=== PATIENT | female | born 1985 | race Two or more races ===

== ENCOUNTER 2024-01-09 15:21 | Outpatient (OUT) | payer MEDICAID, SELFPAY ==
[2024-01-09 15:46] LABS: Hematocrit 37.9 % (36.0-48.0); Hemoglobin 12.7 g/dL (12.0-16.0); Mean Corpuscular HGB Conc 33.5 g/dL (29.9-35.2); Mean Corpuscular Hemoglobin 33.2 pg (26.7-34.0); Mean Corpuscular Volume 99.2 fL (81.0-99.0); Mean Platelet Volume 10.8 fL (9.5-13.5); Platelet Count 294 10^3/uL (150-450); Red Blood Count 3.82 10^6/uL (4.20-5.40); White Blood Count 6.7 10^3/uL (4.0-11.0)
[2024-01-09 17:48] LABS: Alanine Aminotransferase 302 U/L (14-59); Alkaline Phosphatase 422 U/L (46-116); Amylase 64 U/L (25-115); Aspartate Amino Transferase 191 U/L (15-37); BUN Creatinine Ratio 17.6; Calcium 9.4 mg/dL (8.5-10.1); Carbon Dioxide 26.1 mmol/L (21.0-32.0); Chloride 102 mmol/L (98-107); Estimated GFR (African America >60 (>=60); Estimated GFR (Non-African Ame >60 (>=60); Globulin 4.2 g/dL; Glucose 86 mg/dL (74-106); Potassium 4.1 mmol/L (3.5-5.1); Sodium 137 mmol/L (136-145); TSH W/ REFLEX FT4 1.445 uIU/mL (0.358-3.740); Total Protein 8.2 g/dL (6.4-8.2)
== END 2024-01-09 15:22 | disposition home or self-care (01) ==
LOC: LAB 15:29
PROVIDERS: PCP Nurse Practitioner; Visit Provider Nurse Practitioner
DX: L29.9 Pruritus, unspecified (principal)
CPT/HCPCS: 36415; 80053; 82150; 83690; 84443; 85027

== ENCOUNTER 2024-01-27 09:43 | Outpatient (OUT) | payer MEDICAID, SELFPAY ==
--- NOTE | 2024-01-27 09:44 | US_ITS ---
The [address] [address] Patient Name: ANMOL QUINTERO MRN: [id number] date: 1985 Sex: F Assigned Patient Location: US Current Patient Location: Accession/Order Number: [id number] Exam Date: 01/27/2024 09:46 Report Date: 01/28/2024 06:07 At the request of: MOISES BLOOM Procedure: US right upper quadrant EXAMINATION: US right upper quadrant HISTORY: Elevated Liver Enzymes R74.8 COMPARISON: No relevant comparison available. TECHNIQUE: Transabdominal evaluation of the right upper quadrant. FINDINGS: LIVER: Normal size and echotexture. Color Doppler demonstrates patent hepatic veins. PORTAL VEIN: Duplex Doppler demonstrates normal hepatopetal flow pattern with flow velocity averaging 24 cm/s. GALLBLADDER: No visible gallstones, wall thickening, or pericholecystic free fluid. Negative sonographic Dillard's sign. BILIARY: Mildly dilated common bile duct, 7 mm. No appreciable stones or mass. PANCREAS: No visible mass, abnormal atrophy, or duct dilation. KIDNEY: No hydronephrosis. No visible mass or stones. Size: 10.2 x 4.5 x 4.3 cm US/US right upper quadrant IMPRESSION: 1. Unremarkable liver. 2. Minimally dilated common bile duct; nonspecific. No appreciable stones, mass, or abnormal appearance of the gallbladder. Electronically authenticated by: MOLLY SANDHU Date: 01/28/2024 06:07
== END 2024-01-27 09:44 | disposition home or self-care (01) ==
LOC: US 09:43
PROVIDERS: PCP Nurse Practitioner; Visit Provider Nurse Practitioner
DX: R74.8 Abnormal levels of other serum enzymes (principal)
CPT/HCPCS: 76705

== ENCOUNTER 2024-06-15 12:22 | Emergency (ER) | payer MEDICAID, SELFPAY ==
[2024-06-15 12:30] VITALS: BP 118/85; PULSE 94; TEMP 37.2; O2SAT 99; BMI 19.4
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
--- OUTSIDE RECORDS SUMMARY | 2024-06-15 12:51 | XMS_ITS | CCD ---
Author Organization [facility] Care Team Providers Care College Counselor Name Role Phone Magaly Kerr Unavailable ANAND EDWARDS Primary Care Physician [phone] ANAND EDWARDS Primary Care Unavailable RIGOBERTO Daugherty Referring Unavailab RIGOBERTO Foster Attending Unavailab RIGOBERTO Foster Admitting Unavailab Feng Daley Attending Unavailable ANAND EDWARDS Primary Care Unavailable KAMILA DURANT [facility]erring [facility] Unavailable KAMILA DURANT Referring Unavailable Chacorta Lu APRN Primary Care Provide r Chacorta Lu APRN Unavailable [phone] Kamila Durant CNP Unavailable Gerson DUNCAN, Nguyen Hanley Primary Care Provider Fili BINDER COVERSTITCHAnand Unavailable Merle BINDER COVERSTITCH, [place] Primary Care Provider Merle MAPPER - BINDER COVERSTITCH, [place] Primary Care Provider CHACORTA LU Primary Care Unavailab Jose Hensley Referring Unavailable CHACORTA LU Primary Care Unavailab KAMILA Mccullough Referring Unavailable Jose Paulino Attending Unavailable LOR DAVIS Admitting Unavailable CHACORTA LU Primary Care Unavailab LOR Viear Attending Unavailable [facility] Care Unavailable DEMAR TOPETE Referring Unavailable RUSTY YADAV Admitting Unavailable RUSTY YADAV Attending Unavailable [facility] Unavailable Allergies Allergy Classification Reported Allergen(s) Allergy Type Date of Onset Reaction(s) Facility (1 source) No Known Medication Allergies; Translations: [No Known Medication Allergies] Propensity to adverse reactions (disorder) [facility] Repository (3 sources) Adhesive Tape; Translations: [ADHESIVE TAPE (ROSINS)] Propensity to adverse reactions to substance Intolerance [facility] Medications Current Medications Medication Drug Class(es) Dates Sig (Normalized) Sig (Original) amoxicillin 500 mg oral capsule (1 source) Penicillin-class Antibacterial Start: 05-22-2021 take 1 capsule by mouth every eight hours Amoxicillin 500 MG 1 capsule Orally Three times a day for 7 day(s) May, Active budesonide 3 mg delayed release oral capsule (1 source) Corticosteroid Start: 05-21-2024 End: 05-21-2025 take 2 capsules by mouth once daily budesonide (ENTOCORT EC) 3 MG delayed release capsule Take 2 capsules by mouth daily 05/21/2024 05/21/2025 Active cetirizine hydrochloride 5 mg oral tablet (1 source) Histamine-1 Receptor Antagonist End: 05-22-2024 take 1 tablet by mouth once daily cetirizine (ZYRTEC) 5 MG tablet Take 1 tablet by mouth daily 05/22/2024 Discontinued cholecalciferol 0.125 mg oral tablet (1 source) Vitamin D take 1 tablet by mouth once daily vitamin D3 (CHOLECALCIFEROL) 125 MCG (5000 UT) TABS tablet Take 1 tablet by mouth Every Day Active cyclobenzaprine hydrochloride 10 mg oral tablet (3 sources) Muscle Relaxant Start: 11-20-2014 End: 05-22-2024 take 1 tablet by mouth three times daily Flexeril 10 mg Tab 10 mg = 1 tab(s), Oral, TID, Refills(s) 0 Start Date: 11/20/14 Status: Ordered hydrocortisone acetate 10 mg/ml / pramoxine hydrochloride 10 mg/ml rectal foam (3 sources) Corticosteroid Start: 11-20-2014 Proctofoam HC rectal foam 1 lina, Rectal, TID, 10 gram, Refill(s) 0 Start Date: 11/20/14 Status: Ordered Start: 11-20-2014 End: 05-22-2024 Hydrocort-Pramoxine, Periana l, (PROCTOFOAM HC) 1-1 % rectal foam Place rectally 11/20/2014 05/22/2024 Discontinued hydrOXYzine hydrochloride 25 mg oral tablet (3 sources) Antihistamine Start: 01-09-2024 take 1 tablet by mouth three times daily as needed hydrOXYzine HCl (ATARAX) 25 MG tablet 1 tablet as needed Orally three times a day for 30 days 01/09/2024 Active hydrOXYzine pamo ate (VISTARIL) 25 mg capsule Take 25 mg by mouth. Active Ibuprofen (7 sources) Nonsteroidal Anti-inflammatory Drug IBUPROFEN ORAL Ta ke by mouth. Active IBUPROFEN 100 MG/5 ML ORAL SOLN CMPD (1 source) End: IBUPROFEN 100 MG/5 ML ORAL SOLN CMPD Take by mouth 05/22/2024 Discontinued lidocaine hydrochloride 20 mg/ml mucous membrane topical solution (1 source) Antiarrhythmic, Amide Local Anesthetic Start: take 15 mL by mouth every three hours as needed Lidocaine Viscous HCl 2 % 15 ml as needed Mouth/Throat every 3 hrs for 2 days May, Active multivitamin with minerals (HAIR,SKIN AND NAILS ORAL) (7 sources) multivitamin wit h minerals (HAIR,SKIN AND NAILS ORAL) Take by mouth. Active naloxone 0.4 mg in 10 mL sodium chloride syringe (1 source) Start: IntraVENous, PRN, Opioid Reversal, Starting on Sat05/22/24 at 1018, PRN if respiratory rate is less than 6/min and patient is difficult to arouse then notify physician STAT. Mix 9 mL of sodium chloride 0.9% with 0.4 mg (1 mL) of naloxone (NARCAN) in 10 mL syringe. (Note: dilution is 0.04 mg/mL) Give 0.08 mg (2 mL of special dilution), slow IV push, repeat up to 0.4 mg (10 mL) or until patient is responsive to physical stimulation and respiratory rate is equal to or greater than 6 breaths/min. Continue to observe, if no response within 3 minutes of administration of 0.4 mg (10 mL) total, repeat dose (0.4 mg as administered previously). Concentration 0.04 mg/mL, PACU only Naproxen (3 sources) Nonsteroidal Anti-inflammatory Drug Start: naproxen Oral, PRN Pain - Mild, Refills(s) 0 Start Date: 11/20/14 Status: Ordered Start: 11-20-2014 End: 05-22-2024 naproxen (NAPROSYN) 125 MG/5 ML suspension Take by mouth 11/20/2014 05/22/2024 Discontinued 1000 ml sodium chloride 9 mg/ml injection (6 sources) Start: 05-22-2024 IntraVENous, a t 5-250 mL/hr, PRN, if patient receiving piggyback infusions and maintenance fluids are not ordered, Starting on Sat05/22/24 at 1018, For piggyback infusion, administer at same rate as piggyback for a total of 25 mL. Enter 25 mL into dose field and piggyback rate into rate field of order. If piggyback is infusing at a rate less than 100 mL/hr, enter 25 mL into dose field and 100 mL/hr into rate field of order., PACU only Start: 05-22-2024 5-40 mL, Intra VENous, EVERY 12 HOURS SCHEDULED (2 times per day), First dose on Sat05/22/24 at 1045, Until Discontinued, For Line Patency: Peripheral IV = 5 mL; Midline or Central Line = 10 mL/lumen. If following IV push medication, administer flush at same rate as the IV push. Flush volume is determined by type of infusion therapy being given. For non-viscous solutions use: Peripheral IV = 5 mL Midline or Central Line = 10 mL/lumen For viscous solutions (i.e. blood components, parenteral nutrition, contrast media, or after obtaining blood sample) use: Peripheral IV = 10 mL Midline or Central Line = 20 mL/lumen, Pre-op (day of surgery) Start: 05-22-2024 5-40 mL, Intra VENous, PRN, Starting on Sat05/22/24 at 1018, Until Discontinued, Line Care, After every IV line use, For Line Patency: Peripheral IV = 5 mL; Midline or Central Line = 10 mL/lumen. If following IV push medication, administer flush at same rate as the IV push. Flush volume is determined by type of infusion therapy being given. For non-viscous solutions use: Peripheral IV = 5 mL Midline or Central Line = 10 mL/lumen For viscous solutions (i.e. blood components, parenteral nutrition, contrast media, or after obtaining blood sample) use: Peripheral IV = 10 mL Midline or Central Line = 20 mL/lumen, PACU only triamcinolone acetonide 0.005 mg/mg topical ointment (3 sources) Corticosteroid triamcinolone (ARISTOCORT) 0.5 % ointment Apply topically 2 times daily Active ursodiol 300 mg oral capsule (1 source) Bile Acid Start: 4 End: take 1 capsule by mouth twice daily ursodiol (ACTIGALL) 300 MG capsule Take 1 capsule by mouth 2 times daily 05/21/2024 05/21/2025 Active Completed/Discontinued Medications Medication Drug Class(es) Dates Sig (Normalized) Sig (Original) ciprofloxacin 500 mg oral tablet (2 sources) Quinolone Antimicrobial Start: 11-20-2014 take 1 tablet by mouth twice daily Cipro 500 mg Tab 500 mg = 1 tab(s), Oral, BID, Take one tab by mouth twice a day for seven days, # 14 tab(s), Refills(s) 0 Start Date: 11/20/14 Status: Ordered Dicyclomine (1 source) Anticholinergic Dicyclomine HCl Not-Taking Ondansetron (1 source) Serotonin-3 Receptor Antagonist Ondansetron Not-Taking Problems Active Problems Problem Classification Problem Date Documented Da te Episodic/Chronic Cardiac dysrhythmias (1 source) Palpitations; Translations: [Palpitations] Onset: 02-08-2022 Episodic Other gastrointestinal disorders (1 source) Irritable bowel syndrome with diarrhea; Translations: [Irritable bowel syndrome with diarrhea] Chronic Other liver diseases (3 sources) Disease of liver; Translations: [Liver disease, unspecified] 04-06-2024 Chronic Other liver diseases (2 sources) Primary biliary cholangitis; 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] Onset: 05-22-2024 05-22-2024 Chronic Other liver diseases (2 sources) Liver disease, unspecified; Translations: [Disease of liver] Onset: 04-13-2024 Chronic Other liver diseases (1 source) Abnormal levels of other serum enzymes; Translations: [Abnormal levels of other serum enzymes] Onset: 02-04-2024 Episodic Other screening for suspected conditions (not mental disorders or infectious disease) (5 sources) Antibody studies abnormal; Translations: [Abnormal immunological findings in specimens from other organs, systems and tissues] Onset: 05-22-2024 05-22-2024 Episodic Spondylosis; intervertebral disc disorders; other back problems (2 sources) Neck pain 11-20-2014 Episodic Substance-related disorders (3 sources) Smoker; Translations: [Nicotine dependence, unspecified, uncomplicated] Onset: 01-29-2024 11-20-2014 Chronic Comment on above: Added secondary to d ocumentation in Social History. Past or Other Problems Problem Classification Problem Date Documented Da te Episodic/Chronic Disorders of teeth and jaw (1 source) Periapical abscess without sinus Onset: 05-22-2021 Resolved: 05-22-2021 Episodic Gastritis and duodenitis (1 source) Gastritis; Translations: [Gastritis, unspecified, without bleeding] Episodic Results Test Name Value Interpretation Reference Range Facility EGDon 05-22-2024 No dictation [facility] EGDOrdered By: User Epic on 05-22-2024 [facility] Work Phone: HCG, ,Urineon 05-22 Beta HCG ( test) Ql (U) Negative Normal NEG [facility] Comment on above: Result Comment: Spec imens with hCG levels near the threshold of the test (25 mIU/mL) may give a negative or indeterminate result. In such cases, another test should be performed with a new specimen in 48-72 hours. If early is suspected clinically in this setting, correlation with quantitative serum b-hCG level is suggested. [facility] has confirmed the use of plasma for this test. This has not been cleared or approved by the U.S. Food and Drug Administration. The FDA has determined that such clearance is not necessary. Performed By: #### U HCG #### [facility] [address] [place] [address] [place] [address] Medical Cost Consultant: Pawel Rogers MD , Urineon 4 HCG ( test) Ql (U) Negative NEGATIVE [facility] Comment on above: Specimens with hCG l evels near the threshold of the test (25 mIU/mL) may give a negative or indeterminate result. In such cases, another test should be performed with a new specimen in 48-72 hours. If early is suspected clinically in this setting, correlation with quantitative serum b-hCG level is suggested. [facility] has confirmed the use of plasma for this test. This has not been cleared or approved by the U.S. Food and Drug Administration. The FDA has determined that such clearance is not necessary. [facility] Surgical Pathology Reporton 05-22-2024 Surgical Pathology Report (NOTE) Path Number: [id number] -- Diagnosis -- A. DISTAL DUODENUM, BIOPSY: Unremarkable duodenal mucosa. No significant villous blunting or increased intraepithelial lymphocytes. B. DUODENAL BULB, BIOPSY: Unremarkable duodenal mucosa. C. GASTRIC ANTRUM, BIOPSY: Unremarkable gastric mucosa. No Helicobacter organisms identified by PRISCA stain. Separate fragment of unremarkable duodenal mucosa. D. GASTRIC BODY, BIOPSY: Unremarkable gastric mucosa. Tori Zamorano M.D. Electronically Signed Out kmg2/05/27/2024 Clinical Information Pre-Op Diagnosis: ABNORMAL CELIAC ANTIBODY PANEL Operative Findings: DISTAL DUODENUM BX; DUODENAL BULB; GASTRIC ANTRUM; BODY OF THE STOMACH Operation Performed: ESOPHAGOGASTRODUODENOSCOPY BIOPSY se Source of Specimen A: DISTAL DUODENUM BX B: DUODENAL BULB C: GASTRIC ANTRUM BIOPSY D: BODY STOMACH BIOPSY Gross Description A. ANMOL LEON, DISTAL DUODENUM BX Received in formalin are four allison-white tissue fragments from 0.1 to 0.9 cm and are 1.9 x 0.3 x 0.2 cm in aggregate. Entirely 1cs. B. ANMOL LEON, DUODENAL BULB Received in formalin are four allison-white tissue fragments from 0.2 to 0.8 cm and are 1.7 x 0.2 x 0.2 cm in aggregate. Entirely 1cs. C. ANMOL LEON, GASTRIC ANTRUM Received in formalin are three allison-white tissue fragments from < 0.1 to 0.7 cm and are 1.4 x 0.5 x 0.2 cm in aggregate. Entirely 1cs. D. ANMOL LEON, BODY OF THE STOMACH Received in formalin are four allison-white tissue fragments from 0.1 to 0.8 cm and are 1.6 x 0.2 x 0.2 cm in aggregate. Entirely 1cs. jj tm Abdiaziz Briceño M.D./se:05/25/2024 Microscopic Description A-D. Microscopic examination performed. Processing Lab: [address] [id number] Interpretation Performed at [facility] [place] [facility] [address] [place] [address] SURGICAL PATHOLOGY CONSULTATION Patient Name: ANMOL GUARDADO [facility] Rec: [id number] [facility] ANATOMIC PATHOLOGY [address] [place], [place] [address] [facility] 05-21-2024 CNPN Telephone (GASTA5) ANMOL GUARDADO ([id number]) 1985 F Date Time Provider Department 05/21/24 JOSE PAULINO GASTA5 During your visit today, we recorded the following information about you: Luzma Gaxiola, ILIANA 05/21/2024 8:28 AM Signed Pt sent the following mcm: I've recently experienced bruising horribly all over my legs without injuring involved. I've also been experiencing pains in my right ribs cage all the way down, middle of sternum area and chest pains. No shortness of breath. My legs have been aching horribly as well. Following up with dining room host on Jun.01 to hopefully start injections for the itching bc the cream they prescribed me is not helping and it's been the same. Severe, especially at night. It's not allowing me to attach photos. I was wanting to send of my legs. My body scarring from the rash as well too. They are on my buttocks as well the rash and scarring from itching. No other extremities except, legs, upper and lower back, chest, stomach, and buttocks. Nurse advised: -We will forward the images and update to Dr. Paulino I always recommend going to the ER or urgent care when new or worsening symptoms occur, especially with chest pain involved. It is best to be evaluated by a provider in person to rule out any other causes of the chest pain and other symptoms. It also looks like your liver biopsy resulted, we will also let him know of this in order for him to review it Pictures attached under scanned docs (Patient entered attachments) Luzma Gaxiola RN May 21, 2024 8:27 AM Jose Paulino MD 05/21/2024 2:54 PM Addendum I spoke with her about liver biopsy; together with elevated alk phos and AMA dx PBC is secure Whether there is a element of autoimmune hepatitis (based on AST and ALT but not biopsy) is problematic That said, I want her on ursodiol 300 mg BID (55 kg) AND budesonide 6 mg per day monthly labs call if problems see me Aug as scheduled Jose Paulino MD Liver, transjugular biopsy (corrected sinusoidal pressure 8 mmHg): - Features compatible with primary biliary cholangitis. - Bridging fibrosis. - See comment. Diagnosis Comment The trichrome highlights distorted liver architecture with bridging fibrosis. The portal tracts contain moderate to dense inflammatory infiltrates of predominantly lymphocytes, admixed with plasma cells, eosinophils, and neutrophils. There are scattered foci of interface activity. Bile ductular reaction is present. Many portal tracts are incomplete, which makes evaluation of bile ducts difficult. Interlobular bile duct injury is evident, and there is a concern for interlobular bile duct loss. The lobular parenchyma exhibits rare foci of necroinflammatory activity. Plasma cells are not prominent in portal tracts or lobular parenchyma. There is no evidence of significant steatosis or cholestasis. The iron stain is negative. The PAS-D stain is negative for intracytoplasmic globules in hepatocytes. Immunohistochemical stain for CK7 highlights bile ducts, bile ductules, and intermediate hepatocytes. 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 There is no definitive histologic evidence of autoimmune hepatitis in this biopsy, although the possibility of autoimmune hepatitis-primary biliary cholangitis overlap syndrome cannot be entirely excluded. Clinical correlation and follow-up are suggested. Jose Paulino MD 05/21/2024 2:54 PM Signed Addended by: JOSE PAULINO on: 05/21/2024 02:54 PM Modules accepted: Orders Allergies As of Date: 05/21/2024 Noted Allergy Reaction TAPE (ADHESIVE TAPE (ROSINS)) 05/11/2024 5 - Intolerance Comments: Plastic medical tape Date Reviewed: 05/11/2024 Reviewed by: Iesha Bazan RN - Fully Assessed Reason for Visit: Patient Update [1234] Patient Question [6297] Primary Visit Diagnosis:Primary biliary cholangitis (HCC) [K74.3] Order(s):ursodiol (ACTIGALL) 300 mg capsuleTake 1 capsule by mouth two times a day.Disp: 180 capsuleRfl: 3 budesonide, enteric coated (ENTOCORT EC) 3 mg 24 hr capsuleTake 2 capsules by mouth once daily.Disp: 60 capsuleRfl: 11 HEPATIC FUNCTION PNL [SQHFP] Order #: [id number] STANDING Prescriptions as of 05/21/2024 - ursodiol (ACTIGALL) 300 mg capsule Take 1 capsule by mouth two times a day. - budesonide, enteric coated (ENTOCORT EC) 3 mg 24 hr capsule Take 2 capsules by mouth once daily. - hydrOXYzine pamoate (VISTARIL) 25 mg capsule Take 25 mg by mouth. - triamcinolone acetonide topical 0.5 % ointment Apply to affected area two times a day. - IBUPROFEN ORAL Take by mouth. - multivitamin with minerals (HAIR,SKIN AND NAILS ORAL) Take by mouth. (more content not included)... Normal [facility] BRIEF OP NOTon 05-11-2024 BRIEF OP NOT HNO ID: [id number] Author: LOR DAVIS MD Service: Interventional Radiology Author Type: Physician Type: Brief Op Note Filed: 05/11/2024 16:19 Note Text: BRIEF OPERATIVE / PROCEDURE NOTE LOG ID: [id number] SURGERY/PROCEDURE DATE: 05/11/2024 INCISION/PROCEDURE START TIME: 3:43 PM INCISION CLOSE/PROCEDURE END TIME: SURGEON(S)/PROCEDURALIST(S) AND METAL PATTERN MAKER(S): Surgeons and Role: * Lor Davis MD - Primary No Additional Staff SURGERY/PROCEDURE(S): 4:06 PM ANESTHESIA: Procedural Sedation FINDINGS: Successful TJLBx with pressure measurements as follows (mmHg): RA: 0 IVC:0 FWHV: 1 WRHV: 9 ESTIMATED BLOOD LOSS: <10 mls SPECIMENS: 18G x 3 COMPLICATIONS: None CLOSURE TECHNIQUE: Primary PRE-OP/PRE-PROCEDURE DIAGNOSIS: Elevated LFTs POST-OP/POST-PROCEDURE DIAGNOSIS: Same as Preop SIGNATURE: Lor Davis MD PATIENT NAME: Anmol Guardado DATE: May 11, 2024 TIME: 4:06 PM Normal [facility] HISTORY PHYSICALon HISTORY PHYSICAL HNO ID: [id number] Author: LOR DAVIS MD Service: Interventional Radiology Author Type: Physician Type: H&P Filed: 05/11/2024 14:53 Note Text: RADIOLOGY PROCEDURAL SEDATION HISTORY AND PHYSICAL EXAM SERVICE DATE: 05/11/2024 SERVICE TIME: 2:53 PM Subjective HPI: This is a 39 year old female who presents with chronically elevated LFTs, 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 PROCEDURE SCHEDULED: Procedure(s) with comments: TRANSCATHETER BIOPSY (N/A) - spk to pt 04/16 RADIOLOGY ORDER PLACED: PAST ANESTHESIA HISTORY: No history of adverse event No past medical history on file. No past surgical history on file. Prior to Admission medications as of 05/11/24 1414 Medication Sig Last Dose Taking triamcinolone acetonide topical 0.5 % ointment Apply to affected area two times a day. 05/11/2024 Yes IBUPROFEN ORAL Take by mouth. 05/10/2024 Yes hydrOXYzine pamoate (VISTARIL) 25 mg capsule Take 25 mg by mouth. 05/09/2024 multivitamin with minerals (HAIR,SKIN AND NAILS ORAL) Take by mouth. ALLERGIES Allergen Reactions Tape [Adhesive Tape* Intolerance Plastic medical tape Objective PHYSICAL EXAM: The remainder of the physical exam is noncontributory. AIRWAY: Airway Visualization of Uvula: Yes Mouth opening greater than 2 fingerbreadths: Yes Neck Full Range of Motion: Yes LUNGS: Lungs clear to auscultation, Good diaphragmatic excursion CARDIAC: Normal S1 and S2; no rubs, murmurs, or gallops Assessment/Plan ASA Class: ASA Class: Patient with severe systemic disease Provisional Diagnosis/Treatment Plan: Elevated LFTs and autoimmune hepatitis. Sedation Goal: Moderate SIGNATURE: Lor Davis MD PATIENT NAME: Anmol Guardado DATE: May 11, 2024 TIME: 2:45 PM Normal [facility] IR TRANSJUG LIVER BX W/PRESS on 05-11-2024 IR TRANSJUG LIVER BX W/PRESS * * *Final Report* * * DATE OF EXAM: May 11 2024 4:06PM [facility] [id number] - IR TRANSJUG LIVER BX W/PRESS / PROCEDURE REASON: K76.9-Liver disease * * * * Physician Interpretation * * * * PROCEDURE: TRANSJUGULAR LIVER BIOPSY WITH PRESSURE MEASUREMENTS Procedural Personnel Attending physician(s): Lor Davis M.D. Fellow physician(s): None Resident physician(s): None Advanced practice provider(s): None Medical Student(s): None Pre-procedure diagnosis: Liver dysfunction Post-procedure diagnosis: Same Indication: Elevated liver enzymes Additional clinical history: Autoimmune hepatitis. Fibrosis suspected from ultrasound LEFT sonography. PROCEDURE SUMMARY: - Venous access with ultrasound guidance - Hepatic venography - Pressure measurements - Transjugular liver biopsy with fluoroscopic guidance - Additional procedure(s): None PROCEDURE DETAILS: Pre-procedure Consent: Risks, benefits, treatment options, potential complications and personnel to be involved were discussed (including the risks of radiation exposure, contrast and anesthesia administration, and any equipment needed for the procedure to ensure best possible outcome) with the patient and all questions were answered and consent was obtained prior to procedure. Premedicated for contrast allergy: n/a Transfusion of blood products: No Medication reconciliation: The patient's medications and allergies were reviewed in the electronic medical record and reconciled to the proposed procedure/treatment. Alanis-procedure discussion: The appropriate elements of the pre-procedure discussion, safety check list and sign-out were performed. Time out: A time out was performed immediately prior to procedure start with the nursing and interventional team, correctly identifying the name, date of , procedure, anatomy (including marking of site and side if applicable), patient position, procedure consent form, relevant diagnostic and radiology test results, antibiotic administration if applicable, safety precautions, and procedure-specific equipment needs. Start of procedure: 3:43 PM End of procedure: 4:06 PM Patient position: Supine Preparation: The site was prepared and draped using all elements of maximal sterile barrier technique including sterile gloves, sterile gown, cap, mask, large sterile sheet, sterile ultrasound probe cover, hand hygiene and cutaneous antisepsis. Contrast Contrast agent: OMNIPAQUE 240 Contrast volume (mL): 5 Image Guidance Fluoroscopic and sonographic FLUOROSCOPIC RADIATION SUMMARY: Plane A, Air Kerma: 4.0 mGy Dose Area Product (DAP): 56.96 Fluoro Time: 3:48 min:sec Radiation dose exceed 5 Gy: No If radiation dose exceeded 5 Gy, was counseling and instructional brochure provided: N/A Anesthesia/sedation Level of anesthesia/sedation: Moderate sedation (conscious sedation) Anesthesia/sedation administered by: Independent trained observer under attending supervision with continuous monitoring of the patient?s level of consciousness and physiologic status Total intra-service sedation time (minutes): 23 minutes Local anesthesia: 2 % lidocaine Intraprocedural med: None Intraprocedural med: None Access Local anesthesia was administered. The vessel was sonographically evaluated and determined to be patent. Real time ultrasound was used to visualize needle entry into the vessel and a permanent image was stored. Vein accessed: Right internal jugular vein Access technique: Micropuncture set with 21 gauge needle A 9 F sheath was placed. Venography Vein catheterized: Right hepatic vein Indication for venography: Document catheter position and to assess for caliber of hepatic vein Findings: No filling defects or narrowing of the hepatic vein Pressure measurements Pressure measurements were obtained via balloon occlusion catheter. Mean right atrial pressure (mmHg): 0 Mean inferior vena cava pressure (mmHg): 0 Mean free hepatic vein pressure (mmHg): 1 Mean wedged hepatic vein pressure (mmHg): 9 Biopsy Samples were obtained of the liver parenchyma from the hepatic vein using the transjugular liver biopsy set. Core needle biopsy device: Argon TLAB 7 F Transjugular Liver Biopsy System (18 G needle) Core needle size (gauge): 18 G Number of passes: 3 Number of core specimens: 3 Specimen preparation: Formalin Additional Details Additional description of procedure: None Equipment details: 5 F MPA catheter and 5.5 F Zaida balloon Estimated blood loss (mL): Less than 10 Standardized report: SIR_TransjugularLiverBiopsyP ressures_v2 Closure The sheath was removed and hemostasis was achieved with manual compression and no additional aid. A sterile bandage was applied. Complications There were no immediate complications and no other complications. Conclusion The patient was comfor (more content not included)... Normal [facility] NURSING PROGon 05-11-2024 NURSING PROG HNO ID: [id number] Author: ALBA REVELES, RN Service: Nursing Author Type: Registered Nurse Type: Nursing Progress Note Filed: 05/12/2024 08:16 Note Text: Completed post procedure phone call. Patient is feeling well and has returned to activity. She denies questions or concerns related to transjugular liver biopsy appointment and had no surgical site concerns other than some soreness that is manageable. Instructed to call to [phone] with any questions/concerns. Normal [facility] SURGICAL PATHOLOGYon 024 CASE REPORT Normal [facility] Comment on above: Order Comment: Christine knutson Type: TISSUE SPECIMEN Ordering Facility: [facility] Address: [address] [place] [address] Result Comment: Surg ical Pathology Report Case: [id number] Authorizing Provider: Lor Davis MD Collected: 05/11/2024 03:59 PM Ordering Location: [place] [address] Received: 05/11/2024 05:52 PM Pathologist: Bebeto Ayala MD Specimen: Liver, Biopsy Performed By: #### S #### [facility] CLIA [id number] [address] [place] [address] [place] CLINICAL HISTORY Elevated LFTs; autoi mmune hepatitis Normal [facility] Comment on above: Order Comment: Christine knutson Type: TISSUE SPECIMEN Ordering Facility: [facility] Address: [address] [place] [address] Performed By: #### S #### [facility] CLIA [id number] [address] [place] [address] [place] DIAGNOSIS COMMENT Normal [facility] Comment on above: Order Comment: Christine knutson Type: TISSUE SPECIMEN Ordering Facility: [facility] Address: [address] [place] [address] Result Comment: The trichrome highlights distorted liver architecture with bridging fibrosis. The portal tracts contain moderate to dense inflammatory infiltrates of predominantly lymphocytes, admixed with plasma cells, eosinophils, and neutrophils. There are scattered foci of interface activity. Bile ductular reaction is present. Many portal tracts are incomplete, which makes evaluation of bile ducts difficult. Interlobular bile duct injury is evident, and there is a concern for interlobular bile duct loss. The lobular parenchyma exhibits rare foci of necroinflammatory activity. Plasma cells are not prominent in portal tracts or lobular parenchyma. There is no evidence of significant steatosis or cholestasis. The iron stain is negative. The PAS-D stain is negative for intracytoplasmic globules in hepatocytes. Immunohistochemical stain for CK7 highlights bile ducts, bile ductules, and intermediate hepatocytes. 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 There is no definitive histologic evidence of autoimmune hepatitis in this biopsy, although the possibility of autoimmune hepatitis-primary biliary cholangitis overlap syndrome cannot be entirely excluded. Clinical correlation and follow-up are suggested. Laboratory Developed Test (LDT) Disclaimer: Performance characteristics of immunohistochemical, immunofluorescent and chromogenic in-situ hybridization tests have been determined by the performing laboratory within [facility] Medicine Department ([facility], [facility], [facility], [facility], [facility], [facility], or [facility]) in a manner consistent with CLIA requirements. One or more of these tests have not been cleared or approved by the FDA. [facility] is regulated under CLIA as qualified to perform high-complexity testing. These tests are used for clinical purposes. They should not be regarded as investigational or for research. Positive and negative controls stain appropriately. Performed By: #### S #### [facility] CLIA [id number] [address] [place] [address] [place] FINAL DIAGNOSIS Normal [facility] Comment on above: Order Comment: Speci men Type: TISSUE SPECIMEN Ordering Facility: [facility] Address: [address] [place] [address] Result Comment: Live r, transjugular biopsy (corrected sinusoidal pressure 8 mmHg): - Features compatible with primary biliary cholangitis. - Bridging fibrosis. - See comment. Performed By: #### S #### [facility] CLIA [id number] [address] [place] [address] [place] FINAL PERFORMING LAB Normal [facility] Comment on above: Order Comment: Speci men Type: TISSUE SPECIMEN Ordering Facility: [facility] Address: [address] [place] [address] Result Comment: Diag nostic interpretation performed at [facility], [address] [place] [address] CLIA# [id number] Table Cover Folder: Neri Hood M.D. Performed By: #### S #### [facility] CLIA [id number] [address] [place] [address] [place] GROSS DESCRIPTION Normal [facility] Comment on above: Order Comment: Speci men Type: TISSUE SPECIMEN Ordering Facility: [facility] Address: [address] [place] [address] Result Comment: Casey ruffin, Biopsy Received in formalin on Telfa gauze are multiple segments of cylindrical tissue aggregating to 1.8 x 0.3 x 0.1 cm, allison-brown and of a soft and friable consistency. Totally submitted in one cassette. DL May 11, 2024 8:35 PM Gross examination performed at [facility], [address] [place] [address] Performed By: #### S #### [facility] CLIA [id number] [address] [place] [address] [place] CBC W Auto Differential pane l (Bld)on 05-08-2024 Basophils (Bld) [#/Vol] 0.06 10*3/uL Normal <0.11 [facility] Comment on above: Order Comment: Speci men Type: BLOOD SPECIMEN Ordering Facility: [facility] Address: [address] [place] [address] Performed By: #### 5 7021-8 #### [facility] CLIA [id number] [address] [place] [address] [place] Basophils/100 WBC (Bld) 1.1 % Normal [facility] Comment on above: Order Comment: Speci men Type: BLOOD SPECIMEN Ordering Facility: [facility] Address: [address] [place] [address] Performed By: #### 5 7021-8 #### [facility] CLIA [id number] [address] [place] [address] [place] Differential cell count method Nom (Bld) Auto Normal [facility] Comment on above: Order Comment: Speci men Type: BLOOD SPECIMEN Ordering Facility: [facility] Address: [address] [place] [address] Performed By: #### 5 7021-8 #### [facility] CLIA [id number] [address] [place] [address] [place] Eosinophils (Bld) [#/Vol] 0.34 10*3/uL Normal <0.46 [facility] Comment on above: Order Comment: Speci men Type: BLOOD SPECIMEN Ordering Facility: [facility] Address: [address] [place] [address] Performed By: #### 5 7021-8 #### [facility] CLIA [id number] [address] [place] [address] [place] Eosinophils/100 WBC (Bld) 6.0 % Normal [facility] Comment on above: Order Comment: Speci men Type: BLOOD SPECIMEN Ordering Facility: [facility] Address: [address] [place] [address] Performed By: #### 5 7021-8 #### [facility] CLIA [id number] [address] [place] [address] [place] Erythrocyte distribution width (RBC) [Ratio] 13.6 % Normal 11.5-15.0 [facility] Comment on above: Order Comment: Speci men Type: BLOOD SPECIMEN Ordering Facility: [facility] Address: [address] [place] [address] Performed By: #### 5 7021-8 #### [facility] CLIA [id number] [address] [place] [address] [place] Hematocrit (Bld) [Volume fraction] 39.9 % Normal 36.0-46.0 [facility] Comment on above: Order Comment: Speci men Type: BLOOD SPECIMEN Ordering Facility: [facility] Address: [address] [place] [address] Performed By: #### 5 7021-8 #### [facility] CLIA [id number] [address] [place] [address] [place] Hemoglobin (Bld) [Mass/Vol] 13.2 g/dL Normal 11.5-15.5 [facility] Comment on above: Order Comment: Speci men Type: BLOOD SPECIMEN Ordering Facility: [facility] Address: [address] [place] [address] Performed By: #### 5 7021-8 #### [facility] CLIA [id number] [address] [place] [address] [place] Immature granulocytes (Bld) [#/Vol] 10*3/uL Normal <0.10 [facility] Comment on above: Order Comment: Speci men Type: BLOOD SPECIMEN Ordering Facility: [facility] Address: [address] [place] [address] Performed By: #### 5 7021-8 #### [facility] CLIA [id number] [address] [place] [address] [place] Immature granulocytes/100 WBC (Bld) 0.4 % Normal [facility] Comment on above: Order Comment: Speci men Type: BLOOD SPECIMEN Ordering Facility: [facility] Address: [address] [place] [address] Performed By: #### 5 7021-8 #### [facility] CLIA [id number] [address] [place] [address] [place] Lymphocytes (Bld) [#/Vol] 2.31 10*3/uL Normal 1.00-4.00 [facility] Comment on above: Order Comment: Speci men Type: BLOOD SPECIMEN Ordering Facility: [facility] Address: [address] [place] [address] Performed By: #### 5 7021-8 #### [facility] CLIA [id number] [address] [place] [address] [place] Lymphocytes/100 WBC (Bld) 41.0 % Normal [facility] Comment on above: Order Comment: Speci men Type: BLOOD SPECIMEN Ordering Facility: [facility] Address: [address] [place] [address] Performed By: #### 5 7021-8 #### [facility] CLIA [id number] [address] [place] [address] [place] MCH (RBC) [Entitic mass] 33.2 pg Normal 26.0-34.0 [facility] Comment on above: Order Comment: Speci men Type: BLOOD SPECIMEN Ordering Facility: [facility] Address: [address] [place] [address] Performed By: #### 5 7021-8 #### [facility] CLIA [id number] [address] [place] [address] [place] MCHC (RBC) [Mass/Vol] 33.1 g/dL Normal 30.5-36.0 [facility] Comment on above: Order Comment: Speci men Type: BLOOD SPECIMEN Ordering Facility: [facility] Address: [address] [place] [address] Performed By: #### 5 7021-8 #### [facility] CLIA [id number] [address] [place] [address] [place] MCV (RBC) [Entitic vol] 100.3 fL High 80.0-100.0 [facility] Comment on above: Order Comment: Speci men Type: BLOOD SPECIMEN Ordering Facility: [facility] Address: [address] [place] [address] Performed By: #### 5 7021-8 #### [facility] CLIA [id number] [address] [place] [address] [place] Monocytes (Bld) [#/Vol] 0.62 10*3/uL Normal <0.87 [facility] Comment on above: Order Comment: Speci men Type: BLOOD SPECIMEN Ordering Facility: [facility] Address: [address] [place] [address] Performed By: #### 5 7021-8 #### [facility] CLIA [id number] [address] [place] [address] [place] Monocytes/100 WBC (Bld) 11.0 % Normal [facility] Comment on above: Order Comment: Speci men Type: BLOOD SPECIMEN Ordering Facility: [facility] Address: [address] [place] [address] Performed By: #### 5 7021-8 #### [facility] CLIA [id number] [address] [place] [address] [place] Neutrophils (Bld) [#/Vol] 2.28 10*3/uL Normal 1.45-7.50 [facility] Comment on above: Order Comment: Speci men Type: BLOOD SPECIMEN Ordering Facility: [facility] Address: [address] [place] [address] Performed By: #### 5 7021-8 #### [facility] CLIA [id number] [address] [place] [address] [place] Neutrophils/100 WBC (Bld) 40.5 % Normal [facility] Comment on above: Order Comment: Speci men Type: BLOOD SPECIMEN Ordering Facility: [facility] Address: [address] [place] [address] Performed By: #### 5 7021-8 #### [facility] CLIA [id number] [address] [place] [address] [place] Nucleated RBC (Bld) [#/Vol] 10*3/uL Normal <0.01 [facility] Comment on above: Order Comment: Speci men Type: BLOOD SPECIMEN Ordering Facility: [facility] Address: [address] [place] [address] Performed By: #### 5 7021-8 #### [facility] CLIA [id number] [address] [place] [address] [place] Nucleated RBC/100 WBC (Bld) [Ratio] 0.0 /100 WBC Normal [facility] Comment on above: Order Comment: Speci men Type: BLOOD SPECIMEN Ordering Facility: [facility] Address: [address] [place] [address] Performed By: #### 5 7021-8 #### [facility] CLIA [id number] [address] [place] [address] [place] Platelet mean volume (Bld) [Entitic vol] 11.9 fL Normal 9.0-12.7 [facility] Comment on above: Order Comment: Speci men Type: BLOOD SPECIMEN Ordering Facility: [facility] Address: [address] [place] [address] Performed By: #### 5 7021-8 #### [facility] CLIA [id number] [address] [place] [address] [place] Platelets (Bld) [#/Vol] 280 10*3/uL Normal 150-400 [facility] Comment on above: Order Comment: Speci men Type: BLOOD SPECIMEN Ordering Facility: [facility] Address: [address] [place] [address] Performed By: #### 5 7021-8 #### [facility] CLIA [id number] [address] [place] [address] [place] RBC (Bld) [#/Vol] 3.98 10*6/uL Normal 3.90-5.20 [facility] Comment on above: Order Comment: Speci men Type: BLOOD SPECIMEN Ordering Facility: [facility] Address: [address] [place] [address] Performed By: #### 5 7021-8 #### [facility] CLIA [id number] [address] [place] [address] [place] WBC (Bld) [#/Vol] 5.63 10*3/uL Normal 3.70-11.00 [facility] Comment on above: Order Comment: Speci men Type: BLOOD SPECIMEN Ordering Facility: [facility] Address: [address] [place] [address] Performed By: #### 5 7021-8 #### [facility] CLIA [id number] [address] [place] [address] [place] Comprehensive metabolic 2000 panelon 05-08-2024 Albumin [Mass/Vol] 4.2 g/dL Normal 3.9-4.9 [facility] Comment on above: Order Comment: Speci men Type: BLOOD SPECIMEN Ordering Facility: [facility] Address: [address] [place] [address] Performed By: #### 2 4323-8 #### [facility] CLIA [id number] [address] [place] [address] [place] ALP [Catalytic activity/Vol] 316 U/L High 34-123 [facility] Comment on above: Order Comment: Speci men Type: BLOOD SPECIMEN Ordering Facility: [facility] Address: [address] [place] [address] Performed By: #### 2 4323-8 #### [facility] CLIA [id number] [address] [place] [address] [place] ALT [Catalytic activity/Vol] 156 U/L High 7-38 [facility] Comment on above: Order Comment: Speci men Type: BLOOD SPECIMEN Ordering Facility: [facility] Address: [address] [place] [address] Performed By: #### 2 4323-8 #### [facility] CLIA [id number] [address] [place] [address] [place] Anion gap [Moles/Vol] 11 mmol/L Normal 8-15 [facility] Comment on above: Order Comment: Speci men Type: BLOOD SPECIMEN Ordering Facility: [facility] Address: [address] [place] [id number] Performed By: #### 2 4323-8 #### [facility] CLIA [id number] [address] [place] [address] [place] AST [Catalytic activity/Vol] 116 U/L High 13-35 [facility] Comment on above: Order Comment: Speci men Type: BLOOD SPECIMEN Ordering Facility: [facility] Address: [address] [place] [id number] Performed By: #### 2 4323-8 #### [facility] CLIA [id number] [address] [place] [address] [place] Bilirubin [Mass/Vol] 1.5 mg/dL High 0.2-1.3 [facility] Comment on above: Order Comment: Speci men Type: BLOOD SPECIMEN Ordering Facility: [facility] Address: [address] [place] [id number] Performed By: #### 2 4323-8 #### [facility] CLIA [id number] [address] [place] [address] [place] Calcium [Mass/Vol] 9.9 mg/dL Normal 8.5-10.2 [facility] Comment on above: Order Comment: Speci men Type: BLOOD SPECIMEN Ordering Facility: [facility] Address: [address] [place] [id number] Performed By: #### 2 4323-8 #### [facility] CLIA [id number] [address] [place] [address] [place] Chloride [Moles/Vol] 101 mmol/L Normal 98-107 [facility] Comment on above: Order Comment: Speci men Type: BLOOD SPECIMEN Ordering Facility: [facility] Address: [address] [place] [id number] Performed By: #### 2 4323-8 #### [facility] CLIA [id number] [address] [place] [address] [place] CO2 [Moles/Vol] 25 mmol/L Normal 22-30 [facility] Comment on above: Order Comment: Speci men Type: BLOOD SPECIMEN Ordering Facility: [facility] Address: [address] [place] [address] Performed By: #### 2 4323-8 #### [facility] CLIA [id number] [address] [place] [address] [place] Creatinine [Mass/Vol] 0.62 mg/dL Normal 0.58-0.96 [facility] Comment on above: Order Comment: Speci men Type: BLOOD SPECIMEN Ordering Facility: [facility] Address: [address] [place] [address] Performed By: #### 2 4323-8 #### [facility] CLIA [id number] [address] [place] [address] [place] Creatinine and Glomerular filtration rate.predicted panel (S/P/Bld) 116 mL/min/1.73m??? Normal >=60 [facility] Comment on above: Order Comment: Speci men Type: BLOOD SPECIMEN Ordering Facility: [facility] Address: [address] [place] [address] Result Comment: Marcelina mated Glomerular Filtration Rate (eGFR) is calculated using the 2020 CKD-EPI creatinine equation. This equation utilizes serum creatinine, sex, and age as parameters. The creatinine assay has traceable calibration to isotope dilution-mass spectrometry. Refer to KDIGO guidelines for clinical interpretation. In patients with unstable renal function, e.g. those with acute kidney injury, the eGFR may not accurately reflect actual GFR. Performed By: #### 2 4323-8 #### [facility] CLIA [id number] [address] [place] [address] [place] Glucose [Mass/Vol] 75 mg/dL Normal 74-99 [facility] Comment on above: Order Comment: Speci men Type: BLOOD SPECIMEN Ordering Facility: [facility] Address: [address] [place], [place] [id number] Result Comment: The [place] Diabetes Association (ADA) provides guidance for cutoff values for fasting glucose and random glucose. The ADA defines fasting as no caloric intake for at least 8 hours. Fasting plasma glucose results between 100 to 125 mg/dL indicate increased risk for diabetes (prediabetes). Fasting plasma glucose results greater than or equal to 126 mg/dL meet the criteria for diagnosis of diabetes. In the absence of unequivocal hyperglycemia, results should be confirmed by repeat testing. In a patient with classic symptoms of hyperglycemia or hyperglycemic crisis, random plasma glucose results greater than or equal to 200 mg/dL meet the criteria for diagnosis of diabetes. Reference: Standards of Medical Care in Diabetes 2016, [place] Diabetes Association. Diabetes Care. 2016.39(Suppl 1). Performed By: #### 2 4323-8 #### [facility] CLIA [id number] [address] [place] [address] [place] Potassium [Moles/Vol] 4.8 mmol/L Normal 3.7-5.1 [facility] Comment on above: Order Comment: Speci men Type: BLOOD SPECIMEN Ordering Facility: [facility] Address: [address] [place] [address] Performed By: #### 2 4323-8 #### [facility] CLIA [id number] [address] [place] [address] [place] Protein [Mass/Vol] 7.5 g/dL Normal 6.3-8.0 [facility] Comment on above: Order Comment: Rachnai men Type: BLOOD SPECIMEN [facility] [facility] Address: [address] [place] [address] Performed By: #### 2 4323-8 #### [facility] CLIA [id number] [address] [place] [address] [place] Sodium [Moles/Vol] 137 mmol/L Normal 136-144 [facility] Comment on above: Order Comment: Speci men Type: BLOOD SPECIMEN Ordering Facility: [facility] Address: [address] [place] [address] Performed By: #### 2 4323-8 #### [facility] CLIA [id number] [address] [place] [address] [place] Urea nitrogen [Mass/Vol] 13 mg/dL Normal 7-21 [facility] Comment on above: Order Comment: Christine knutson Type: BLOOD SPECIMEN Ordering Facility: [facility] Address: [address] [place] [address] Performed By: #### 2 4323-8 #### [facility] CLIA [id number] [address] [place] [address] [place] PT panel Coag (PPP)on 2023 INR Coag (PPP) [Relative time] 1.0 {INR} Normal 0.9-1.3 [facility] Comment on above: Order Comment: Speckatalina knutson Type: BLOOD SPECIMEN Ordering Facility: [facility] Address: [address] [place] [address] Result Comment: Nereida min K Antagonist (VKA) Therapeutic Range: INR 2 to 3 (Target INR of 2.5) Note: For patients treated with VKA drugs, such as warfarin, the [employer] 2012 Guideline recommends a therapeutic INR range of 2 to 3 (target INR of 2.5). This recommendation includes high-risk patients with antiphospholipid syndrome with previous arterial or venous thromboembolism, current-generation mechanical or bioprosthetic aortic heart valve replacement. Note: Patients with mechanical aortic valve replacement and additional risk factors for thromboembolic events (atrial fibrillation, previous thromboembolism, LV dysfunction, hypercoagulable conditions) or an older generation mechanical AVR (i.e., ball in-Cage) or any mechanical MVR should have a INR therapeutic range of 2.5 to 3.5 (target INR of 3). Dianelys GH, et al. Chest 2012, 141:7S-47S Bi MARIA et al. JAC 2017, 70: 252-289 Performed By: #### 5 8410-2 #### [facility] CLIA [id number] [address] [place] [address] [place] PT Coag (PPP) [Time] 10.2 s Normal 9.7-13.0 [facility] Comment on above: Order Comment: Speci men Type: BLOOD SPECIMEN Ordering Facility: [facility] Address: [address] [place] [address] Performed By: #### 5 8410-2 #### [facility] CLIA [id number] [address] [place] [address] [facility] NURSING PROGon 05-04-2024 NURSING PROG HNO ID: [id number] Author: AURELIA FRANCO RN Service: Nursing Author Type: Registered Nurse Type: Nursing Progress Note Filed: 05/04/2024 15:23 Note Text: Pre-procedure instructions: Contacted Anmol and confirmed appt. for transjugular liver biopsy scheduled on Saturday, 05/11, at [facility]. I will wait while you get a pen and paper, if instructions are not followed your procedure may need to be cancelled or rescheduled. Diet: Do not eat solid food after midnight the night before your procedure. You may have water until your arrival time. Medications: IF ok with your Prescribing Provider: RADIOLOGY RECOMMENDS THESE MEDICATION RESTRICTIONS Take all medications as usual. Medication pumps: Insulin pumps must be removed before entering the procedure room. Do you wear Neulasta Onpro? No If yes, the device must be removed before entering the procedure room. Contrast Dye Prep: Do you have a contrast dye allergy? No Labs: Lab work needs to be drawn prior to 05/11 at any [facility]. Arrival: Please bring your Photo ID and Insurance Card. A general consent may need to be signed. Arrival at 1:30 PM to desk QB-1 ([facility]) and check in for your procedure. Sort Worker/Transportation: How will you be arriving for your procedure? Private car. If you will be arriving at [facility] via ambulance or public transportation, please call to discuss. You will need a responsible adult to accompany you to and from the procedure. Your boom truck driver is required to stay with you until you are taken into the Procedure room. If you develop any of the following symptoms before your procedure, please call [phone]. Chills, joint pain, rash, sore throat, cough, loss of smell, reddened eyes, vomiting, abdominal pains, diarrhea, loss of taste, severe headache, weakness, bruising or bleeding, fever, muscle pain, shortness of breath Recovery expectations: You can expect to be at the hospital for the majority of the day. Please do not schedule any other appointments the day of your procedure. Special concerns: Do you use CPAP or BPAP? No If you use CPAP or BiPAP, please call to discuss. Written instructions provided to patient via [employer] If you have any questions please call [phone] [facility] ANMOL GUARDADO ([id number]) 1985 F Date Time Provider Department 04/16/24 JOSE PAULINO GASTA5 During your visit today, we recorded the following information about you: Luzma Gaxiola RN 04/16/2024 2:18 PM Signed Pt sent mcm asking you to look over recent blood work Luzma Gaxiola RN April 16, 2024 2:18 PM Jose Paulino MD 04/16/2024 2:41 PM Signed Luzma, Please let her know we got lab tests to be sure it is safe to do liver biopsy. These tests are normal. She should proceed with liver biopsy scheduled in May and call me 3-4 days after for a report. Thanks MD Minor Muller Osas, RN 04/16/2024 2:53 PM Signed Patient updated Luzma Gaxiola RN Allergies As of Date: 04/16/2024 (No Known Allergies) Date Reviewed: 04/04/2021 Reviewed by: Reid Pike (Francesca) - Fully Assessed Reason for Visit: Results [95] Prescriptions as of 04/16/2024 - IBUPROFEN ORAL Take by mouth. - multivitamin with minerals (HAIR,SKIN AND NAILS ORAL) Take by mouth. Problem List As Of Date: 04/16/2024 (None) Encounter Status:Closed by LUZMA GAXIOLA on 04/16/24 Normal [facility] CBC panel Auto (Bld)on 04-13 Erythrocyte distribution width (RBC) [Ratio] 13.1 % Normal 11.5-15.0 [facility] Comment on above: Order Comment: Christine knutson Type: BLOOD SPECIMEN Ordering Facility: [facility] Address: [address] [place] [address] Performed By: #### 5 8410-2 #### [facility] CLIA [id number] [address] [place] [address] [place] Hematocrit (Bld) [Volume fraction] 40.7 % Normal 36.0-46.0 [facility] Comment on above: Order Comment: Christine knutson Type: BLOOD SPECIMEN Ordering Facility: [facility] Address: [address] [place] [address] Performed By: #### 5 8410-2 #### [facility] CLIA [id number] [address] [place] [address] [place] Hemoglobin (Bld) [Mass/Vol] 13.6 g/dL Normal 11.5-15.5 [facility] Comment on above: Order Comment: Christine knutson Type: BLOOD SPECIMEN Ordering Facility: [facility] Address: [address] [place] [address] Performed By: #### 5 8410-2 #### [facility] CLIA [id number] [address] [place] [address] [place] MCH (RBC) [Entitic mass] 33.3 pg Normal 26.0-34.0 [facility] Comment on above: Order Comment: Speci men Type: BLOOD SPECIMEN Ordering Facility: [facility] Address: [address] [place] [address] Performed By: #### 5 8410-2 #### [facility] CLIA [id number] [address] [place] [address] [place] MCHC (RBC) [Mass/Vol] 33.4 g/dL Normal 30.5-36.0 [facility] Comment on above: Order Comment: Speci men Type: BLOOD SPECIMEN Ordering Facility: [facility] Address: [address] [place] [address] Performed By: #### 5 8410-2 #### [facility] CLIA [id number] [address] [place] [address] [place] MCV (RBC) [Entitic vol] 99.5 fL Normal 80.0-100.0 [facility] Comment on above: Order Comment: Speci men Type: BLOOD SPECIMEN Ordering Facility: [facility] Address: [address] [place] [address] Performed By: #### 5 8410-2 #### [facility] CLIA [id number] [address] [place] [address] [place] Nucleated RBC (Bld) [#/Vol] 10*3/uL Normal <0.01 [facility] Comment on above: Order Comment: Speci men Type: BLOOD SPECIMEN Ordering Facility: [facility] Address: [address] [place] [address] Performed By: #### 5 8410-2 #### [facility] CLIA [id number] [address] [place] [address] [place] Platelet mean volume (Bld) [Entitic vol] 11.9 fL Normal 9.0-12.7 [facility] Comment on above: Order Comment: Speci men Type: BLOOD SPECIMEN Ordering Facility: [facility] Address: [address] [place] [address] Performed By: #### 5 8410-2 #### [facility] CLIA [id number] [address] [place] [address] [place] Platelets (Bld) [#/Vol] 294 10*3/uL Normal 150-400 [facility] Comment on above: Order Comment: Speci men Type: BLOOD SPECIMEN Ordering Facility: [facility] Address: [address] [place] [address] Performed By: #### 5 8410-2 #### [facility] CLIA [id number] [address] [place] [address] [place] RBC (Bld) [#/Vol] 4.09 10*6/uL Normal 3.90-5.20 [facility] Comment on above: Order Comment: Speci men Type: BLOOD SPECIMEN Ordering Facility: [facility] Address: [address] [place] [address] Performed By: #### 5 8410-2 #### [facility] CLIA [id number] [address] [place] [address] [place] WBC (Bld) [#/Vol] 5.20 10*3/uL Normal 3.70-11.00 [facility] Comment on above: Order Comment: Speci men Type: BLOOD SPECIMEN Ordering Facility: [facility] Address: [address] [place] [address] Performed By: #### 5 8410-2 #### [facility] CLIA [id number] [address] [place] [address] [place] [facility] PT PNL PPPon 04-13-2024 [facility] INR PPP 1 0.9 - 1.3 [facility] Comment on above: Vitamin K Antagonist (VKA) Therapeutic Range: INR 2 to 3 (Target INR of 2.5) Note: For patients treated with VKA drugs, such as warfarin, the [employer] 2012 Guideline recommends a therapeutic INR range of 2 to 3 (target INR of 2.5). This recommendation includes high-risk patients with antiphospholipid syndrome with previous arterial or venous thromboembolism, current-generation mechanical or bioprosthetic aortic heart valve replacement. Note: Patients with mechanical aortic valve replacement and additional risk factors for thromboembolic events (atrial fibrillation, previous thromboembolism, LV dysfunction, hypercoagulable conditions) or an older generation mechanical AVR (i.e., ball in-Cage) or any mechanical MVR should have a INR therapeutic range of 2.5 to 3.5 (target INR of 3). dinesh Berg. Chest 2012, 141:7S-47S Bi MARIA et al. [facility] 2017, 70: 252-289 [facility] PROTHROMBIN TIME 10.2 [facility] Specimen Type: BLOOD SPECIMEN Ordering Facility: [facility] Address: [address] [place] [address] Original Ordering Provider: JOSE SHAW [facility] PT panel Coag (PPP)on 2023 INR Coag (PPP) [Relative time] 1.0 {INR} Normal 0.9-1.3 [facility] Comment on above: Order Comment: Speci men Type: BLOOD SPECIMEN Ordering Facility: [facility] Address: [address] [place] [address] Result Comment: Nereida min K Antagonist (VKA) Therapeutic Range: INR 2 to 3 (Target INR of 2.5) Note: For patients treated with VKA drugs, such as warfarin, the [employer] 2012 Guideline recommends a therapeutic INR range of 2 to 3 (target INR of 2.5). This recommendation includes high-risk patients with antiphospholipid syndrome with previous arterial or venous thromboembolism, current-generation mechanical or bioprosthetic aortic heart valve replacement. Note: Patients with mechanical aortic valve replacement and additional risk factors for thromboembolic events (atrial fibrillation, previous thromboembolism, LV dysfunction, hypercoagulable conditions) or an older generation mechanical AVR (i.e., ball in-Cage) or any mechanical MVR should have a INR therapeutic range of 2.5 to 3.5 (target INR of 3). dinesh Berg. Chest 2012, 141:7S-47S dinesh Pat RA. [facility] 2017, 70: 252-289 Performed By: #### 3 4528-0 #### [facility] CLIA [id number] [address] [place] [address] [place] PT Coag (PPP) [Time] 10.2 s Normal 9.7-13.0 [facility] Comment on above: Order Comment: Speci men Type: BLOOD SPECIMEN Ordering Facility: [facility] Address: [address] [place] [address] Performed By: #### 3 4528-0 #### [facility] CLIA [id number] [address] [place] [address] [place] A1 Antitrypsin Phenoon 02-06 A1 Antitryp Phenotype M1M1 Normal [facility] Comment on above: Result Comment: (NOT E) The patient appears to have a normal phenotype. All M alleles (including subtypes M1, M2, and M3) produce normal serum concentrations of dakhy-2-erisjrjg inhibitor and are not associated with clinical disease. Caution in interpretation is advised if the patient has been transfused within the previous 21 days. Performed By: [facility] [address] [place] [address] Table Cover Folder: Wicho Williamson MD, PhD CLIA Number: [id number] Performed By: #### H BS, AHAVM, ABC, AHBS, ANASCN, AMAB, ABCM, AHCV, AHAVT, CELP, CER #### [employer] [address] [place] [address] Medical Cost Consultant: Evan Talavera MD #### AASMF, AATRPH #### [facility] [address] [place] [address] Medical Cost Consultant: Bernard Vanegas MD A1 Antitrypsin 180 mg/dL Normal 90-200 [facility] Comment on above: Result Comment: To c onvert to umol/L, multiply mg/dL by 0.185 Performed By: #### H BS, AHAVM, ABC, AHBS, ANASCN, AMAB, ABCM, AHCV, AHAVT, CELP, CER #### [employer] [address] [place] [address] [phone] Medical Cost Consultant: Evan Talavera MD #### AVRIL, AATRPH #### [facility] [address] [place], [place] [id number] Medical Cost Consultant: Bernard Vanegas MD SUSAN Screenon 02-06-2024 SUSAN Screen Positive Abnormal NEG [facility] Comment on above: Performed By: #### H BS, AHAVM, ABC, AHBS, ANASCN, AMAB, ABCM, AHCV, AHAVT, CELP, CER #### [address] [id number] Medical Cost Consultant: Evan Talavera MD #### AVRIL, AATRPH #### [facility] [address] [place], [place] [id number] Medical Cost Consultant: Bernard Vanegas MD Anti-dsDNA 7.7 IU/mL Normal <10.0 [facility] Comment on above: Result Comment: Reference Range: <10.0 Negative 10.0-15.0 Equivocal >15.0 Positive Performed By: #### H BS, AHAVM, ABC, AHBS, ANASCN, AMAB, ABCM, AHCV, AHAVT, CELP, CER #### [address] [phone] Medical Cost Consultant: Evan Talavera MD #### AVRIL, AATRP #### [address] [id number] Medical Cost Consultant: Bernard Vanegas MD MAIRA Screen 3.7 U/mL High <0.7 [facility] Comment on above: Result Comment: Reference Range: <0.7 Negative 0.7-1.0 Equivocal >1.0 Positive MAIRA Screen includes U1RNP,RNP70,Sm,Ro(SS-A),La(SS-B),CENP,Scl-70,Anastacia-1 Performed By: #### H BS, AHAVM, ABC, AHBS, ANASCN, AMAB, ABCM, AHCV, AHAVT, CELP, CER #### [employer] [address] [place], [place] [id number] Medical Cost Consultant: Evan Talavera MD #### AVRIL, AATRPH #### [facility] [address] [place], [place] [phone] Medical Cost Consultant: Bernard Vanegas MD Celiac Disease Panelon 02-05 Gliadin Deam Pep IgG 14.0 U/mL High <7.0 [facility] Comment on above: Result Comment: CELIAC INTERPRETATION <7.0 Negative 7.0-10.0 Equivocal >10.0 Positive units: U/mL Performed By: #### H BS, AHAVM, ABC, AHBS, ANASCN, AMAB, ABCM, AHCV, AHAVT, CELP, CER #### [employer] [address] [place] [address] [phone] Medical Cost Consultant: Evan Talavera MD #### AVRIL, AATMAURY #### [facility] [address] [place] [address] Medical Cost Consultant: Bernard Vanegas MD Smooth Muscle Abon Smooth Muscle Ab 17 Units Normal 0-19 [facility] Comment on above: Result Comment: (NOT E) If F-Actin (Smooth Muscle) Antibody, IgG is negative, the Smooth Muscle Antibody titer by IFA is not performed. REFERENCE INTERVAL: F-Actin (Smooth Muscle) Antibody, IgG by DARLYN 19 Units or less ....... Negative 20 - 30 Units .......... Weak Positive-Suggest repeat testing in two to three weeks with fresh specimen. 31 Units or greater..... Positive-Suggestive of autoimmune hepatitis type 1 or chronic active hepatitis. F-actin IgG antibodies have been shown to have increased sensitivity for autoimmune hepatitis (AIH) but lower specificity than smooth muscle antibodies (SMA). F-actin IgG antibodies can also be seen in SMA-negative disease controls (non-AIH), especially in patients with primary biliary cirrhosis and chronic hepatitis C infections. Some patients with AIH may be SMA-positive but negative for F-actin IgG. Consider testing for SMA by IFA if suspicion for AIH is strong. Performed By: [place] [address] Table Cover Folder: Wicho Williamson MD, PhD CLIA Number: [id number] Performed By: #### H BS, AHAVM, ABC, AHBS, ANASCN, AMAB, ABCM, AHCV, AHAVT, CELP, CER #### [address] [address] Medical Cost Consultant: Evan Talavera MD #### AVRIL, AATRPH #### [facility] [address] [place], [place] [id number] Medical Cost Consultant: Bernard Vanegas MD Anti-Mitochondrial Abon Anti-Mitochondrial Ab 67.0 U/mL High 0.0-4.0 [facility] Comment on above: Result Comment: Reference Range: <4.0 Negative 4.0-6.0 Equivocal >6.0 Positive When results are Equivocal, it is recommended to retest after 8-12 weeks. Performed By: #### H BS, AHAVM, ABC, AHBS, ANASCN, AMAB, ABCM, AHCV, AHAVT, CELP, CER #### [address] [phone] Medical Cost Consultant: Evan Talavera MD #### AVRIL, AATRPH #### [facility] [address] [place] [address] Medical Cost Consultant: Bernard Vanegas MD Celiac Disease Panelon 02-04 Gliadin Deam Pep IgA 121.0 U/mL High <7.0 [facility] Comment on above: Result Comment: CELIAC INTERPRETATION <7.0 Negative 7.0-10.0 Equivocal >10.0 Positive units: U/mL Performed By: #### H BS, AHAVM, ABC, AHBS, ANASCN, AMAB, ABCM, AHCV, AHAVT, CELP, CER #### [address] [phone] Medical Cost Consultant: Evan Talavera MD #### AASMF, AATRPH #### [facility] [address] [place], [place] [phone] Medical Cost Consultant: Bernard Vanegas MD Tiss Transglutam IgA 0.5 U/mL Normal <7.0 [facility] Comment on above: Result Comment: CELIAC INTERPRETATION <7.0 Negative 7.0-10.0 Equivocal >10.0 Positive units: U/mL Performed By: #### H BS, AHAVM, ABC, AHBS, ANASCN, AMAB, ABCM, AHCV, AHAVT, CELP, CER #### [facility] [address] [place] [address] [phone] Medical Cost Consultant: Evan Talavera MD #### ROBERTMF, AATRPH #### [facility] [address] [place], [place] [phone] Medical Cost Consultant: Bernard Vanegas MD Celiac Disease Panelon 02-03 IgA [Mass/Vol] 308 mg/dL Normal 70-400 [facility] Comment on above: Performed By: #### H BS, AHAVM, ABC, AHBS, ANASCN, AMAB, ABCM, AHCV, AHAVT, CELP, CER #### [facility] [address] [place] [phone] Medical Cost Consultant: Evan Talavera MD #### AVRIL, AATRPH #### [facility] [address] [place], [place] [phone] Medical Cost Consultant: Bernard Vanegas MD Ceruloplasminon 02-04-2024 Ceruloplasmin 28 mg/dL Normal 16-45 [facility] Comment on above: Performed By: #### H BS, AHAVM, ABC, AHBS, ANASCN, AMAB, ABCM, AHCV, AHAVT, CELP, CER #### [facility] [address] [place] [address] [phone] Medical Cost Consultant: Evan Talavera MD #### AASMF, AATRPH #### [facility] [address] [place] [address] Medical Cost Consultant: Bernard Vanegas MD Hep A Abon 02-04-2024 Hep A Ab,Total Reactive Abnormal NR [facility] Comment on above: Performed By: #### H BS, AHAVM, ABC, AHBS, ANASCN, AMAB, ABCM, AHCV, AHAVT, CELP, CER #### [facility] [address] [place] [phone] Medical Cost Consultant: Evan Talavera MD #### AVRIL, AATRPH #### [facility] [address] [place] [address] Medical Cost Consultant: Bernard Vanegas MD Hep A Ab,IgMon 02-04-2024 Hep A Ab,IgM Non-Reactive Normal NR [facility] Comment on above: Performed By: #### H BS, AHAVM, ABC, AHBS, ANASCN, AMAB, ABCM, AHCV, AHAVT, CELP, CER #### [address] [address] Medical Cost Consultant: Evan Talavera MD #### AVRIL, AATRPH #### [facility] [address] [place] [address] Medical Cost Consultant: Bernard Vanegas MD Hep B Core Abon 02-04-2024 Hep B Core Ab Non-Reactive Normal NR [facility] Comment on above: Performed By: #### H BS, AHAVM, ABC, AHBS, ANASCN, AMAB, ABCM, AHCV, AHAVT, CELP, CER #### [address] [address] Medical Cost Consultant: Evan Talavera MD #### AASMF, AATRPH #### [facility] [address] [place] [address] Medical Cost Consultant: Bernard Vanegas MD Hep B Core Ab,IgMon 08-06-20 24 Hep B Core Ab,IgM Non-Reactive Normal NR [facility] Comment on above: Performed By: #### H BS, AHAVM, ABC, AHBS, ANASCN, AMAB, ABCM, AHCV, AHAVT, CELP, CER #### [address] [address] Medical Cost Consultant: Evan Talavera MD #### AVRIL AATRPH #### [facility] [address] [place], [place] [id number] Medical Cost Consultant: Bernard Vanegas MD Hep B Surf Abon 02-04-2024 Hep B Surf Ab <3.50 Normal <10 [facility] Comment on above: Result Comment: REFERENCE RANGE: <10.0 NON-REACTIVE/NOT IMMUNE >=10.0 REACTIVE/IMMUNE Performed By: #### H BS, AHAVM, ABC, AHBS, ANASCN, AMAB, ABCM, AHCV, AHAVT, CELP, CER #### [address] [address] Medical Cost Consultant: Evan Talavera MD #### AVRIL AATRPH #### [address] [address] Medical Cost Consultant: Bernard Vanegas MD Hep B Surf Agon 02-04-2024 Hep B Surf Ag Non-Reactive Normal [facility] Comment on above: Performed By: #### H BS, AHAVM, ABC, AHBS, ANASCN, AMAB, ABCM, AHCV, AHAVT, CELP, CER #### [address] [address] Medical Cost Consultant: Evan Talavera MD #### AVRIL, AATRPH #### [facility] [address] [place], [place] [phone] Medical Cost Consultant: Bernard Vanegas MD Hep C Abon 02-04-2024 Hep C Ab Non-Reactive Normal [facility] Comment on above: Result Comment: The hepatitis C procedure used in our laboratory is a Chemiluminescent test specific for three recombinant HCV antigens. A negative anti-HCV result indicates that the antibodies to hepatitis C virus are not present at this time. Individuals with reactive anti-HCV should be considered infected and infectious until proven otherwise. Confirmation of all equivocal or reactive results is recommended by ordering HCV RNA by PCR. Performed By: #### H BS, AHAVM, ABC, AHBS, ANASCN, AMAB, ABCM, AHCV, AHAVT, CELP, CER #### [employer] [facility] [address] [place] [address] Medical Cost Consultant: Evan Talavera MD #### [facility], [facility] #### [facility] [address] [place] [address] Medical Cost Consultant: Bernard Vanegas MD LIVERon 02-04-2024 US LIVER EXAMINATION: LIVER ELASTOGRAPHY ULTRASOUND; ULTRASOUND OF THE LIVER 02/04/2024 8:16 am TECHNIQUE: Liver stiffness measurements were obtained on a [employer] E9 unit with a C1-6-D transducer. 11 valid measurements were obtained using a 2D shear wave elastography method. COMPARISON: None HISTORY: ORDERING SYSTEM PROVIDED HISTORY: Elevated liver enzymes TECHNOLOGIST PROVIDED HISTORY: elevated LFT FINDINGS: LIVER: Mild enlargement of the right hemiliver potentially due to hepatomegaly or a normal variant Brian's lobe. Normal echogenicity. Mildly coarsened echotexture. No obvious surface nodularity nor focal lesions. Median stiffness: 10.16 kPa IQR:median ratio (IQR/M, results unreliable if >0.30): 0.24 BILIARY SYSTEM: Normal gallbladder. No reported right upper quadrant pain during examination. No intrahepatic biliary dilation. Normal common duct, measuring 0.5 cm. PANCREAS: Visualized portions with normal echogenicity. RIGHT KIDNEY: Normal size, echogenicity, and parenchymal thickness. No hydronephrosis. OTHER: Patent main portal vein with normal directional flow. No visualized free intraperitoneal fluid. IMPRESSION: 1. Coarsened liver echotexture suggesting underlying hepatocellular disease with no overt findings steatosis or cirrhosis. 2. Liver stiffness of 10.16 kPa, correlating with a Metavir score of F3 (severe fibrosis, 9.40-11.9 kPa). Interpreted by: Talon Dowd MD Signed by: Talon Dowd MD 02/04/24 Final result Normal [facility] US ORGAN ELASTOGRAPHYon 08-0 US ORGAN ELASTOGRAPHY EXAMINATION: LIVER ELASTOGRAPHY ULTRASOUND; ULTRASOUND OF THE LIVER 02/04/2024 8:16 am TECHNIQUE: Liver stiffness measurements were obtained on a [employer] E9 unit with a C1-6-D transducer. 11 valid measurements were obtained using a 2D shear wave elastography method. COMPARISON: None HISTORY: ORDERING SYSTEM PROVIDED HISTORY: Elevated liver enzymes TECHNOLOGIST PROVIDED HISTORY: elevated LFT FINDINGS: LIVER: Mild enlargement of the right hemiliver potentially due to hepatomegaly or a normal variant Brian's lobe. Normal echogenicity. Mildly coarsened echotexture. No obvious surface nodularity nor focal lesions. Median stiffness: 10.16 kPa IQR:median ratio (IQR/M, results unreliable if >0.30): 0.24 BILIARY SYSTEM: Normal gallbladder. No reported right upper quadrant pain during examination. No intrahepatic biliary dilation. Normal common duct, measuring 0.5 cm. PANCREAS: Visualized portions with normal echogenicity. RIGHT KIDNEY: Normal size, echogenicity, and parenchymal thickness. No hydronephrosis. OTHER: Patent main portal vein with normal directional flow. No visualized free intraperitoneal fluid. IMPRESSION: 1. Coarsened liver echotexture suggesting underlying hepatocellular disease with no overt findings steatosis or cirrhosis. 2. Liver stiffness of 10.16 kPa, correlating with a Metavir score of F3 (severe fibrosis, 9.40-11.9 kPa). Interpreted by: Talon Dowd MD Signed by: Talon Dowd MD 02/04/24 Final result Normal [facility] Coding Summary.on 03-20-2022 Coding Summary. CD:[id number] Gh0bWw+P GhlYWQ+PE2KWKUzI68fjGWyfW0SA 6dONL2UAMJJDCANOP1ZBP3bcVJ1N YwdJ3AcmdMb NjcseOJnKJ35QQf6UMC1cJxuNChr rT5kvGXgD6q0ObInKZ15bF41UOsh ZHOvJzT2PhGggklbtRMb V6beAtOhyDMxOco+PHRhYmxlIHdp VROcDSiqYEXuChGwgKcsUL0pNc9h ZGVyLWNvbGxhcHNlOiBj s3kuKJDsGUzdRC1ykHstK2UkbEL5 TKRwn0u2Rc15mYG+QAEqDQV9fFug JJmbc348BrRmb8bfNJD1 pAUxKZrbWRR3P52ip3A2CARpVKHu JED4vOQ5kI5lvPqsdbzgM4HkvIAb McR1UYL0yEVmfI3goJhs ogxrqU0nHjb+F91EJX9FONISSN7S Stq8S1FiJnhnsUZ+XT87HOEmNY91 vPNomRQpr2ctvZl0TuHh GJRgUYX1aQpmAQccy6JoQHBoQ12i qWFnz5V9PJWbmSadxJIuKeDbvSD8 dR8pXWpviypaq4dojzny Sfaup0eyjv01qH08W24bELfgPXSj QEH8TFKnPUQssWgeyi3icR0oKz9+ SHleb7fhs5uweUo0VaSo WOFwdlRmgKhpNUY2f1NaJf44N0Ck mSbkx9TdJjx0hp91qAGbt5I4mTN8 SUqaYAMioR8iAOcgJiE5 RYVmWtGeyW78mCTjVJqhBk3dnHig wEsaHQ9yHMZbhoexHLTycQ1pUMLc hUYbjXkyFD2lFWGutvyr c683SsRhZSE4PRHnsFYxN6OryY3u CaPmTXMgHMGqH7EflSSdHYjcZ067 KPsgQqL6LYGlljWhK9Lv KTCdbAtuJzJ0z9S7To0Yi6Cdaoxa XLX6WOsvZJY7IjQnIhHpJnI8V1Es Lhy2QYKbaSuvNT5yM8Ej IAZgzybchaogoZK1GZPrIDGbqQ70 mHNkGCejJz3zq5H6d746RKRjCRTh oJ45Bh0jmHfdIDQqsBYU mJ7jajqsc8iuzbxeMfOlBOTbGKh5 GZi6REFgiVehUaFvWHL9SdP7RIH8 yQUmbG8qtQpmafzntX8u Oyc+R50kyK9pBZV5JXF9qvnaBFQv lrRjGH51QF86P9CfFigatKGawBQ+ DRSntkVzmAruXK3xIdKx o0xbd6OkGGioV3SbAGGjGAafTuw3 XPGgRLL6uZC5nA0xGRVqDXoay0U9 cFF0S8FhywTkzx6vd6em YMGrMOleG88cxQWlx4B7CCFbdAN5 ENIreIkyUnUhpW05Jvm+PGNvbGdy f3XtSqgjb1fag8fuyPs3 FmBiEDKoipWbzVkiOLC6u0WlWb07 I58tBNrpOWAaHWMkHWNxREPxqQlb kr4osC4oUi0+PGNvbCB3 nMD0hS5dQLCzPeL0TLrkG058NcKi aLAfKdhcp4zav1xuwPk2TwQqNUUw tmTvgWoaTGG5h0QkSj14 T00xZNpkCUMcLWJhDBJmNPGcgTou qs9wnS0rSn1+YD1mw3nofh49bS36 dHI+KQLiZAP0uAdjFWep CWKcvY7oAIdjRyU3UEXfUuEoqO84 kRDlZVwcGl4ynUyehQjnGX5pIOIf uasbs824RkBws1qrOQEg nNKhGTvhOGB0R47mo4K5QHDiGCBn GUI0pUL7vF4eaUwargeumYCmaDum abVbfNruDProRQuwC042 IHRvcDsnPlBhdGllbnQgTmFtZTo8 B3GbDln0GUTgqFrhBF6ehEXiZPtw Pz1okNnzkYyoMJ5dMPTu dpvle342LeLce1vgZLEvtTIhZBma OZR5A19kj1L8INHtYZJqVNP9uTJ2 vZ8jwXeqcvbftFBcnTex apVigJipAWzkAFbxX726YLViuHba SdKzqqTrBGGmbQL6XX77GY71zMGe x5U7tON3D9GiLPUfegvf grloqXB2NFSvKJGpuD52Wa6xyOcg It7iEVCsESP8QPCimTQiY4TgyF2o JtUdMNNkZFAuH9CjwGFl KTggR295UZrmNvL0WPUhsmLsA4Mz XATraFprVhR9i3G7Yz7GD6W6OC76 PV31oHXxi2U9tBK7R9Qb WROuvukiwtyyyEQ1ZBHmESVykN62 Yb0dxNxnCs8iWCQwCOV2ASLjjZEs Y8OwoQ9sUcAdYDFfGCKn F0VrnIWvCHfaO493RLxwNzN3CHBv lkSwG4MmKKDmkYjbLxM8e6X0Zp3H BDf1ZW63ZQ58uNJqp9C2 gHH6N7OvFUOibcacbxpkxKK1YHKc MUFtmF31Hl8spTcrZv0sZPVlJSO2 PNUbqZKlX8OyqW7hRyHa GJYwBLBnN6MtcRAqNJukY907JFqk NoZ8ZYYjvtRpC7SxXKCzoVkzScJ8 q4V5Sc6GGKWdNM33ONW1 nAW4XO42QC94C9DlLalylHNqkQS+ PHRhYmxlIHdpZHRoPScxMDAlJyBz yYasKS9zXq9aECYyYWFt yThzaUHsXdTfp7ixKLShWEhqBY4m kKrgG1ChaMK5UCLmf1d5Pn57F88q G6YvbKS+NGSwgWN3zME9 fZ7eXfSzQwI9CDuzR365JrRosOEq Wccuh6yhb2zsaBx3ZpN3FKSqowXd lXthLVX6c1KnSg09L50v KQamVOMbTNOaCDYbEUCptRrbhj8k wH5wEn9+DVLjrMQ3yHB7rF6yFzWa BkD9UFeaI041GhMcpJOy Swrff3kxn2oqhGp2EmDuWOZmkoSm wWejRPB3f8CwYw02Y0LrbCanp2Pg Zor8hh38sQZtz7J7pEK0 G7EtPBAkzncmeRXlfOcpOD7wWUBa krcrFHFuaE8jTCBzQ2o5JtQaTgN6 NEmnQ2OmctX3DBBseXMi NVdqXDS2C95ih5N4ZFAhSBUaTJL4 oKX1oI9vkXzgmktacOTclJtfcsRf kUwcQJzhEYtnZ156HHXe kGzsOBVfxU5jBNEzsFEgyVvzAH4z NTBpbjsnPkhPTExJREFZLCBSRUJF K5ZCWOk3D9MkSfw2BVMe bGnqHK3fhWVeYVknXf7ypVjwzFru QY1iDXJfjjegMWLnfU5oQSYswZEd mGtwBN1rINXyliboz153 VnDrEON5XEJiuZKxE6OjvH3eKmAw JLGaBLEwB4KioSJtACxsQ779HVuj XnU0KOZzbyAaH5GnNSJu zTatEnY2q5L9Hv2kVc6nTs9wFMf3 IZ12ZH34uBEuy7Y7zTY9K1YxHXAo zwffjhvvkNK4DAFdLTTj rX61oMJgWKjsIi8nu3J0u751ECCn DEZjaR72Og6inDtmOTKlxLYYjI1z onssy1ljiaufAjJjVVUo FUj7TJx4VPMceCpaXyRrZIN2ZiK2 UJG3zQTnlA2ebBzqgtupiJ5qVlg+ ZacsGMWtzbP1Q5ZdYpe3 QCRuzGdhYK6xvGOrJZcdAk3kmWfc xOrfCM1vOJHywhncIXKofW3mWKWk jTAfnQkkMY7qCBWipowm d905ViPaFDS6WZQnaYBhV6EczE9u PuHfUJZaLLQvS2VzdOWmTWzqF165 VQksHrH2YTToyrWhZ9Vm VNXfhUuoYsY9b7M6Hb8NVN3kvUZ3 T3PpWbb8ELVtuYxoJJ0rvRWcZUde Ss3uyZpftZmqSH7nLTPn onggIJXygJ8sJMQyzDCxbEkpXB4b LMNxttjfx143IyScQOK3XNRppPIl F2WubG1fOjEtGJIzTBGz X8YxrGOhEMavO014SBtdSjA1AVBo piPvO7JaRGEgeAlpTlN9b2I2Mf3A kVNyZPMdIC07QM34RJ69 E1HlIehmdBBfzPH+PHRhYmxlIHdp LOMbPSgiOMKgRnJzsRpjSD3qBe4b ZGVyLWNvbGxhcHNlOiBj q6pjCDHdMZirMW9sjIlpX7WszPU3 BZFfh7a8Ga70Q60eR0CggHZ+PGNv gRO7hOS6sK8kQgTqGjT0 BQcyS098KmKjgOBcTamat4ifa6ux oGd7JcJpBXTaedWjpPizLZX8i9Qi Ne04X20pWQozNMHnSIWq KLHjBPWmxLnujl2cuL4bJe1+PGNv dTO8jHE0jP3bItYsXnO1HAcsS213 XkPcbKEaUgtsB57xH2Ui dXA+GSIlVzl7YPEqnZleVH3qpVWk OMsfTk9nNFC9ReCvVjMqXDnlZ7Je EFLoofobrbkafHE1IQYc RDAmzS88Qu8hgAmaIn4uDLBbIVL6 IOKpwDSeN2IitZ3iYgOiKJAhFCVx I5YhmAAaBJknU721NPcx WmA3UHCyzyBxQ4BrBZUzqEmhHhC7 y3D7Tv0MvZvccTWyQO6oTrRjLNk5 A9XaThi1VXLyqQjnHD9t uUCzNPfwKm4ewHbgqWisDZ0oFRVx eytld828UlPnc6jfKHFqxUJeQZrd UEM7B46wy0L8JLYuZFPx TLO8fKY3yD9ssUicawhtlUHyyEie iiIyiKbfLGdqYUgpI420FLIhoFjk LxAUVhw3K8FlBsx0ILIs oXuxNP8gaSAmHJxrNk0toUrgjCzf BO8yQMPtnmgmx285SsBkn8xiJUZv zWJtTTqvKPV9U18fj1U3 YHUzDCYyZZO2qNI2eC3vyTtjnmlh wRSpdXuewlWreQwyBFljUDqxM135 ADYxlJppTc1XZpi3Z3Hi Bzy1DKCkjQbfKN6ntQBtMMnaCr2m vDtzbJnsHI3fLCPgyyrwg925WeBb j5qsANRwgYFmSGwoNMX8 K42cq6S4TRSbYHDfOIE7rGR7uA0d bGlnbjogbGVmdDsgdmVydGljYWwt HIclN840JGXgvIbrMqEz eWVyOjwvdGQ+CO82rk31N1RsXzim Fhs7TFJzLDD3oLY4yW1xEAMiZKiu d2U1lRS5U7QcosLkgq3y b2xs (more content not included)... Normal [facility] Consent for Treatmenton 03-01 Consent for Treatment [id number]:127 Normal [facility] Coding Summary.on 02-09-2022 Coding Summary. CD:[id number] Gh0bWw+P GhlYWQ+OD6JEEWdC03hjTOnwT0UE 9zLPF2EKLUNVXUKOH5PXC1piMU7R NgrE8PacpBl YggkdBDyUQ04ZUv7CAH1rIucIAid iZ9ybENcA2r0GaZrVX69qM48SWac KHGjOmC3RuXlftvzlYOj V3lqUmHtlBLtMtg+PHRhYmxlIHdp FYBpPBxqXQGtOsOucVujMV6fQk0z ZGVyLWNvbGxhcHNlOiBj x5quJFNxCDcdLQ1jpPilR1UahCZ2 YMEwf0o5Vy86eXB+GGWsERU3aIoa GYess287HxFed7ieAGS1 cDMkRGetNNY3J44cz2X2WELnAVAl PEQ1yNX8aW1ruEgjzzhmN7YvcEKk PsV7IID6zXTkmZ6jiOsq zppkwY9aNlt+C22FJW3FUJPAND5B Wvv0Q0VuMblarJP+DE88WDTjSS96 iEBquXBgo1smaRm8EiSr BZZmJQR8dZhzHOaiu9RxNEEvC42p pNAuo0Q4AOQprJzrjJFiPwEzaXT9 pY8pIEftsgysk1ojedpd Nnqcg9zrzl01eD57G30iBTdvFMRq BCS1RTNuACAdvZrjdx0doI1hAg7+ TRsps9xhd4umxAs8ImPq FQYqbrKnjNipCQO2e8PzKa23T6Zq eZzkz7WgWdy0ia91jKFzu6O9eET5 QQxaXUZrhB8qIHxpVqT0 EQJiJkSigU63tBKaRJevIy4yiIrm vIeeKS5qCJKifsatDGKhbV9nNIZh yTPffTqyWC1sNGVcwyfn s494GxPfKZW4JGHxkWNpC5HzoV5x CoXoKYYgEDHdX7UbgQVqLGwmH544 WVsqZeX4XYVsomUiB3Mh RXIogYuqXpW7l8L0Qz9Mf6Tpcsil WFC6JJmrPQB1IyAaHsLdTbE9W6Fn Dna9GBJxoTjcQS8aZ9Ri QHVfkyseeyolxRL0YXPaDNRbnT34 aGWoKEgyYt6ye3W9p490OOMvXTTj jI13Sd1oqBmkZDLekJBT cI4mvfcyr0oituepOsCnKXJgMBm8 FIo0BMHhcDfmIbUkJPH2OzU9BJQ1 vOCvxP5cfMirkdglrF9q Oyc+W85yhK7hJLV2ABM9ayvoFHUi bkBeMN00PY24M6LwPksgsHMgbCT+ VXWqxaEwiCquLD4dVdXg z6rys1ZhRQxqN0RyHNHgKGyeYmo1 NQAuHLM2dCL9uU1eIAMxQPssc9W6 tTO5H7InykAstm4fb4vk AGCxOWspQ17dcPAwl2I7MHQmnIH4 JFVpdNbmAmXhuY70Wfx+PGNvbGdy z0QjSbdqh3hmw0obzMo9 CbWuYDFsacPfmBcbWYQ0g0WwOs28 L29hYZvbGXRwMXQnLRCwKDSgqRkv xy8gfU2kUv9+PGNvbCB3 mAH4lG8vYFFmJnR4KGqqP197IgYx pZDxCywxi6xmu6brbFj7IdIcPVQr plIunDtjLXM3z1UnLg57 W97wGWmdYXIlNEFbLILeYLYudHyd iq4ohT2xVt5+GN5kz9ytgk93rN35 dHI+THLwGMG1iZeyQMpl CQYezJ9pHTkcErK9YXXxWkKwcW25 jNTkJKxaWi8zzMfyyCcfBZ2tVQDw qmxfo002YnRla5srYMSw gYGpFNggCTD4G12ks4C2QIDvTZOs LUL2pCC8lD8gxOzmlluweEAwkMmk blIutYwkOCxmRJoiH458 IHRvcDsnPlBhdGllbnQgTmFtZTo8 S6UqBca0ZLRzpXfjWQ3xaDHsZHks Vh5zqGgztQskKM1dJUVh kpyfx438IeZgc8czRBGyzKFpRTlp HRB6X01pb5O7RUAsRMZmSMM4zSV6 bG5umIpjiimqjJVwqEtg toCqrQdeKZjrAAokY178LYTbsGtw TyYwtuTcLECqaKR3JZ46FS62qDDm o2B8vNX4Q0OkNLOukwhx jznrnIV5CIAxYSNznJ80Ol0frGmw Qd3lULTqRYQ2ETVnaRXcL6XuvF5s OhOfXHUqMQYzY5NgqFTr SOdnM427EYocTqZ5XPHmfrTcM6Bf GSLnxUerPtG4c0Q0Xu2XM4I1PO83 JX66tWKxh2D4xGB7I4Qk SKOjakcfuigrcTS3DWJxZIErwT55 Yd4ddYwePb5aMQIfXWU5YSRdjRAj P8MnsZ9rDtMhBOWgKFFe D0ZtyEOeMFprN746NEnhBlT2RHMq voOoE9GqYPTqnWzqXeD2d4T8Oi4O ZLl2MT27WS53sWOrk5B5 hER6C6DfKQPjbceobdmdlPZ5GCJy RQOhdG78Te9ylLwdRk4hRYTpEEK3 DEShaSQuA8AcsG2dZhWr TSPcRVKgH5YwtVLuSGqhU858JEax JyX1NHPmiiAaL3ElJEWsuWrtFsB2 x4J8Xu0XJUVaBZ80YFQ3 pNH1NH62MX49Q9HjNaysdGXdoNX+ PHRhYmxlIHdpZHRoPScxMDAlJyBz mNipLI6bSh5yYINmMLXv pHlbuHGqRjLry9ulEMOkCMlrUE5p kQloX2XblAF7SAIap5a2Lu38X91q D9CbcKH+VUHmqXB5dYN7 iR1wKkOuRlZ4XKxyH110RoRvsFXw Vujqk9bmb0ruoRw5GbP1KXWhocTu yHoeQWU0a0JeOy93N49y TQjiJJMlOTZxYEGnPIYqdBnvjm4n lA9dSt8+DNXheLM3cSK9cK6tSzXn OoU4AGfdV275VmYjwIRy Gtlad7gjy1yuyTm3ObDqPSGjubWn vVnjMHD6f6QhXy37M4KpiWkqe9Aj Aja1pk44hOSpf8J7mAT9 T8TzYZNpljddcKAuhKbvMI6cPURt okvhQCSsqO1jWWKrY0w9JeEqVpU6 ACwwJ5ZsnyE3WVYwlELn WJsrNFV2M31vt0H4SAKgGNGzMYN4 fPK7qU0acXqpkgmcrXBdbSwlfcPk lTzjYNcpCDxcB813DIZm sBadWXDutI3lSTBznLOjtCqsZY8c NTBpbjsnPkhPTExJREFZLCBSRUJF F3ZMURk5W0XoOfb5THUr kZrbRV2eiDFwSPafWp8pyRiseOkx OU8aJOUbkforBFDfaD1cGMGjfWRt vMwnSU9mDQQdnpeil255 EtPwBKG1EYKnwISwA7ZanA5eOpFw RKAaZFRkV6RkjGVxPZdqX835KVem GxF3JJTvvoXfQ6SeYGWp xSgtWxB9k2N9Vn2eUf3uWy0bBEg6 HZ52EU15dJOxi6F4vPJ2S3DfAKDx togamlqohOT4AHJxTYIe pZ41wVGbUAeoHd6jl7V0g523GMXr FZXcdF77Sc2huHmlQXMlbEJPbG7g gawxh9lsfryfCaFhJEOi QNg0VUm4TSJvpPyrVnUzNTI2UbO7 GCV5iLHacW3yeGwhueccdO6tFfp+ HydlXSUkolY8E0EaJnh0 ONSelEwgNM8ugFMdWNstJy2boCtn aLqqIZ9aJYCyuucwGUKjyQ1oKDGb rQEtoTogIC0rVEQuatlf x815HiCkMAM6HIGhkWFfU1CanX3t OrSvOPGlSZEiD4FqeVSlJErjS635 ZIclEiT2OFDtbbJzB0Ev OLDzxHynRdL9e6P0Ht1BXW5cuUE8 F5UqIpo1CFNiqTkcXN2gxUZdPZwj Qm1sqIhzkBfeTJ1aJGNx hpjgLQEeuM4eTQCilHRzoFznTO8v TXFdibcai313SpWoYMM6GDTprSVo K1OmkU6rTrRzBKZtZZTd D9MdlIKiQRjqL722RCfeLjY7RHOd vqRfW8SoEBNllWcpHgP6a9B9Bb2U jCQvN6DtP6b0N9QbWaks dHI+BS36MXZuTE41aOZudKBmz8qd mRj9KkTyCTGiORB7tNsqOFold4Ns TOOmV35pyVKay2D8FWEl aEdszANnHfGluEH1aZ9cUTtyoxzw e1nfjvbhVfvdr5ffqs31pN23R67f IHdpZHRoPSIzMCUiIHZh oBhuqs5iwQ9pKm9+JCCmsLT8xVF7 nN5jHeYqYsB0ZTytC947NmUkzJNw Sscmo2pun4fsjVj8MyKm FJBhuaRjpKeaYVK4h2BnKm96U06q XEepKUXlJBNsELRaUDOgaFasmp2f fS0jOb6+SO8kw7ldyu38 wG97rQI+KBPuIEC1uPsuWUgbJCFo uV0oZZotXnH2HBTvVtYyzD70vSNm SSifXf2kxDxmaRmyMZ3j VMYqyxaop881VmAac7tmPVAifVPd RPwrSXE2V91et8Y9HMLmUHSeIUY6 lSP1eC6loRtwrmfkzEAz jSofqhFwuFwsEUpuRYmzN633SONm vZexLqBtqZMmO8ollrRSAW6uMzuq dGQ+MQJwBXA5rWocLKij IETydL9pYYQgU0x1CiOeUdU6WSaq K4MrgbS6ECRqlMWhPBVcdFCOhA2j hqecu5asfrtrUxRbJOKt SJg2TVl6YMKmnEceDpEpUKX9VsC8 EGY5tSWbdY7haQdqmapsqU4xKnj+ RklOOjwvdGQ+PHRkIHN0 qIhsREwpSNUupU4sAMBhB5j9FbHo EfB5LWxzY8BnewW2CYDuuRErLXXe dNPOxG7itnaui0zgmlpi EdAkWEKsXTj4LOu0EAFucRhzJnSx YKV2XeD5RTC5sYSpjB2phRvrihmf aQ7nPli+TVJOOjwvdGQ+ BCZvUSV0xOjcYDqdZRNltG5dBMYb F8r0IkPsMoO8EFqiR2WvrnZ1VVLy vNKzIDTolKRUaC9xgetn w8sapsvdMnKkGPLiICm9SOn8VBWe eUniYkMzDXY5DfT3CDT5dDRnaY8g oCmulbfifI3aQkr+UGF5 QTF8WO44TH03Y5XeGlxzyEIzmYF+ PHRhYmxlIHdpZHRoPScxMDAlJyBz pQobGB9zRn5cIKEvVPCk bGxh (more content not included)... Normal [facility] Auto Diffon 02-08-2022 Basophils/100 WBC (Bld) 1.1 % Normal 0.0-2.0 [facility] Comment on above: Order Comment: Order Added by Discern Expert. Performed By: #### 1 [id number] ####[address] [address] Basophils/Leukocytes Auto (Bld) [Pure # fraction] 0.0 E9/L Normal 0.0-0.2 [facility] Comment on above: Order Comment: Order Added by Discern Expert. Performed By: #### 1 [id number] ####[address] [address] Eosinophils/100 WBC (Bld) 8.7 % High 0.0-8.0 [facility] Comment on above: Order Comment: Order Added by Discern Expert. Performed By: #### 1 [id number], 00066333, 9396936, 1871259, 6783456 ####[address] [address] Eosinophils/Leukocyt es Auto (Bld) [Pure # fraction] 0.4 E9/L Normal 0.0-0.5 [facility] Comment on above: Order Comment: Order Added by Discern Expert. Performed By: #### 1 [id number], 01929065, 5123717, 1964982, 2063790 ####[address] [address] Lymphocytes/100 WBC (Bld) 45.5 % Normal 14.0-50.0 [facility] Comment on above: Order Comment: Order Added by Discern Expert. Performed By: #### 1 [id number], 83502232, 8838576, 9479790, 8037911 ####[address] [place] [address] Lymphocytes/Leukocyt es Auto (Bld) [Pure # fraction] 1.9 E9/L Normal 1.0-4.0 [facility] Comment on above: Order Comment: Order Added by Discern Expert. Performed By: #### 1 [id number], 34942880, 2424493, 0314689, 5316346 ####[address] [place] [address] Monocytes/100 WBC (Bld) 10.7 % Normal 4.0-14.0 [facility] Comment on above: Order Comment: Order Added by Discern Expert. Performed By: #### 1 9160080, 99212091, 9209330, 1684725, 7482640 ####[address] [address] Monocytes/Leukocytes Auto (Bld) [Pure # fraction] 0.5 E9/L Normal 0.2-1.0 [facility] Comment on above: Order Comment: Order Added by Discern Expert. Performed By: #### 1 6769665, 13637459, 5166364, 1615150, 0231632 ####[address] [address] Neutrophils/100 WBC (Bld) 34.0 % Low 36.0-75.0 [facility] Comment on above: Order Comment: Order Added by Discern Expert. Performed By: #### 1 [id number], 25865831, 7484390, 0297351, 4223595 ####[address] [address] Neutrophils/Leukocyt es Auto (Bld) [Pure # fraction] 1.5 E9/L Low 2.0-7.5 [facility] Comment on above: Order Comment: Order Added by Discern Expert. Performed By: #### 1 [id number], 26610953, 2532850, 4300470, 6147264 ####[facility] [address] [place] [address] BMPon 02-08-2022 Creatinine [Mass/Vol] 0.6 mg/dL Normal 0.5-1.3 [facility] Comment on above: Order Comment: The s pecimen for this test has been found unacceptable due to hemolysis as determined by [employer]ana in ER was contacted and the following determination was made will recollect. Performed By: #### 1 0720363, 17481307, 7103891, 6349123, 4740188 ####[facility] [address] [place] [address] Urea nitrogen [Mass/Vol] 11 mg/dL Normal 5-21 [facility] Comment on above: Order Comment: The s pecimen for this test has been found unacceptable due to hemolysis as determined by [employer] in ER was contacted and the following determination was made will recollect. Performed By: #### 1 1399047, 05758045, 5136552, 1791433, 0547194 ####[facility] [address] [place] [address] Urea nitrogen/Creatinine [Mass ratio] 18 No Units Normal 10-20 [facility] Comment on above: Order Comment: The s pecimen for this test has been found unacceptable due to hemolysis as determined by [employer] in ER was contacted and the following determination was made will recollect. Performed By: #### 1 [id number], 83106297, 2790494, 7903848, 4796019 ####[facility] [address] [place] [address] Anion gap [Moles/Vol] 9 mmol/L Normal 6-16 [facility] Comment on above: Order Comment: The s pecimen for this test has been found unacceptable due to hemolysis as determined by [employer] in ER was contacted and the following determination was made will recollect. Performed By: #### 1 5565618, 36294658, 9700449, 7372640, 0368065 ####[facility] [address] [place] [address] Calcium [Mass/Vol] 9.3 mg/dL Normal 8.9-11.1 [facility] Comment on above: Order Comment: The s pecimen for this test has been found unacceptable due to hemolysis as determined by [employer]ana in ER was contacted and the following determination was made will recollect. Performed By: #### 1 4547672, 00777317, 5520016, 1547611, 1089667 ####[facility] [address] [place] [address] Chloride [Moles/Vol] 103 mmol/L Normal 101-111 [facility] Comment on above: Order Comment: The s pecimen for this test has been found unacceptable due to hemolysis as determined by [employer]ana in ER was contacted and the following determination was made will recollect. Performed By: #### 1 5047349, 28369465, 2853751, 5960463, 8132620 ####[facility] [address] [place] [address] CO2 [Moles/Vol] 27 mmol/L Normal 21-31 [facility] Comment on above: Order Comment: The s pecimen for this test has been found unacceptable due to hemolysis as determined by [employer] in ER was contacted and the following determination was made will recollect. Performed By: #### 1 2018307, 16765727, 6177382, 0354087, 7178329 ####[facility] [address] [place] [address] Glucose [Mass/Vol] 116 mg/dL Normal 55-199 [facility] Comment on above: Order Comment: The s pecimen for this test has been found unacceptable due to hemolysis as determined by [employer]Alana in was contacted and the following determination was made will recollect. Result Comment: If t his glucose result represents a fasting glucose, interpretation should refer to the following reference range: 55-99 mg/dL Performed By: #### 1 [id number], 45112848, 0068009, 0921369, 9647675 ####[facility] [address] [place] [address] Potassium [Moles/Vol] 4.1 mmol/L Normal 3.5-5.3 [facility] Comment on above: Order Comment: The s pecimen for this test has been found unacceptable due to hemolysis as determined by [employer] in ER was contacted and the following determination was made will recollect. Performed By: #### 1 6114469, 47350845, 0649622, 1406572, 4928574 ####[address] [place] [address] Sodium [Moles/Vol] 135 mmol/L Normal 135-145 [facility] Comment on above: Order Comment: The s pecimen for this test has been found unacceptable due to hemolysis as determined by [employer]ana in ER was contacted and the following determination was made will recollect. Performed By: #### 1 0712578, 78006675, 3662939, 8279333, 3983069 ####[address] [place] [address] CBC w/ Auto Diffon 2 Erythrocyte distribution width (RBC) [Ratio] 13.3 % Normal 10.9-14.2 [facility] Comment on above: Performed By: #### 1 1013306, 05008496, 5390725, 8895329, 4476634 ####[address] [place] [address] Hematocrit (Bld) [Volume fraction] 38.2 % Normal 34.0-46.0 [facility] Comment on above: Performed By: #### 1 0200859, 11510954, 2798491, 3686257, 6912716 ####[address] [place] [address] Hemoglobin (Bld) [Mass/Vol] 12.8 g/dL Normal 12.0-16.0 [facility] Comment on above: Performed By: #### 1 0952277, 70336383, 0603774, 4441105, 9867365 ####[address] [place] [address] MCH (RBC) [Entitic mass] 32.8 pg Normal 27.0-34.0 [facility] Comment on above: Performed By: #### 1 3123513, 92361068, 3923094, 1380730, 7749091 ####[address] [address] MCHC (RBC) [Mass/Vol] 33.7 g/dL Normal 31.4-36.0 [facility] Comment on above: Performed By: #### 1 7959802, 03584622, 3712168, 6973798, 2424490 ####[address] [address] MCV (RBC) [Entitic vol] 97.6 fL Normal 80.0-100.0 [facility] Comment on above: Performed By: #### 1 0610442, 43775932, 5032096, 7546002, 4445305 ####[address] [address] Platelet mean volume (Bld) [Entitic vol] 9.2 fL Normal 6.4-10.8 [facility] Comment on above: Performed By: #### 1 9578205, 67695651, 6284174, 8691913, 1697752 ####[address] [address] Platelets (Bld) [#/Vol] 239.0 E9/L Normal 150.0-500. 0 [facility] Comment on above: Performed By: #### 1 9249538, 40165205, 5537361, 5859415, 4765717 ####[address] [address] RBC (Bld) [#/Vol] 3.9 E12/L Low 4.3-5.9 [facility] Comment on above: Performed By: #### 1 7338391, 78828736, 3069099, 3729420, 0436807 ####[address] [place] [address] WBC corrected for nucl RBC Auto (Bld) [#/Vol] 4.3 E9/L Normal 4.0-11.0 [facility] Comment on above: Performed By: #### 1 9152574, 50226148, 3655827, 3784940, 9457907 ####[facility] [address] [place] [address] CHEMISTRYOrdered By: SYSTEM SYSTEM on 02-08-2022 Anion gap [Moles/Vol] 9 mmol/L Normal 6 - 16 mEq/L [facility] Calcium [Mass/Vol] 9.3 mg/dL Normal 8.9 - 11. 1 mg/dL [facility] Chloride [Moles/Vol] 103 mmol/L Normal 101 - 1 11 mmol/L [facility] CO2 [Moles/Vol] 27 mmol/L Normal 21 - 31 mmol/L [facility] Creatinine [Mass/Vol] 0.6 mg/dL Normal 0.5 - 1.3 mg/dL [facility] GFR/1.73 sq M.predicted among blacks MDRD (S/P/Bld) [Vol rate/Area] mL/min/1.73 m2 Normal >=59mL/min /1.73 m2 [facility] Chem S GFR/1.73 sq M.predicted among non-blacks MDRD (S/P/Bld) [Vol rate/Area] mL/min/1.73 m2 Normal >=59mL/min /1.73 m2 [facility] [place] S Glucose [Mass/Vol] 116 mg/dL Normal 55 - 199 mg/dL [facility] Potassium [Moles/Vol] 4.1 mmol/L Normal 3.5 - 5.3 mmol/L [facility] Sodium [Moles/Vol] 135 mmol/L Normal 135 - 145 mmol/L [facility] Troponin I.cardiac [Mass/Vol] 2.90 pg/mL Low 10.10 - 27.10 pg/mL [facility] Urea nitrogen [Mass/Vol] 11 mg/dL Normal 5 - 21 mg/dL [facility] Urea nitrogen/Creatinine [Mass ratio] 18 mg/mg Normal 10 - 20 [facility] COAGULATIONOrdered By: Day Tenorio on 02-08-2022 aPTT Coag (PPP) [Time] 34.7 s Normal 25.1 - 36.5 second(s) [facility] [place] Coag Fibrin D-dimer FEU (PPP) [Mass/Vol] 1364 ng/mL FEU Invalid Interpretation Code 215 - 500 ng/mL FEU [facility] Comment on above: Result Comment: Resu lts Called To ER/Kinza Alanis By And Read Back For Confirmation On 02/08/2022 09:57:01 EDT Results Verified By Repeat Analysis INR Coag (PPP) [Relative time] 1.0 {INR} Invalid Interpretation Code [facility] [place] PT Coag (PPP) [Time] 11.7 s Normal 9.4 - 1 2.5 second(s) [facility] [place] CTA [place] 02-08-2022 CTA Chest Exam Date/Time: 02/08/2022 10:17 EDT Reason for Exam: Pulmonary Emboli (PE) Report IMPRESSION: NO CT EVIDENCE OF PULMONARY EMBOLISM. NO CHEST ABNORMALITY IS EVIDENT. CLINICAL HISTORY: Pulmonary Emboli (PE). Chest pain. Palpitations. Elevated d-dimer. COMMENT: Axial images were obtained after the rapid injection of IV contrast with narrow collimation and reconstructed at a narrow interval. Coronal and sagittal reconstructions were performed. On the PACS, images were reviewed in cine display and using MIP postprocessing. The pulmonary arteries are contrast opacified and no intraluminal filling defects are noted. The thoracic aorta is normal, without evidence of aneurysm or dissection. The heart is normal in size. No pericardial effusion is noted. There is no mediastinal nor hilar lymphadenopathy. Both lungs are aerated and appear clear. No infiltration, no lung mass, nor pleural effusion is evident. The kidneys are partially included within the pcekh-wu-bidj. There is a 0.3 cm nonobstructing calculus in the right kidney. There is a 1.8 cm cyst in the upper pole of the right kidney. All CT scans at this facility use dose modulation, iterative reconstruction, and/or weight based dosing when appropriate to reduce radiation dose to as low as reasonably achievable. FINAL REPORT Dictated: 02/08/2022 10:48 am Jose Solis M.D. Signed (Electronic Signature): 02/08/2022 10:48 am Signed by: Jose Solis M.D. Transcribed by: SAYDA Technologist: ORI Technical Comments GFR (mL/min/1/73m2) >60 Contrast: Isovue 370 Contrast amount in ml's: 73 Normal [facility] Consent for Treatmenton 01-29 Consent for Treatment [id number]#1.00CD:127 Normal [facility] D-Dimeron 02-08-2022 Fibrin D-dimer FEU (PPP) [Mass/Vol] [id number] CD:[id number] Abnormal 215-500 [facility] Comment on above: Result Comment: Resu lts Called To ER/Kinza Alanis By And Read Back For Confirmation On 02/08/2022 09:57:01 EDT Results Verified By Repeat Analysis This assay is intended for use as an aid in the diagnosis of DVT or PE. These conditions cannot be excluded with certainty solely on the basis of a D-dimer concentration being within the reference range This D-Dimer assay may be used in conjunction with a non-high clinical pretest probability assessment to exclude deep-vein thrombosis(DVT). For exclusion of venous thrombosis or pulmonary embolism the analyte D-Dimer should not be used as an aid in patients with: Therapeutic dose anticoagulant therapy for >24 hours Fibrinolytic therapy within previous 7 days Trauma or surgery within previous 4 weeks Disseminated malignacies Aortic aneurysm Sepsis, severe infections, pneumonia, severe skin infections Liver cirrhosis Performed By: #### 1 [id number] ####[facility] [address] [place] [address] Discharge Instructionson Discharge Instructions [id number]:127 Normal [facility] ED Clinical Summaryon 2021 ED Clinical Summary (Inserted Image. Agnieszka ble to display) [place] [id number] ED Clinical Summary Person Information Name: ANMOL GUARDADO [place] Age: 37 Years : 1985 Sex: Female Language: Azerbaijani PCP: ANAND EDWARDS CNP Marital Status: Phone: [phone] Visit Id: Visit Reason: Palpitations; Chest pain; CHEST PAIN, PALPITATIONS Speciality: Acuity: 3 Enc Type: Emergency Med Service: Emergency Arrival: 02/08/2022 08:53:30 Discharge: 02/08/2022 11:25:57 LOS: 000 02:32 Checkin: 02/08/2022 08:53:30 Checkout: 02/08/2022 11:25:57 Dispo Type: Home (Routine DC) EVENTS: Event Name Event Status Request Date/Time Start Date/Time Complete Date/Time Arrive Complete 02/08/2022 08:53:30 02/08/2022 08:53:30 02/08/2022 08:53:30 Document Home Meds Request 02/08/2022 08:53:30 Triage Complete 02/08/2022 08:53:30 02/08/2022 08:58:28 02/08/2022 08:58:28 Bed Assign Complete 02/08/2022 08:54:37 02/08/2022 08:54:37 02/08/2022 08:54:37 Dr Exam Complete 02/08/2022 08:54:37 02/08/2022 08:55:23 02/08/2022 08:55:23 RN Exam Complete 02/08/2022 08:54:37 02/08/2022 09:15:57 02/08/2022 09:15:57 EKG Complete 02/08/2022 08:55:16 02/08/2022 09:02:10 Registration Complete 02/08/2022 08:55:23 02/08/2022 10:09:21 02/08/2022 10:09:21 Dr Exam Complete 02/08/2022 08:58:28 02/08/2022 08:58:28 02/08/2022 08:58:28 Pending Labs Complete 02/08/2022 08:59:11 02/08/2022 11:20:12 Lab Complete 02/08/2022 08:59:11 02/08/2022 09:49:19 Patient Care Request 02/08/2022 08:59:11 RT Request 02/08/2022 08:59:11 X-Ray Complete 02/08/2022 08:59:11 02/08/2022 09:24:15 02/08/2022 09:33:54 Pending Labs Complete 02/08/2022 09:13:46 02/08/2022 09:13:46 02/08/2022 09:49:21 Lab Complete 02/08/2022 09:13:46 02/08/2022 09:13:46 02/08/2022 09:49:21 Pending Labs Complete 02/08/2022 09:19:10 02/08/2022 09:19:10 02/08/2022 09:19:19 Lab Complete 02/08/2022 09:19:10 02/08/2022 09:19:10 02/08/2022 09:19:19 Pending Labs Complete 02/08/2022 09:20:57 02/08/2022 09:20:57 02/08/2022 09:20:58 Wet Read Request 02/08/2022 09:33:54 Pending Labs Complete 02/08/2022 09:35:10 02/08/2022 09:57:10 Lab Complete 02/08/2022 09:35:10 02/08/2022 09:57:10 Pending Labs Complete 02/08/2022 09:38:16 02/08/2022 09:38:16 02/08/2022 09:38:17 CT Complete 02/08/2022 09:56:54 02/08/2022 10:04:07 02/08/2022 10:17:27 Reg Complete Request 02/08/2022 10:09:21 Reg Bed Request Complete 02/08/2022 10:09:21 02/08/2022 10:09:21 02/08/2022 10:09:21 Discharge Complete 02/08/2022 11:11:45 02/08/2022 11:26:01 02/08/2022 11:26:01 Transfer Complete 02/08/2022 11:26:01 02/08/2022 11:26:01 02/08/2022 11:26:01 ADDRESS: [address] [place] [phone] PHYS DOC NOTES: MEDICAL INFORMATION: Prescriptions Given: Medications to Continue with No Changes Other Medications ciprofloxacin (Cipro 500 mg Tab) 1 Tablets By Mouth 2 times a day. Take one tab by mouth twice a day for seven days. Refills: 0. cyclobenzaprine (Flexeril 10 mg Tab) 1 Tablets By Mouth 3 times a day. hydrocortisone-pramoxine topical (Proctofoam HC rectal foam) 1 Application By rectum 3 times a day. Refills: 0. naproxen By Mouth as needed Pain - Mild. PATIENT EDUCATION INFORMATION: Instructions: Palpitations Follow up: With: Address: When: Mustapha Wooten [address] [place] [phone] Business (1) In 3 days 02/11/2022 With: Address: When: ANAND EDWARDS [address] [place] [address], [address] [place] [address] Business (1) In 3 days DIAGNOSIS: Palpitations Normal [facility] ED Note-Physicianon 02-09-20 ED Note-Physician Basic Information Time Seen: Domenico Daugherty PA-C 02/08/2022 08:55 Chief Complaint patient c/o chest pain and palpitations over past couple of days. patient denies heart hx History of Present Illness 37-year-old female comes to the ED for evaluation of palpitations. For last few days she has had palpitations with some chest tightness. Denies any chest pain currently. No associated shortness of breath, fever, chills, nausea or vomiting. No cough or congestion. No history of similar symptoms in the past. No personal history of CAD. Risk factors do include family history and tobacco use. Review of Systems A 10 point review of systems is negative except as noted above. Medical and Surgical History: Reviewed and noted Social history: Lives at home Tobacco: Denies Physical Exam Vitals & Measurements HR: 101(Peripheral) RR: 18 BP: 149/86 SpO2: 99% HT: 167.0 cm HT: 167 cm WT: 55.0 kg WT: 55 kg BMI: 19.72 Nurses notes and vital signs reviewed and patient is not hypoxic. General: The patient appears well and in no significant distress Patient is resting comfortably on the exam bed. Skin: Warm, dry, no pallor noted. Head: Atraumatic. Neck: No JVD. Eye: Normal conjunctiva. Ears, Nose, Mouth, and Throat: Moist mucous members. Cardiovascular: Strong distal pulses. Mildly tachycardic and irregular. No peripheral edema. Chest wall: Respiratory: Respirations are nonlabored. Back: Normal range of motion, no CVA tenderness. Musculoskeletal: Normal ROM with no gross deformity. Gastrointestinal: Soft and nontender. Urological: Neurological: Awake and alert. No focal deficits. Follows commands. GCS 15. Psychiatric: Cooperative. Medical Decision Making EKG shows sinus arrhythmia without ischemic changes. Chest x-ray shows no acute infiltrates. Laboratory studies reviewed and noted. She is slightly tachycardic therefore D-dimer was obtained which returned elevated and CTA of the chest was obtained. This is negative per radiologist. With serial examination she is resting comfortably. Repeat evaluation shows heart rate in the 60s. Results are discussed with her. She is on palpitations for the last few days with heart score less than 3. She is safe for discharge home with outpatient follow-up. She was set up with 24-hour Holter monitor and given cardiology referral. Patient was encouraged to return to the ED if symptoms worsen or change. Assessment/Plan Palpitations (R00.2: Palpitations) Orders: Automated Diff Basic Metabolic Panel CBC w/ Auto Diff CTA Chest D-Dimer ED Cardiac Monitoring eGFR Extra Lav Tube Extra SST Tube Extra SST Tube Oxygen Saturation Oxygen Therapy PT & PTT Saline Lock Insert Troponin 0 Hr. Troponin 3 Hr. Troponin 6 Hr. Troponin 9 Hr. XR Chest Single View Disposition Plan Patient Discharge Condition Disposition: Discharged home Condition: Improved and stable Counseled: Patient and/or family were counseled to workup, results, treatment plan and follow-up recommendations Discharge Prescription List Prescriptions No active prescription medications Follow-up With When Contact Information Mustapha Wooten In 3 days 02/11/2022 EDT [address] [place] [address]- [phone] Business (1) Additional Instructions: ANAND EDWARDS In 3 days [address] [facility] [address] [place] [address]- [email or web address] (1) Additional Instructions: Patient Education Palpitations Attestation Patient seen and evaluated by the physician automotive parts counter assistant. Attending physician was present in the emergency department and supervised care. This visit was performed by both the physician and an APC. I performed all aspects of the MDM as documented. This report was transcribed using voice recognition software. Every effort was made to ensure accuracy, however, inadvertently computerized geriatric care manager mistakes may be present. Appropriate healthcare PPE was used in evaluating this patient. The patient was placed in a mask. The healthcare provider was wearing mask, gloves, and utilizing proper hand hygiene. All equipment was properly cleansed. Problem List/Past Medical History Ongoing Smoker Historical Neck pain Medications Inpatient No active inpatient medications Home Cipro 500 mg Tab, 500 mg= 1 tab(s), Oral, BID Flexeril 10 mg Tab, 10 mg= 1 tab(s), Oral, TID naproxen, Oral, PRN Proctofoam HC rectal foam, 1 lina, Rectal, TID Allergies No Known Medication Allergies Social History Alcohol - Denies Alcohol Use, 02/08/2022 Substance Abuse - Denies Substance Abuse, 02/08/2022 Tobacco - High Risk, 02/08/2022 10 or more cigarettes (1/2 pack or more)/day in last 30 days Tobacco Use:. Cigarettes, 02/08/2022 Lab Results WBC: 4.3 E9/L (02/08/22 09:09:00) RBC: 3.9 E12/L Low (02/08/22 09:09:00) HGB: 12.8 gm/dL (02/08/22 09:09:00) Hct: 38.2 % (02/08/22 09:09:00) MCV: 97.6 fL (02/08/22 09:09:00) MCH: 32.8 pg (02/08/22 09:09:00) MCHC: 33.7 gm/dL (02/08/22 09:09:00) (more content not included)... Normal [facility] Comment on above: Result Comment: Elec tronically Signed By: Domenico Daugherty PA-C\.br\Date and Time Signed: 02/08/22 11:20 EDT\.br\Electronically Co-Signed By: Feng Jose DO\.br\Date and Time Co-Signed: 02/08/22 19:19 EDT ED Patient Education Noteon 02-08-2022 ED Patient Education Note Emergency Medicine Palpitations Palpitations are feelings that your heartbeat is irregular or is faster than normal. It may feel like your heart is fluttering or skipping a beat. Palpitations are usually not a serious problem. They may be caused by many things, including smoking, caffeine, alcohol, stress, and certain medicines or drugs. Most causes of palpitations are not serious. However, some palpitations can be a sign of a serious problem. You may need further tests to rule out serious medical problems. Follow these instructions at home: Pay attention to any changes in your condition. Take these actions to help manage your symptoms: Eating and drinking ? Avoid foods and drinks that may cause palpitations. These may include: ? Caffeinated coffee, tea, soft drinks, diet pills, and energy drinks. ? Chocolate. ? Alcohol. Lifestyle ? Take steps to reduce your stress and anxiety. Things that can help you relax include: ? Yoga. ? Mind-body activities, such as deep breathing, meditation, or using words and images to create positive thoughts (guided imagery). ? Physical activity, such as swimming, jogging, or walking. Tell your health care provider if your palpitations increase with activity. If you have chest pain or shortness of breath with activity, do not continue the activity until you are seen by your health care provider. ? Biofeedback. This is a method that helps you learn to use your mind to control things in your body, such as your heartbeat. ? Do not use drugs, including cocaine or ecstasy. Do not use marijuana. ? Get plenty of rest and sleep. Keep a regular bed time. General instructions ? Take rjay-cfs-zuaipus and prescription medicines only as told by your health care provider. ? Do not use any products that contain nicotine or tobacco, such as cigarettes and e-cigarettes. If you need help quitting, ask your health care provider. ? Keep all follow-up visits as told by your health care provider. This is important. These may include visits for further testing if palpitations do not go away or get worse. Contact a health care provider if you: ? Continue to have a fast or irregular heartbeat after 24 hours. ? Notice that your palpitations occur more often. Get help right away if you: ? Have chest pain or shortness of breath. ? Have a severe headache. ? Feel dizzy or you faint. Summary ? Palpitations are feelings that your heartbeat is irregular or is faster than normal. It may feel like your heart is fluttering or skipping a beat. ? Palpitations may be caused by many things, including smoking, caffeine, alcohol, stress, certain medicines, and drugs. ? Although most causes of palpitations are not serious, some causes can be a sign of a serious medical problem. ? Get help right away if you faint or have chest pain, shortness of breath, a severe headache, or dizziness. This information is not intended to replace advice given to you by your health care provider. Make sure you discuss any questions you have with your health care provider. Document Released: 06/14/2001 Document Revised: 07/30/2018 Document Reviewed: 07/30/2018 Elsevier Patient Education ? 2019 [employer]. Normal [facility] ED Patient Summaryon 022 ED Patient Summary (Inserted Image. Agnieszka ble to display) [address] [address] Patient Discharge Instructions Person Information Name: ANMOL GUARDADO Age: 37 Years Arrival Date: 02/08/2022 08:53:30 Discharge Diagnosis: Palpitations Primary Care Physician: ANAND EDWARDS CNP Provider Information Primary Provider: Feng Jose DO Advanced Nut Packer:Dmoenico Daugherty PA-C The exam and treatment you received in the Emergency Department were for an urgent problem and are not intended as complete care. It is important that you follow up with a doctor, nurse practitioner, or physician?s automotive parts counter assistant for ongoing care. If your symptoms become worse or you do not improve as expected and you are unable to reach your usual health care provider, you should return to the Emergency Department. We are available 24 hours a day. LEON ANMOL Lennon has been given the following list of patient education materials, prescriptions and follow-up instructions: Follow-up Instructions: With: Address: When: Mustapha Wooten [address] [place] [phone] Business (1) In 3 days 02/11/2022 With: Address: When: ANAND EDWARDS [address] [place] [address], [address] [place] [address] Business (1) In 3 days In the event that this physician does not participate in your insurance network, please consult with your insurance company to find a nearby participating provider. Patient Education Materials: Palpitations A MESSAGE TO ALL PATIENTS REGARDING OPIOIDS PRESCRIPTION OPIOIDS: WHAT YOU NEED TO KNOW Prescription opioids can be used to help relieve kgmmgyph-bz-lemnsm pain and are often prescribed following a surgery or injury, or for certain health conditions. These medications can be an important part of the treatment but also come with serious risks. It is important to work with your healthcare provider to make sure you are getting the safest, most effective care. WHAT ARE THE RISKS AND SIDE EFFECTS OF OPIOID USE? Prescription opioids carry serious risks of addiction and overdose, especially with prolonged use. An opioid overdose, often marked by slowed breathing, can cause sudden . The use of prescription opioids can have a number of side effects as well, even when taken as directed: ? Tolerance?meaning you might need to take more of the medication for the same pain relief ? Physical dependence?meaning you have symptoms of withdrawal when a medication is stopped ? Increased sensitivity to pain ? Constipation ? Nausea, vomiting, and dry mouth ? Sleepiness and dizziness ? Confusion ? Depression ? Low levels of testosterone that can result in lower sex drive, energy, and strength ? Itching and sweating RISKS ARE GREATER WITH: ? History of drug misuse, substance use disorder, or overdose ? Mental health conditions (such as depression or anxiety) ? Sleep apnea ? Older age (65 years and older) ? Avoid alcohol while taking prescription opioids. Also, unless specifically advised by your health care provider, medications to avoid include: ? Benzodiazepines (such as Xanax or Valium) ? Muscle relaxants (such as Soma or Flexeril) ? Hypnotics (such as Ambien or Lunesta) ? Other prescription opioids KNOW YOUR OPTIONS Talk to your health care provider about ways to manage your pain that don?t involve prescription opioids. Some of these options may actually work better and have fewer risks and side effects. Options may include: ? Pain relievers such as acetaminophen, ibuprofen, and naproxen ? Some medication that are also used for depression or seizures ? Physical therapy and exercise ? Cognitive behavioral therapy, a psychological, goal-directed approach, in which patients learn how to modify physical, behavioral, and emotional triggers of pain and stress. IF YOU ARE PRESCRIBED OPIOIDS FOR PAIN: ? Never take opioids in greater amounts or more often than prescribed. ? Follow up with your primary health care provider. o Work together to create a plan on how to manage your pain. o Talk about ways to help manage your pain that don?t involve prescription opioids. o Talk about any and all concerns and side effects. ? Help prevent misuse and abuse o Never sell or share prescription opioids. o Never use another person?s prescription opioids. ? Store prescription opioids in a secure place and out of reach of others (this may include visitors, children, friends, and family). ? Safely dispose of unused prescription opioids: Find your community drug take-back program or your pharmacy mail-back program, or flush them down the toilet, following guidance from the Food and Drug Administration (www.fda.gov/Drugs/Resources ForYou). ? Visit www.cdc.gov/drugoverdose to learn about the risks of opioids abuse and overdose. ? If you believe you may be struggling with addiction, tell your health care p (more content not included)... Normal [facility] HEMATOLOGYOrdered By: SYSTEM SYSTEM on 02-08-2022 Basophils/100 WBC (Bld) 1.1 % Normal 0.0 - 2.0 % [facility] Basophils/Leukocytes Auto (Bld) [Pure # fraction] 0.0 E9/L Normal 0.0 - 0.2 E9/L [facility] Eosinophils/100 WBC (Bld) 8.7 % High 0.0 - 8.0 % [facility] Eosinophils/Leukocyt es Auto (Bld) [Pure # fraction] 0.4 E9/L Normal 0.0 - 0.5 E9/L [facility] Lymphocytes/100 WBC (Bld) 45.5 % Normal 14.0 - 50.0 % [facility] Lymphocytes/Leukocyt es Auto (Bld) [Pure # fraction] 1.9 E9/L Normal 1.0 - 4.0 E9/L [facility] Monocytes/100 WBC (Bld) 10.7 % Normal 4.0 - 14.0 % [facility] Monocytes/Leukocytes Auto (Bld) [Pure # fraction] 0.5 E9/L Normal 0.2 - 1.0 E9/L [facility] Neutrophils/100 WBC (Bld) 34.0 % Low 36.0 - 75.0 % [facility] Neutrophils/Leukocyt es Auto (Bld) [Pure # fraction] 1.5 E9/L Low 2.0 - 7.5 E9/L [facility] HEMATOLOGYOrdered By: Radha Bradley on 02-08-2022 Erythrocyte distribution width (RBC) [Ratio] 13.3 % Normal 10.9 - 14.2 % [facility] Hematocrit (Bld) [Volume fraction] 38.2 % Normal 34.0 - 46.0 % [facility] Hemoglobin (Bld) [Mass/Vol] 12.8 g/dL Normal 12.0 - 16.0 gm/dL [facility] MCH (RBC) [Entitic mass] 32.8 pg Normal 27.0 - 34.0 pg [facility] MCHC (RBC) [Mass/Vol] 33.7 g/dL Normal 31.4 - 36.0 gm/dL [facility] MCV (RBC) [Entitic vol] 97.6 fL Normal 80.0 - 100.0 fL [facility] Platelet mean volume (Bld) [Entitic vol] 9.2 fL Normal 6.4 - 10.8 fL [facility] Platelets (Bld) [#/Vol] 239.0 E9/L Normal 150.0 - 500.0 E9/L [facility] RBC (Bld) [#/Vol] 3.9 E12/L Low 4.3 - 5.9 E12/L [facility] WBC corrected for nucl RBC Auto (Bld) [#/Vol] 4.3 E9/L Normal 4.0 - 11.0 E9/L [facility] Monitor Recordon 02-08-2022 Monitor Record [id number]#[id number]:127 Normal [facility] Monitor Record [id number]#[id number]:127 Normal [facility] PT & PTTon 02-08-2022 aPTT Coag (PPP) [Time] 34.7 second(s) Normal 25.1-36.5 [facility] Comment on above: Result Comment: Para meter 15 days - 4 weeks 1 - 5 months 6 - 11 months 1 - 5 years 6 - 10 years 11 - 17 years PTT Mean: 35.4 (27.6-45.6) Mean: 33.5 (24.8-40.7) Mean: 32.4 (25.1-40.7) Mean: 31.6 (24.0-39.2) Mean: 31.6 (26.9-38.7) Mean: 31.0 (24.6-38.4) Pediatric Reference ranges were obtained from a study by mary Martel prepared from 1437 samples obtained at 7 different centers using the same coagulation reagent and instrumentation as [facility]. Currently there are no coagulation studies available worldwide for children to 14 days, and no normal ranges. Heparin therapeutic range (represented by Anti-Factor Xa activity of 0.2 - 0.4 U/mL) corresponds to PTT of 56.6 - 109.0 sec. Performed By: #### 1 [id number] ####[facility] [address] [place] [address] INR Coag (PPP) [Relative time] 1.0 {INR} Invalid Interpretation Code [facility] Comment on above: Result Comment: INR results are specifically intended to assess patients stabilized on long-term Anticoagulation therapy suggested INR?s ?Less Intensive Anticoagulation? 2.0 ? 3.0 Conventional Range 3.0 ? 4.5 Performed By: #### 1 [id number] ####[facility] [address] [place] [address] PT Coag (PPP) [Time] 11.7 second(s) Normal 9.4-12.5 [facility] Comment on above: Result Comment: 15 d ays - 4 weeks 1 - 5 months 6 -11 months 1 ? 5 years 6 ? 10 years 11 -17 years Mean: 11.2 (9.5 ? 12.6) Mean: 11.0 (9.7 ? 12.8) Mean: 11.0 (9.8 ? 13.0) Mean: 11.3 (9.9 ? 13.4) Mean: 11.7 (10.0 ? 14.6) Mean: 11.8 (10.0 - 14.1) Pediatric Reference ranges were obtained from a study by mary Martel prepared from 1437 samples obtained at 7 different centers using the same coagulation reagent and instrumentation as [facility]. Currently there are no coagulation studies available worldwide for children to 14 days, and no normal ranges. Performed By: #### 1 [id number] ####[facility] [address] [place] [address] Physician Orderon 02-08-2022 Physician Order [id number]#[id number]:127 Normal [facility] Physician Order [id number]#[id number]:127 Normal [facility] Troponin 0 Hr.on 02-08-2022 Troponin I.cardiac [Mass/Vol] 2.90 pg/mL Low 10.10-27.1 0 [facility] Comment on above: Result Comment: The 95% CI (Confidence Interval) PPV (Positive Predictive Value) for myocardial infarction in females is 38 pg/mL, in males 51 pg/mL. The results should be used in conjunction with clinical conditions of myocardial infarction. (Access High Sensitivity Troponin I Instructions For Use, Matthew [employer], January 2018) Performed By: #### 1 [id number] ####[facility] [id number] [place] [address] XR Chest Single Viewon 02-08 XR Chest Single View Exam Date/Time: 02/08/2022 09:33 EDT Reason for Exam: Chest pain Report IMPRESSION: NO EVIDENCE OF ACTIVE CHEST DISEASE. CLINICAL HISTORY: Chest pain. COMMENT: AP portable. The heart is normal in size. The mediastinum is unremarkable. The patient's nipples project as symmetrically located nodular densities on the lung bases laterally. No infiltration nor pleural effusion is evident. FINAL REPORT Dictated: 02/08/2022 9:38 am Jose Solis M.D. Signed (Electronic Signature): 02/08/2022 9:38 am Signed by: Jose Solis M.D. Transcribed by: SAYDA Technologist: Normal [facility] eGFRon 02-08-2022 GFR/1.73 sq M.predicted among blacks MDRD (S/P/Bld) [Vol rate/Area] mL/min/{1.73_m2} Normal >=59 [facility] Comment on above: Order Comment: Order added by Discern Expert. Result Comment: eGFR is race adjusted. AA=. Performed By: #### 1 [id number] ####[facility] [id number] [place] [address] GFR/1.73 sq M.predicted among non-blacks MDRD (S/P/Bld) [Vol rate/Area] mL/min/{1.73_m2} Normal >=59 [facility] Comment on above: Order Comment: Order added by Discern Expert. Result Comment: Senior Financial Reporting Accountant deena kidney disease could be indicated at eGFR's of less than 60 mL/min/1.73m2. Kidney failure is indicated at less than 15 mL/min/1.73m2. Performed By: #### 1 [id number] ####[facility] [id number] [place] [address] COVID-19 Antigenon 1 COVID-19 Antigen Reason for Exam Loss of taste;Cough;Loss of smell;Viral illness Nasal Reason for Exam: Loss of taste;Cough;Loss of smell;Viral illness Healthcare Worker?: No : Nasal Eduardo Reference Eduardo Reference Negative SARS-CoV+SARS-CoV-2 (COVID-19) Ag [Presence] in Respiratory specimen by Rapid immunoassay Positive for SARS Antigen by [facility]US COVID19 Blank Space Eduardo Disclaimer The Eduardo SARS Antigen TA[facility]US does not differentiate Eduardo Disclaimer between SARS-CoV and SARS-CoV-2. COVID19 Blank Space Eduardo Disclaimer This test was developed and its performance Eduardo Disclaimer characteristic determined by [employer] and Eduardo Disclaimer validated at [facility]. This Eduardo Disclaimer test has not been FDA cleared or approved. This Eduardo Disclaimer test has been authorized by FDA under an Emergency Use Eduardo Disclaimer Authorization (EUA). This test has been validated Eduardo Disclaimer in accordance with the FDA's Guidance Document (Policy Eduardo Disclaimer for Diagnostics Testing in Laboratories Certified to Eduardo Disclaimer Perform High Complexity Testing under CLIA prior to Eduardo Disclaimer Emergency Use Authorization for Coronavirus Eduardo Disclaimer iseas during the Public Health Emergency) Eduardo Disclaimer issued on October 01, 2019. This test is only authorized Eduardo Disclaimer for the duration of time the declaration that Eduardo Disclaimer circumstances exist justifying the authorization of Eduardo Disclaimer the emergency use of in vitro diagnostic tests for Eduardo Disclaimer detection of SARS-CoV-2 virus and/or diagnosis of Eduardo Disclaimer COVID-19 infection under section 564(b)(1) of the Eduardo Disclaimer Act, 21 U.S.C. 360bbb-3(b)(1), unless the Eduardo Disclaimer authorization is terminated or revoked sooner. PERFORMED BY: [place] [address] PATHOLOGIST FINANCIAL SERVICES AGENT RABIA FOSTER M.D. Normal [facility] Comment on above: Performed By: #### S OFIAPOS, COVID-19 EDUARDO #### [facility] [address] [place] [address] [facility] Eduardo Ag Positiveon 09-24-19 21 Eduardo Ag Positive Positive Normal Negative [facility] Comment on above: Result Comment: This is a duplicate Eduardo SARS Antigen (TAURUS) result to be used for statistical tracking purpose only. PERFORMED BY: [facility] [address] [place] [address] PATHOLOGIST FINANCIAL SERVICES AGENT RABIA FOSTER M.D. Performed By: #### S OFGRETCHENPOS, COVID-19 EDUARDO #### [address] Vital Signs Date Time Vital Sign Value Performing Clinician Facility 05-22-2024 10:45-0500 Diastolic blood pressure 86 mm[Hg] Rusty Yadav MD Work Phone: [email or web address] 05-22-2024 10:45-0500 Heart rate 82 /min Rusty Yadav MD Work Phone: [email or web address] 05-22-2024 10:45-0500 Respiratory rate 16 /min Rusty Yadav MD Work Phone: [email or web address] 05-22-2024 10:45-0500 SaO2% (BldA) [Mass fraction] 100 % Rusty Yadav MD Work Phone: [email or web address] 05-22-2024 10:45-0500 Systolic blood pressure 127 mm[Hg] Rusty Yadav MD Work Phone: [email or web address] 05-22-2024 10:15-0500 Body temperature 97.5 [degF] Rusty Yadav MD Work Phone: [email or web address] 05-22-2024 08:40-0500 Body mass index (BMI) [Ratio] 18.95 kg/m2 Rusty Ydaav MD Work Phone: [email or web address] 05-22-2024 08:40-0500 Body weight 53.25 kg Rusty Yadav MD Work Phone: [email or web address] 05-18-2024 16:15-0500 Body height 167.6 cm Rusty Yadav MD Work Phone: [email or web address] 02-08-2022 11:00-0400 Diastolic blood pressure 77 mm[Hg] Feng Jose [facility] 02-08-2022 11:00-0400 Heart rate 67 /min Feng Damon [facility] 02-08-2022 11:00-0400 Mean blood pressure 86 mm[Hg] Feng Damon [facility] 02-08-2022 11:00-0400 Respiratory rate 13 /min Feng Damon [facility] 02-08-2022 11:00-0400 SaO2% (BldA) [Mass fraction] 97 % Feng Damon [facility] 02-08-2022 11:00-0400 Systolic blood pressure 105 mm[Hg] Feng Damon [facility] 02-08-2022 10:51-0400 SaO2% (BldA) [Mass fraction] 100 % Feng Damon [facility] 02-08-2022 10:45-0400 Heart rate 81 /min Fneg Admon [facility] 02-08-2022 10:45-0400 Respiratory rate 12 /min Feng Damon [facility] 02-08-2022 10:45-0400 SaO2% (BldA) [Mass fraction] 99 % Feng Damon [facility] 02-08-2022 10:00-0400 Diastolic blood pressure 79 mm[Hg] Feng Damon [facility] 02-08-2022 10:00-0400 Mean blood pressure 89 mm[Hg] Feng Damon [facility] 02-08-2022 10:00-0400 Systolic blood pressure 108 mm[Hg] Feng Damon [facility] 02-08-2022 09:11-0400 Heart rate 101 /min Feng Damon [facility] 02-08-2022 08:54-0400 Body temperature 98.24 [degF] Feng Jose [facility] 02-08-2022 08:54-0400 Diastolic blood pressure 86 mm[Hg] Feng Jose [facility] 02-08-2022 08:54-0400 Heart rate 96 /min Feng Jose [facility] 02-08-2022 08:54-0400 Respiratory rate 18 /min Feng Jose [facility] 02-08-2022 08:54-0400 Systolic blood pressure 149 mm[Hg] Feng Jose [facility] 05-22-2021 17:25-0500 Body height 167.64 cm Magaly Ginty Other [facility] Other 05-22-2021 17:25-0500 Body mass index (BMI) [Ratio] 19.75 kg/m2 Magaly Ginty Other [facility] Other 05-22-2021 17:25-0500 Body temperature 99 [degF] Magaly Ginty Other [facility] Other 05-22-2021 17:25-0500 Body weight 55.52 kg Magaly Ginty Other [facility] Other 05-22-2021 17:25-0500 Diastolic blood pressure 94 mm[Hg] Magaly Ginty Other [facility] Other 05-22-2021 17:25-0500 Respiratory rate 18 /min Magaly Ginty Other [facility] Other 05-22-2021 17:25-0500 SaO2% (BldA) [Mass fraction] 100 % Magaly Kerr Other [facility] Other 05-22-2021 17:25-0500 Systolic blood pressure 141 mm[Hg] Magaly Kerr Other [facility] Other Encounters Encounter Date Encounter Type Care Provider Facility Start: 05-22-2024 End: 05-22-2024 ambulatory [facility] Start: 05-22-2024 End: 05-22-2024 Subsequent hospital visit by physician Rusty Yadav MD Work Phone: [facility] Comment on above: Abnormal celiac anti body panel Start: 05-21-2024 End: 05-21-2024 ambulatory Jose Paulino MD Work Phone: Gastroenterology Comment on above: Bruising/Pains Start: 05-21-2024 End: 05-21-2024 Telephone encounter Jose Paulino MD Work Phone: Gastroenterology Comment on above: Patient Update; Melany ent Question Start: 05-11-2024 End: 05-11-2024 ambulatory LOR DAVIS Facility:[facility] Start: 05-08-2024 End: 05-08-2024 ambulatory [facility] Facility:[facility] Start: 05-04-2024 End: 05-04-2024 Orders Only Aurelia Franco RN [facility] Comment on above: Liver disease (Prima ry Dx) Start: 05-01-2024 End: 05-01-2024 Orders Only Shatnell Traore RN [facility] Comment on above: Disease of liver (Pr imary Dx) Start: 04-16-2024 End: 04-16-2024 ambulatory Jose Paulino MD Work Phone: Gastroenterology Comment on above: Recent test results for biopsy Start: 04-16-2024 End: 04-16-2024 Telephone encounter Jose Paulino MD Work Phone: Gastroenterology Comment on above: Results Start: 04-13-2024 End: 04-13-2024 Clinisync Result Encounter Generic External Data Provider [facility] External Department Unsolicited Start: 04-13-2024 End: 04-13-2024 Clinisync Result Encounter Generic External Data Provider [facility] External Department Unsolicited Start: 04-13-2024 End: 04-13-2024 ambulatory CHACORTA LU Facility:[facility] Start: 04-06-2024 End: 04-06-2024 ambulatory Jose Paulino MD Work Phone: Gastroenterology Comment on above: Liver disease (Prima ry Dx) Start: 04-06-2024 End: 04-06-2024 Telemedicine consultation with patient Jose Paulino MD Work Phone: Gastroenterology Start: 02-04-2024 End: 02-06-2024 ambulatory [facility] Start: 03-14-2022 End: 03-15-2022 ambulatory [facility] Start: 03-14-2022 End: 03-14-2022 Patient encounter procedure Domenico Daugherty [facility] Start: 02-08-2022 End: 02-08-2022 Emergency department patient visit Feng Jose [facility] Start: 02-08-2022 End: 02-08-2022 Emergency department patient visit Feng Jose [facility] Start: 05-22-2021 End: 05-22-2021 ambulatory Magaly Ginty Other [facility] Other Start: 05-22-2021 Office outpatient visit 15 minutes Magaly Ginty [facility] Procedures Date Procedure Procedure Detail Performing Clinician Start: 05-22-2024 Esophagogastroduodenoscopy Rusty brito MD Work Phone: Start: 05-22-2024 Urine test visual color cmprsn meths Katlin Currie MAPPER - CERTIFIED MEDICAL CODER Work Phone: Start: 04-13-2024 [facility] PT [facility] PPP Generic External Data Provider Start: 09-20-2021 Microscopic observation [Identifier] in Cervix by Cyto stain Generic Provider Laboratory test result abnormal Magaly Kerr Other Plan of Treatment Date Care Activity Detail Author Start: 09-20-2024 Screening for malignant neoplasm of cervix [facility] Start: 08-05-2024 End: 08-05-2024 ambulatory 08/05/2024 8:25 AM EST [facility] [address] [id number] Jose Paulino MD [address] [place], [place] [id number] 3m f/u Gastroenterology Comment on above: 3m f/u Start: 05-22-2024 End: 05-22-2024 Esophagogastroduodenoscopy transoral diagnostic ESOPHAGOGASTRODUODENOSCOPY Abnormal celiac antibody panel 05/22/2024 9:40 AM EST [facility] Start: 05-15-2024 End: 05-15-2024 ambulatory 05/15/2024 9:30 AM EST Results Only [facility] [address] [place] [address] [facility] Start: 05-11-2024 End: 05-11-2024 Admission to same day surgery center 05/11/2024 2:54 PM EST - 05/11/2024 4:46 PM EST Surgery [facility] [address] [place] [address] [employer] [address] [place] [address] [employer]SCATHETER [employer]OP[employer] [facility] Comment on above: TRANSCATHETER BIOPSY Start: 05-11-2024 Subsequent hospital visit by physician 05/11/2024 2:54 PM EST Hospital Encounter [facility] [address] [place] [address] [employer] [address] [place] [address] Liver disease [K76.9] [facility] Comment on above: Liver disease [K76.9] Start: 05-11-2024 End: 05-11-2024 Transcatheter biopsy TRANSCATHETER BIOPSY Liver disease 05/11/2024 2:54 PM EST [facility] Start: 05-11-2024 End: 08-10-2024 CBC W Auto Differential panel - Blood COMPLETE BLOOD COUNT AND DIFFERENTIAL Lab STAT Liver disease Expected: 05/11/2024 (Approximate), Expires: 08/10/2024 [facility] Work Phone: Comment on above: Expected: 05/11/2024 (Approximate), Expi res: 08/10/2024 Start: 05-11-2024 End: 08-10-2024 PT panel - Platelet poor plasma by Coagulation assay PROTHROMBIN TIME Lab STAT Liver disease Expected: 05/11/2024 (Approximate), Expires: 08/10/2024 [facility] Comment on above: Expected: 05/11/2024 (Approximate), Expi res: 08/10/2024 Start: 05-08-2024 End: 08-07-2024 Comprehensive metabolic 2000 panel - Serum or Plasma COMPREHENSIVE METABOLIC PANEL Lab Routine Disease of liver Expected: 05/08/2024, Expires: 08/07/2024 [facility] Work Phone: Comment on above: Expected: 05/08/2024, Expires: Start: 05-08-2024 End: 05-08-2024 ambulatory 05/08/2024 9:30 AM EST Results Only [facility] [address] [place] [address] [facility] Start: 04-13-2024 End: 04-13-2024 ambulatory 04/13/2024 10:15 AM EDT Results Only [facility] [address] [place] [address] [facility] Start: 04-06-2024 End: 07-06-2024 CBC panel - Blood by Automated count COMPLETE BLOOD COUNT Lab Routine Liver disease Expected: 04/06/2024, Expires: 07/06/2024 [facility] Work Phone: Comment on above: Expected: 04/06/2024, Expires: Start: 04-06-2024 End: 07-06-2024 PT panel - Platelet poor plasma by Coagulation assay PROTHROMBIN TIME Lab Routine Liver disease Expected: 04/06/2024, Expires: 07/06/2024 [facility] Comment on above: Expected: 04/06/2024, Expires: Start: 03-01-2024 COVID-19 Vaccine ( season) COVID-19 Vaccine () [facility] Start: 03-01-2024 Covid-19 Vaccine ( season) Covid-19 Vaccine () [facility] Start: 03-01-2024 Influenza vaccination Influenza Vaccine (#1) [facility] Start: 01-30-2024 Influenza vaccination Flu vaccine (#1) [facility] Start: 2015 Screening for malignant neoplasm of cervix [facility] Start: 11-24-2011 Screening for malignant neoplasm of cervix Cervical Cancer Screening [facility] Start: 2006 Screening for malignant neoplasm of cervix Pap smear [facility] Start: 01-20-2004 DTaP/Tdap/Td vaccine (1 - Tdap) DTaP/Tdap/Td vaccine (1 - Tdap) [facility] Start: 01-20-2004 Hepatitis B Vaccine (1 of 3 - 19+ 3-dose series) Hepatitis B Vaccine (1 of 3 - 19+ 3-dose series) [facility] Start: 01-20-2004 Urine microalbumin profile DTaP,Tdap,Td Vaccine (1 - Tdap) [facility] Start: 2003 Anxiety Screening Anxiety Screening [facility] Start: 2003 Depression Screening Depression Screening [facility] Start: 01-20-2000 HIV screening HIV screen [facility] Start: 1998 Varicella vaccine (1 of 2 - 13+ 2-dose series) Varicella vaccine (1 of 2 - 13+ 2-dose series) [facility] Start: 1997 Depression Screen Depression Screen [facility] Start: 1991 Pneumococcal 0-64 years Vaccine (1 of 2 - PCV) Pneumococcal 0-64 years Vaccine (1 of 2 - PCV) [facility] End: 05-22-2024 INITIATE PACU OXYGEN THERAPY PROTOCOL Initiate PACU Oxygen Therapy Protocol Respiratory Care Routine Continuous until discontinued starting 05/22/2024 [facility] Work Phone: Comment on above: Continuous until discontinued starting 1 07/22/2023 Oxygen therapy [[facility] Data Set] Initiate Oxygen Therapy Protocol Respiratory Care Routine As Needed until discontinued starting 05/22/2024 [facility] Comment on above: As Needed until discontinued starting Pathology study Surgical Patholo gy Lab Routine Abnormal celiac antibody panel Release Upon Ordering for 1 Occurrences starting 05/22/2024 [facility] Comment on above: Release Upon Ordering for 1 Occurrences starting 05/22/2024 RF Guidance for medeiros sjugular biopsy of Liver-- W contrast IV IR TRANSJUGULAR LIVER BX W/PRESS Radiology Routine Liver disease Ordered: 04/06/2024 [facility] Comment on above: Ordered: 04/06/2024 Payers Date Payer Category Payer Medicaid ANTHEM MEDICAID ANTHEM [employer] MEDICA[place] OF [place] [id number] 2022-Present [phone] [address] [place] [address] Medicaid [id number] 2022 Medicaid [id number] 2022 Unknown [id number] 2022 Unknown [id number] 1985 Unknown [id number] 1985 Unknown [id number] 1985 Unknown [id number] 1985 Unknown [id number] 1985 Unknown [id number] Social History Date Type Detail Facility Unknown if ever smoked [facility] [employer] Other Start: 04-04-2021 End: 05-22-2024 Sex Assigned At [facility] [employer] [facility] [employer] Other Start: 02-08-2022 Tobacco smoking status Heavy tobacco smoker (finding) [facility] Start: 04-04-2021 End: 05-18-2024 Tobacco smoking status NHIS Smokes tobacco daily [facility] Work Phone: History of tobacco use Cigarette Smoker C [facility] Start: 04-04-2021 Alcoholic beverage intake Current drinker of alcohol (finding) [facility] Start: 04-04-2021 End: 05-22-2024 History of Social function [facility] Adult Depression Screening Assessment 2 [facility] Start: 04-04-2021 Alcohol Comment Beer, occas [facility] Start: 1985 Sex assigned at Female [facility] Start: 04-04-2021 Gender identity Identifies as female gender (finding) [facility] Start: 04-04-2021 Sexual orientation Heterosexual (finding) [facility] Tobacco smoking stat us NHIS Tobacco smoking consumption unknown [facility] Start: 1985 Sex assigned at Not on file [facility] Start: 05-18-2024 Tobacco use and exposure Smokeless tobacco non-user [facility] Start: 05-22-2024 Alcoholic beverage intake Ex-drinker (finding) [facility] Functional Status Date Assessment Result Facility 02-08-2022 Functional Status N/A [facility] Clinical Notes 05-22-2021 to 05-22-2024 Brooke Esparza RN - 05/22/2024 10:45 AM Viola Berry RN - 05/18/2024 4:24 PM ESTDischarge InstructionsTelephone Encounter - Luzma Gaxiola RN - 05/21/2024 8:26 AM EST Note Date & Type Note Facility 05-22-2024 History of Presen t illness Narrative Discharge Criteria Inpatients must meet Criteria 1 through 7. All other patients are either YES or N/A. If a NO is chosen then Anesthesia or Surgeon must be notified. 1. Minimum 30 minutes after last dose of sedative medication. Yes 2. Systolic BP between 90 - 160. Diastolic BP between 60 - 90. Yes 3. Pulse between 60 - 120 Yes 4. Respirations between 8 - 25. Yes 5. SpO2 92% - 100%. Yes 6. Able to cough and swallow or return to baseline function. Yes 7. Alert and oriented or return to baseline mental status. Yes 8. Demonstrates controlled, coordinated movements, ambulates with steady gait, or return to baseline activity function. Yes 9. Minimal or no pain or nausea, or at a level tolerable and acceptable to patient. Yes 10. Takes and retains oral fluids as allowed. Yes 11. Procedural / perioperative site stable. Minimal or no bleeding. Yes 12. If GI endoscopy procedure, minimal or no abdominal distention or passing flatus. Yes 13. Written discharge instructions and emergency telephone number provided. Yes 14. Accompanied by a responsible adult. Yes Patient is scheduled for an EGD with Dr. Yadav. NPO status (including no gum, hard candy, mints, water, coffee, or smoking) was reviewed and patient verbalizes understanding. Patient instructed on the pre-operative, intra-operative, and post-operative process. Medication instructions and pre operative instruction sheet reviewed with the patient. Patient denies any fever related illnesses or antibiotic use in the last 4 weeks. documented in this encounter [facility] 05-22-2024 Hospital Discharg e instructions Brooke Esparza RN - 05/22/2024 10:28 AM EST SAME DAY SURGERY DISCHARGE INSTRUCTIONS 1. Do not drive or operate hazardous machinery for 24 hours. 2. Do not make important personal or business decisions for 24 hours. 3. Do not drink alcoholic beverages for 24 hours. 4. Do not smoke tobacco products for 24 hours. 5. Eat light foods (Jell-O, soups, etc....) and drink plenty of fluids (water, Sprite, etc...) up to 8 glasses per day, as you can tolerate. 6. Limit your activities for 24 hours. Do not engage in heavy work until your surgeon gives you permission. 7. Call your surgeon for any questions regarding your surgery. 8. Patient should not be left alone for 12-24 hours following surgical procedure. ENDOSCOPY DISCHARGE INSTRUCTIONS: You may have a mild sore throat; this should get better over the next day or two. Sipping warm liquids, a salt-water gargle or throat lozenges may be used. You may have some belching or a feeling of fullness in your abdomen. This is from air that was put into your stomach during the procedure. This should pass in a few hours. May resume your regular diet. You will receive a letter or phone call with your test results in 2 weeks. If you have not received a letter or a phone call in 2 weeks please call the office for your results. CALL THE DOCTOR IF YOU HAVE: Chest pain or trouble breathing. A hoarse voice or trouble swallowing Bleeding, vomiting or spitting up of blood that is more than a few streaks or red or black stools A fever above 101F or if you have chills Pain that is worse or different than any pain you had before the procedure Nausea or vomiting that lasts for more than 2 hours. If symptoms are to severe call 911 or go to the nearest Emergency Room. documented in this encounter [facility] 05-21-2024 Telephone encount er Note Pt sent the following mcm: I've recently experienced bruising horribly all over my legs without injuring involved. I've also been experiencing pains in my right ribs cage all the way down, middle of sternum area and chest pains. No shortness of breath. My legs have been aching horribly as well. Following up with dining room host on Jun.01 to hopefully start injections for the itching bc the cream they prescribed me is not helping and it's been the same. Severe, especially at night. It's not allowing me to attach photos. I was wanting to send of my legs. My body scarring from the rash as well too. They are on my buttocks as well the rash and scarring from itching. No other extremities except, legs, upper and lower back, chest, stomach, and buttocks. Nurse advised: -We will forward the images and update to Dr. Paulino I always recommend going to the ER or urgent care when new or worsening symptoms occur, especially with chest pain involved. It is best to be evaluated by a provider in person to rule out any other causes of the chest pain and other symptoms. It also looks like your liver biopsy resulted, we will also let him know of this in order for him to review it Pictures attached under scanned docs (Patient entered attachments) Luzma Gaxiola RN May 21, 2024 8:27 AM [facility] 05-21-2024 Miscellaneous Notes Formattin g of this note might be different from the original. Pt sent the following mcm: I've recently experienced bruising horribly all over my legs without injuring involved. I've also been experiencing pains in my right ribs cage all the way down, middle of sternum area and chest pains. No shortness of breath. My legs have been aching horribly as well. Following up with dining room host on Jun.01 to hopefully start injections for the itching bc the cream they prescribed me is not helping and it's been the same. Severe, especially at night. It's not allowing me to attach photos. I was wanting to send of my legs. My body scarring from the rash as well too. They are on my buttocks as well the rash and scarring from itching. No other extremities except, legs, upper and lower back, chest, stomach, and buttocks. Nurse advised: -We will forward the images and update to Dr. Paulino I always recommend going to the ER or urgent care when new or worsening symptoms occur, especially with chest pain involved. It is best to be evaluated by a provider in person to rule out any other causes of the chest pain and other symptoms. It also looks like your liver biopsy resulted, we will also let him know of this in order for him to review it Pictures attached under scanned docs (Patient entered attachments) Luzma Gaxiola RN May 21, 2024 8:27 AM documented in this encounter [facility] 05-21-2024 Telephone encount er Note Update sent to Dr. Paulino via phone encounter. Luzma Gaxiola RN [facility] 05-21-2024 Miscellaneous Notes Formattin g of this note might be different from the original. Update sent to Dr. Paulino via phone encounter. Luzma Gaxiola RN documented in this encounter [facility] 04-16-2024 Telephone encount er Note Patient updated Luzma Gaxiola RN [facility] 04-16-2024 Miscellaneous Notes Formattin g of this note might be different from the original. Patient updated Luzma Gaxiola RN Luzma, Please let her know we got lab tests to be sure it is safe to do liver biopsy. These tests are normal. She should proceed with liver biopsy scheduled inMay and call me 3-4 days after for a report. Thanks Jose Paulino MD Pt sent mcm asking you to look over recent blood work Luzma Gaxiola RN April 16, 2024 2:18 PM documented in this encounter [facility] 04-16-2024 Telephone encount er Note Luzma, Please let her know we got lab tests to be sure it is safe to do liver biopsy. These tests are normal. She should proceed with liver biopsy scheduled inMay and call me 3-4 days after for a report. Thanks Jose Paulino MD [facility] Work Phone: 04-16-2024 Telephone encount er Note Pt sent mcm asking you to look over recent blood work Luzma Gaxiola RN April 16, 2024 2:18 PM [facility] 04-16-2024 Telephone encount er Note Question sent to Dr. Paulino via phone encounter. Luzma Gaxiola RN [facility] 04-16-2024 Miscellaneous Notes Formattin g of this note might be different from the original. Question sent to Dr. Paulino via phone encounter. Luzma Gaxiola RN documented in this encounter [facility] 04-06-2024 Note HNO ID: [id number] Author: JOSE PAULINO MD Service: ? Author Type: Physician Type: Progress Notes Filed: 04/06/2024 13:53 Note Text: Virtual visit with patient consent myChart/Zoom Several years of arthralgia, feeling poorly, low energy. 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 Troponin 3 Hr. Troponin 6 Hr. Troponin 9 Hr. XR Chest Single View Future Appointments Appointment Date:03/14/2022 09:00:00 AM Scheduled Provider: Location:FT.CARDIO Appointment Type:CV Holter/Event (FT) [facility]08-11-2022 Hospital Discharge instructions Patient Education 02/08/2022 11:26:01 Palpitations Palpitations Palpitations are feelings that your heartbeat is irregular or is faster than normal. It may feel like your heart is fluttering or skipping a beat. Palpitations are usually not a serious problem. Theymay be caused by many things, including smoking, caffeine, alcohol, stress, and certain medicines or drugs. Most causes of palpitations are not serious. However, some palpitations can be a sign of a serious problem. You may need further tests to rule out serious medical problems. Follow these instructions at home: Pay attention to any changes in your condition. Take these actions to help manage your symptoms: Eating and drinking Avoid foods and drinks that may cause palpitations. These may include: ?Caffeinated coffee, tea, soft drinks, diet pills, and energy drinks. ?Chocolate. ?Alcohol. Lifestyle Take steps to reduce your stress and anxiety. Things that can help you relax include: ?Yoga. ?Mind-body activities, such as deep breathing, meditation, or using words and images to create positive thoughts (guided imagery). ?Physical activity, such as swimming, jogging, or walking. Tell your health care provider if your palpitations increase with activity. If you have chest pain or shortness of breath with activity, do not continue the activity until you are seen by your health care provider. ?Biofeedback. This is a method that helps you learn to use your mind to control things in your body, such as your heartbeat. Do not use drugs, including cocaine or ecstasy. Do not use marijuana. Get plenty of rest and sleep. Keep a regular bed time. General instructions Take doam-uqk-fgymmho and prescription medicines only as told by your health care provider. Do not use any products that contain nicotine or tobacco, such as cigarettes and e-cigarettes. If you need help quitting, ask your health care provider. Keep all follow-up visits as told by your health care provider. This is important. These may include visits for further testing if palpitations do not go away or get worse. Contact a health care provider if you: Continue to have a fast or irregular heartbeat after 24 hours. Notice that your palpitations occur more often. Get help right away if you: Have chest pain or shortness of breath. Have a severe headache. Feel dizzy or you faint. Summary Palpitations are feelings that your heartbeat is irregular or is faster than normal. It may feel like your heart is fluttering or skipping a beat. Palpitations may be caused by many things, including smoking, caffeine, alcohol, stress, certain medicines, and drugs. Although most causes of palpitations are not serious, some causes can be a sign of a serious medical problem. Get help right away if you faint or have chest pain, shortness of breath, a severe headache, or dizziness. This information is not intended to replace advice given to you by your health care provider. Make sure you discuss any questions you have with your health care provider. Document Released: 06/14/2001 Document Revised: 07/30/2018 Document Reviewed: 07/30/2018 [employer] Patient Education 2020 [employer]. Follow Up Care 02/08/2022 08:54:11 With:Mustapha Wooten Address: [address] [place] [phone] Business (1) When:02/11/2022 11:11:42 With:ANAND EDWARDS Address: [address] [place] [address]- Business (1) When:Within 3 Day(s) [facility]11-22-2021 Evaluation note* Encounter Date Diagnosis Assessment Notes Treatment Notes Treatment Clinical Notes May, Tooth abscess (ICD-10 - K04.7) Discussed diagnosis with patient and instructed to start ATB immediately. Will send in rx for Amoxicilin and Viscous Lidocaine. Advised to take as directed, finish entire course, take with food and plenty of water. Allergies and recent antibiotic reviewed. Encouraged warm salt water gargles. Ice to swelling and/or warm compresses prn for pain, ice for 10-20 minutes at a time, ensure thin cloth barrier between skin. Advised to call dentist today and to let dentist know she has an abscessed tooth. Stressed to patient that she needs to follow up with dentist, states she has f/u Saturday AM. Discussed S/S of worsening infection and instructed she should seek immediate evaluation in the ER if she develops any. Seek re-evaluation if no improvement after 48 hours on ATB. Patient verbalized understanding and agrees with treatment plan [facility] Other Evaluation note* Diagnosis Liver disease- Primary Unspecified disorder of liver [facility] Diagnosis Disease of liver- Primary Unspecified disorder of liver Liver disease Unspecified disorder of liver [facility] Diagnosis Liver disease- Primary Unspecified disorder of liver Liver disease Unspecified disorder of liver [facility]* Diagnosis Abnormal celiac antibody panel Other and unspecified nonspecific immunological findings Abnormal blood chemistry test Other abnormal blood chemistry Primary biliary cholangitis (HCC) documented in this encounter Wes Sharma [facility] general Narrative - Reported* Type Description Date Medical History fibromyalgia Surgical History broken ankle and skin graft 199 3 Hospitalization History see above [facility] Other Hospital course Narrative No data available for this section [facility] No data available for this section [facility] No data available for this section [facility] Summary Purpose Family History No Family History Records FoundNo Family History Records FoundNo Family History Records FoundNo Family History Records FoundNo Family History Records Found Advance Directives No Advanced Directives Records FoundNo Advanced Directives Records FoundNo Advanced Directives Records FoundNo Advanced Directives Records FoundNo Advanced Directives Records Found Additional Source Comments INFORMATION SOURCE (unrecogn ized section and content) DATE CREATED AUTHOR 08/23/2021 [facility] DATE CREATED AUTHOR AUTHOR'S ORGANIZ ATION 05/05/2022 [facility] DATE CREATED AUTHOR AUTHOR'S ORGANIZ ATION 02/08/2024 [facility] DATE CREATED AUTHOR AUTHOR'S ORGANIZ ATION 05/22/2024 [facility] DATE CREATED AUTHOR AUTHOR'S ORGANIZ ATION 05/30/2024 [facility] Sh[facility]a araujo REASON FOR VISIT (unrecogniz ed section and content) Reason Comments Liver Disease Specialty Diagnoses / Procedures Referred By Violette t Referred To Contact Diagnoses Elevated liver enzymes SUSAN positive Procedures AMB EXTERNAL REFERRAL TO HEPATOLOGY Kamila Durant, [place] [address] [address] Ginny Aaron MD [address] [place] [address] Referral ID Status Reason Start Date Expiration Date V isits Requested Visits Authorized [id number] Outside PCP 02/06/2024 08/04/2024 1 1 Reason Comments Results Reason Comments Patient Update Patient Question Specialty Diagnoses / Procedures Referred By Violette pulliam Referred To Contact Diagnoses Abnormal celiac antibody panel Abnormal celiac antibody panel [R89.4] Procedures ID ESOPHAGOGASTRODUODENOSCOPY TRANSORAL DIAGNOSTIC ID EGD TRANSORAL BIOPSY SINGLE/MULTIPLE ID EGD BALLOON DILATION ESOPHAGUS <30 MM DIAM ESOPHAGOGASTRODUODENOSCOPY Rusty Yadav MD [address] [place] [id number] [facility] [address] [place] [address] Referral ID Status Reason Start Date Expiration Date Visits Re quested Visits Authorized [id number] 1 1 Care Team (unrecognized sect ion and content) College Counselor Relationship Specialty Start Date End Date Chacorta Lu APRN [address] [place] [address] PCP - General Family Medicine 03/14/20 Chacorta Lu APRN [address] [place], [place] [id number] Referring Family Medicine 03/14/20 Kamila Durant CNP [address] [place] [address] Occupational Medicine 02/06/24 College Counselor Relationship Specialty Start Date End Date Nguyen Nieto MD [address] [place] [address] PCP - General Family Medicine 11/06/22 Anand Edwards NP [address] [place] [address] PCP - PANDA ABBASI 09/30/23 College Counselor Relationship Specialty Start Date End Date Chacorta Lu APRN [address] [place] [address] PCP - General Family Medicine 03/14/20 Chacorta Lu APRN [address] [place] [address] Referring Family Medicine 03/14/20 Kamila Durant CNP [address] [place] [address] Occupational Medicine 02/06/24 College Counselor Relationship Specialty Start Date End Date Chacorta Lu APRN [address] [place] [address] PCP - General Family Medicine 03/14/20 Chacorta Lu APRN [address] [place] [address] Referring Family Medicine 03/14/20 Kamila Durant CNP [address] [place] [address] Occupational Medicine 02/06/24 College Counselor Relationship Specialty Start Date End Date Ashley Issa NP [address] [place] [address] PCP - General Nurse Practitioner 04/17/24 Chacorta Lu APRN [address] [place] [address] Referring Family Medicine 03/14/20 Kamila Durant CNP [address] [place] [address] Occupational Medicine 02/06/24 College Counselor Relationship Specialty Start Date End Date Ashley Issa NP [address] [place] [id number] PCP - General Nurse Practitioner 04/17/24 Chacorta Lu APRN [address] [place] [address] Referring Family Medicine 03/14/20 Kamila Durant CNP [address] [place] [address] Occupational Medicine 02/06/24 College Counselor Relationship Specialty Start Date End Date Ashley Issa NP [address] [place] [address] PCP - General Nurse Practitioner 04/17/24 Chacorta Lu APRN [address] [place] [address] Referring Family Medicine 03/14/20 Kamila Durant CNP [address] [place] [address] Occupational Medicine 02/06/24 College Counselor Relationship Specialty Start Date End Date Ashley Issa APRN - [employer] [address] [place] [address] PCP - General Nurse Practitioner 02/04/24 Source Comments (unrecognize d section and content) In the event this informatio n is protected by the Federal Confidentiality of Alcohol and Drug Abuse Patient Records regulations: The Federal rules restrict any use of the information to criminally investigate or prosecute any alcohol or drug abuse patient.[facility] the event this information is protected by the Federal Confidentiality of Alcohol and Drug Abuse Patient Records regulations: The Federal rules restrict any use of the information to criminally investigate or prosecute any alcohol or drug abuse patient.[facility] the event this information is protected by the Federal Confidentiality of Alcohol and Drug Abuse Patient Records regulations: The Federal rules restrict any use of the information to criminally investigate or prosecute any alcohol or drug abuse patient.[facility] the event this information is protected by the Federal Confidentiality of Alcohol and Drug Abuse Patient Records regulations: The Federal rules restrict any use of the information to criminally investigate or prosecute any alcohol or drug abuse patient.[facility] the event this information is protected by the Federal Confidentiality of Alcohol and Drug Abuse Patient Records regulations: The Federal rules restrict any use of the information to criminally investigate or prosecute any alcohol or drug abuse patient.[facility] the event this information is protected by the Federal Confidentiality of Alcohol and Drug Abuse Patient Records regulations: The Federal rules restrict any use of the information to criminally investigate or prosecute any alcohol or drug abuse patient.[facility] the event this information is protected by the Federal Confidentiality of Alcohol and Drug Abuse Patient Records regulations: The Federal rules restrict any use of the information to criminally investigate or prosecute any alcohol or drug abuse patient.[facility] Scheduled Active and Recently Administ ered Medications (unrecognized section and content) Medication Order 05/20/2024 05/21/2024 05/22/2024 sodium chloride flush 0.9 % injection 5-40 mL 5-40 mL, IntraVENous, EVERY 12 HOURS SCHEDULED (2 times per day), First dose on Sat05/22/24 at 1045, Until Discontinued, For Line Patency: Peripheral IV = 5 mL; Midline or Central Line = 10 mL/lumen. If following IV push medication, administer flush at same rate as the IV push. Flush volume is determined by type of infusion therapy being given. For non-viscous solutions use: Peripheral IV = 5 mL Midline or Central Line = 10 mL/lumen For viscous solutions (i.e. blood components, parenteral nutrition, contrast media, or after obtaining blood sample) use: Peripheral IV = 10 mL Midline or Central Line = 20 mL/lumen, PACU only 1045 (Due)2100 (Due) sodium chloride flush 0.9 % injection 5-40 mL 5-40 mL, IntraVENous, EVERY 12 HOURS SCHEDULED (2 times per day), First dose on Sat05/22/24 at 1045, Until Discontinued, For Line Patency: Peripheral IV = 5 mL; Midline or Central Line = 10 mL/lumen. If following IV push medication, administer flush at same rate as the IV push. Flush volume is determined by type of infusion therapy being given. For non-viscous solutions use: Peripheral IV = 5 mL Midline or Central Line = 10 mL/lumen For viscous solutions (i.e. blood components, parenteral nutrition, contrast media, or after obtaining blood sample) use: Peripheral IV = 10 mL Midline or Central Line = 20 mL/lumen, Pre-op (day of surgery) 1045 (Due)2100 (Due) PRN Medication Order 05/20/2024 05/21/2024 05/22/2024 0.9 % sodium chloride infusion IntraVENous, at 5-250 mL/hr, PRN, if patient receiving piggyback infusions and maintenance fluids are not ordered, Starting on Sat05/22/24 at 1018, For piggyback infusion, administer at same rate as piggyback for a total of 25 mL. Enter 25 mL into dose field and piggyback rate into rate field of order. If piggyback is infusing at a rate less than 100 mL/hr, enter 25 mL into dose field and 100 mL/hr into rate field of order., PACU only 0.9 % sodium chloride infusion IntraVENous, at 5-250 mL/hr, PRN, if patient receiving piggyback infusions and maintenance fluids are not ordered, Starting on Sat05/22/24 at 1018, For piggyback infusion, administer at same rate as piggyback for a total of 25 mL. Enter 25 mL into dose field and piggyback rate into rate field of order. If piggyback is infusing at a rate less than 100 mL/hr, enter 25 mL into dose field and 100 mL/hr into rate field of order., Pre-op (day of surgery) naloxone 0.4 mg in 10 mL sodium chloride syringe IntraVENous, PRN, Opioid Reversal, Starting on Sat05/22/24 at 1018, PRN if respiratory rate is less than 6/min and patient is difficult to arouse then notify physician STAT. Mix 9 mL of sodium chloride 0.9% with 0.4 mg (1 mL) of naloxone (NARCAN) in 10 mL syringe. (Note: dilution is 0.04 mg/mL) Give 0.08 mg (2 mL of special dilution), slow IV push, repeat up to 0.4 mg (10 mL) or until patient is responsive to physical stimulation and respiratory rate is equal to or greater than 6 breaths/min. Continue to observe, if no response within 3 minutes of administration of 0.4 mg (10 mL) total, repeat dose (0.4 mg as administered previously). Concentration 0.04 mg/mL, PACU only sodium chloride flush 0.9 % injection 5-40 mL 5-40 mL, IntraVENous, PRN, Starting on Sat05/22/24 at 1018, Until Discontinued, Line Care, After every IV line use, For Line Patency: Peripheral IV = 5 mL; Midline or Central Line = 10 mL/lumen. If following IV push medication, administer flush at same rate as the IV push. Flush volume is determined by type of infusion therapy being given. For non-viscous solutions use: Peripheral IV = 5 mL Midline or Central Line = 10 mL/lumen For viscous solutions (i.e. blood components, parenteral nutrition, contrast media, or after obtaining blood sample) use: Peripheral IV = 10 mL Midline or Central Line = 20 mL/lumen, PACU only sodium chloride flush 0.9 % injection 5-40 mL 5-40 mL, IntraVENous, PRN, Starting on Sat05/22/24 at 1018, Until Discontinued, Line Care, After every IV line use, For Line Patency: Peripheral IV = 5 mL; Midline or Central Line = 10 mL/lumen. If following IV push medication, administer flush at same rate as the IV push. Flush volume is determined by type of infusion therapy being given. For non-viscous solutions use: Peripheral IV = 5 mL Midline or Central Line = 10 mL/lumen For viscous solutions (i.e. blood components, parenteral nutrition, contrast media, or after obtaining blood sample) use: Peripheral IV = 10 mL Midline or Central Line = 20 mL/lumen, Pre-op (day of surgery) FOR RECORDS PERTAINING TO PATIENTS WHO ARE OR HAVE BEEN ENROLLED IN A CHEMICAL DEPENDENCY/SUBSTANCEABUSE PROGRAM, SOME INFORMATION MAY BE OMITTED. This clinical summary was aggregated from multiple sources. Caution should be exercised in using it in the provision of clinical care. This summary normalizes information from multiple sources, and as a consequence, information in this document may materially change the coding, format and clinical context of patient data. In addition, data may be omitted in some cases. CLINICAL DECISIONS SHOULD BE BASED ON THE PRIMARY CLINICAL RECORDS. [facility]. provides no warranty or guarantee of the accuracy or completeness of information in this document.
== END 2024-06-15 13:17 | disposition home or self-care (01) ==
PROVIDERS: Emergency Provider Emergency Medicine; PCP Nurse Practitioner
DX: S80.02XA Contusion of left knee, initial encounter (principal); V49.49XA Driver injured in collision with other motor vehicles in traffic accident, initial encounter
CPT/HCPCS: 73562; 99283

== ENCOUNTER 2025-06-18 17:58 | Emergency (ER) | payer MEDICAID, SELFPAY ==
--- OUTSIDE RECORDS SUMMARY | 2025-01-28 05:15 | XMS_ITS ---
Author Organization [facility] vices Address [address] [place] [id number] Care Team Providers Care Green Chain Worker Name Role Phone Brandi Maciel Primary Care Provider REASON FOR VISIT 4w anxiety, abdomen pain Social History Sex Assigned At : Social History Observation Description Sex Assigned At Female Encounters Encounter Location Date Provider Diagnosis East [address] [place] [phone] 01/28/2025 Brandi Maciel Plan Of Treatment Next Appt Details Provider Name:Brandi subramanian, 09/13/2025 10:00:00 AM, [address] [place] [address], [id number], Progress Notes * Casandra QUINTERODOB: [birth year] (40 yo F)Acc No.[id number]:01/28/2025 Medical Note Patient: Lucille staffordCasandra lambert :?Brandi Maciel APRN, FNP-CDOB:1985???Age: 40 Y???Sex:FemaleDate:01/28/2025Phone:[phone]:[address] [place] [phone] Subjective: * Chief Complaints: * 4 w anxiety, abdomen pain Billing Information: * Procedure Codes: * Electronic signature of ANUP Alvarez on 06/18/2025 at 06:42 PM EST Sign off status: Pending * Provider: Darlin Maciel APRN, FNP-Narciso Date: 0 01/28/2025 Generated for Printing/Faxing/eTransmitting on:?06/18/2025 06:42 PM EST
--- OUTSIDE RECORDS SUMMARY | 2025-03-15 03:45 | XMS_ITS ---
Author Organization [facility] vices Address [address] [place], [place] [id number] Care Team Providers Care Operations Advisor Name Role Phone Brandi Maciel Primary Care Provider [phone] REASON FOR VISIT f/u depression (med refills), referral to derm for skin biopsy Social History Sex Assigned At : Social History Observation Description Sex Assigned At Female Encounters Encounter Location Date Provider Diagnosis East [address] [place] [phone] 03/15/2025 Brandi Maciel Plan Of Treatment Next Appt Details Provider Name:Brandi subramanian, 09/13/2025 10:00:00 AM, [address] [place], [place], [phone], Progress Notes * Casandra QUINTERODOB: [birth year] (40 yo F)Acc No.[id number]:03/15/2025 Medical Note Patient: Lucille staffordCasandra lambert :?Brandi Maciel APRN, PHILOSOPHY FACULTY-CDOB:1985???Age: 40 Y???Sex:FemaleDate:03/15/2025Phone:[phone]:[address] [place] [phone] Subjective: * Chief Complaints: * F /u depression (med refills), referral to derm for skin biopsy Billing Information: * Procedure Codes: * Electronic signature of ANUP Alvarez on 06/18/2025 at 06:42 PM EST Sign off status: Pending * Provider: Darlin Maciel APRN, FNP-C Date: 0 03/15/2025 Generated for Printing/Faxing/eTransmitting on:?06/18/2025 06:42 PM EST
--- OUTSIDE RECORDS SUMMARY | 2025-06-07 05:00 | XMS_ITS ---
Author Organization [facility] vices Address [address] [place], [place] [id number] Care Team Providers Care Informatics Physician Name Role Phone Brandi Maciel Primary Care Provider [phone] Allergies No Known Allergies REASON FOR VISIT 2w cellulitis Medications Medication SIG (Take, Route, Frequency, Duration) Notes Start Date End Date Status predniSONE 5 MG Tablet 2 tablets AM, 2 tablets P M Oral; Duration: 30 days ActiveUrsodiol 300 MG Capsule3 capsules AM, 2 capsules PM Orally Twice a day ActiveTriamcinolone (oint)-SiliconeActiveNaproxen Sodium 275 MG Tablet1 tablet with food or milk as needed Orally every 12 hrs; Duration: 7 days05/24/2025 ActiveCephalexin 500 MG Capsule1 capsule Orally 3 times a day; Duration: 14 days 5ActiveEscitalopram Oxalate 10 MG Tablet1 tablet Orally Once a day; Duration: 90 days5ActivehydrOXYzine HCl 25 MG Tablet1 tablet as needed Orally three times a day; Duration: 90 daysActiveVitamin D3 125 MCG (5000 UT) Tablet1 tablet Orally Once a dayActiveOmeprazole 20 MG Capsule Delayed Release1 capsule 1/2 to 1 hour before morning meal Orally Once a day; Duration: 30 days 5ActiveAlbuterol Sulfate HFA 108 (90 Base) MCG/ACT Aerosol Solution1 puff as needed Inhalation every 4 hrs; Duration: 30 days5Active Collagen-Vitamin C-Biotin 500-50-0.8 MG Capsuleas directed OrallyActive Social History Sex Assigned At : Social History Observation Description Sex Assigned At Female Problems Problem Type SNOMED Code ICD Code Onset Dates Problem Status W/U Status Risk Notes Problem Gastroesophageal ref lux disease (578909000) GERD (gastroesophageal reflux disease) (K21.9) ActiveconfirmedProblemAsthma (855200100)Asthma (J45.909)Activeconfirmed Vital Signs Temperature 98.2 degrees Fahrenheit 06/07/20 25 Blood pressure systolic 124 mm Hg 06/07/20 25 Blood pressure diastolic 76 mm Hg 025 Heart Rate 113 /min 06/07/2025 Respiratory Rate 16 /min 06/07/2025 Height 66 in 06/07/2025 Weight 176 lbs 06/07/2025 BMI 28.4 kg/m2 06/07/2025 Oximetry 97 % 06/07/2025 Height-cm 167.64 cm 06/07/2025 Weight-kg 79.83 kg 06/07/2025 Yenni Calero 06/07/2025 10:12:34 AM EST > Encounters Encounter Location Date Provider Diagnosis [address] [phone] 06/07/2025 Brandi Maciel Cellulitis L03.90 ; GERD (gastroesophageal reflux disease) K21.9 and Asthma J45.909 Assessments Encounter Date Diagnosis (ICD Code) Assessment Notes Treatment Notes Treatment Clinical Notes Section Notes 06/07/2025 Cellulitis (ICD-10 - L03.90) Continue current antibiotic, complete treatment Keep areas clean and dry Make appointment with raul lynch Dr. Follow up prn 06/07/2025GERD (gastroesophageal reflux disease) (ICD-10 - K21.9) Pt was advised lifestyle modifications to help with GERD symptoms. Pt was advised to take smaller meals (less spicy and less fatty foods as much as possible). Pt was advised to cut down on alcohol and smoking. Pt was told to eat dinner at least 2 hours prior to going to bed and avoid recumbency right after eating any meal. Pt was told to elevate the head end of bed and to use pillows at night to prevent regurgitation. PVU. I will give trial of PPI x 3 months while pt tries lifestyle interventions and then stop it if symptoms resolve. SE of PPI discussed with pt. Follow with GI next month but it is okay to call and ask if they are okay with omeprazole. 5Asthma (ICD-10 - J45.909) Patient had a PFT on May 12. Rheumatology was the one that sent over to be tested. Patient had improvement with albuterol Patient was never given an albuterol inhaler Patient is attempting to quit smoking. Follow up as needed Plan Of Treatment Medication Medication Name Sig Start Date Stop Date Notes Omeprazole 20 MG Capsule Del ayed Release 1 capsule 1/2 to 1 hour before morning meal Orally Once a day; Duration: 30 days 06/07/2025 Albuterol Sulfate HFA 108 (90 Base) MCG/ACT Aerosol Solution1 puff as needed Inhalation every 4 hrs; Duration: 30 days06/07/2025Treatment Notes Assessment Notes Cellulitis Continue current antibiotic, complete treatment Keep areas clean and dry Make appointment with raul lynch Dr. Follow up prn GERD (gastroesophageal reflux disease) Pt was advised lifestyle modifications to help with GERD symptoms. Pt was advised to take smaller meals (less spicy and less fatty foods as much as possible). Pt was advised to cut down on alcohol and smoking. Pt was told to eat dinner at least 2 hours prior to going to bed and avoid recumbency right after eating any meal. Pt was told to elevate the head end of bed and to use pillows at night to prevent regurgitation. PVU. I will give trial of PPI x 3 months while pt tries lifestyle interventions and then stop it if symptoms resolve. SE of PPI discussed with pt. Follow with GI next month but it is okay to call and ask if they are okay with omeprazole. Asthma Patient had a PFT on May 12. Rheumatology was the one that sent over to be tested. Patient had improvement with albuterol Patient was never given an albuterol inhaler Patient is attempting to quit smoking. Follow up as needed Next Appt Details Follow Up: keep next appoint ment, Reason: Provider Name:Brandi subramanian, 09/13/2025 10:00:00 AM, [facility] [place], [place], [phone], History and Physical Notes * Examination CategorySub-CategoryDetailNotesCategory NotesGeneral ExaminationAbdomen:soft with good bowel sounds, nontender, and no masses or hepatosplenomegaly General appearance: alert, pleasant, well-nourished and in no acute distress. Head: normocephalic, atraumatic. Eyes: pupils equal, round, reactive to light. Heart: regular rate and rhythm without murmurs, gallops, clicks or rubs. Lungs: clear to auscultation bilaterally, with good air movement and no rales, rhonchi or wheezes. Psych: alert and oriented x 3, cooperative with exam, maintains good eye contact. Skin: Multiple small closed lesions to posterior scalp. No drainage. No redness and warmth noted. 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 Patient was given cephalexin 2 weeks ago and naproxen for pain. Patient has severe liver impairment with inflammation so conservative treatment was used. Patient states that she feels like that the antibiotics are helping and the spots on her posterior scalp feel better. The spots are no longer painful and all continue to improve. Patient states that her lymph nodes have all started to go down. Patient sees dermatology next month. She sees rheumatology this month. Patient has begun to have significant heart burn. Patient is waking up in the middle of the night with vomiting. She states she just has a burning sensation in her stomach. She has been taking tums which aren't helping. Worse with caffeine and red sauces. Symptoms are worse at night. Patient doesn't see GI again until Jul. Denies diarrhea. Patient is weaning smoking cigarettes. She is having more issues with SOB especially now that it iscold out. Patient had a PFT in May ([facility])?which her numbers improved 20% with albuterol. She did have a chest CT which was normal. She was given the spacer for albuterol inhaler butnever ordered an inhaler. * ROS: ???Positive and negative as described above in the HPI. * Medical History: Anxiety PTSD (post-traumatic stress disorder) Fibromyalgia Cigarette nicotine dependence without complication Primary Biliary Colongitis (Liver Cirrhosis) Severe Fibrosis Medical History Verified? 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 control?none.?Sexual activity?currently sexually active, with men.?Last pap smear date?2021 - Pr[facility] @ [facility] in [place].?Abnormal pap smear?Low Grade Squamous Intraepitheliel Lesion (LGSIL).? * OB History: ??? History:?Total pregnancies:?3 ?Full-term pregnancies:?3 ?Total living children:?3 * Surgical History: Transjugular liver biopsy 05/11/2024? Surgical History verified.? * Hospitalization/Major Diagno stic Procedure: Denies Past Hospitalization.? Hospitalization Verified.? * Family History: F ather: . M other: . P aternal Grand Father: . P aternal Grand Mother: . M aternal Grand Father: . M aternal Grand Mother: .?Family History Verified.. Heart Disease, Diabetes, Thyroid Cancer, Prostate Cancer, HTN. * Social History: Social History Verified. No Social History documented. * Medications: T akingCephalexin 500 MG Capsule 1 capsule Orally 3 times a day Naproxen Sodium 275 MG Tablet 1 tablet with food or milk as needed Orally every 12 hrs Triamcinolone (oint)-Silicone Ursodiol 300 MG Capsule 3 capsules AM, 2 capsules PM Orally Twice a day predniSONE 5 MG Tablet 2 tablets AM, 2 tablets PM Oral Collagen-Vitamin C- Biotin 500-50-0.8 MG Capsule as directed Orally Vitamin D3 125 MCG (5000 UT) Tablet 1 tablet Orally Once a day hydrOXYzine HCl 25 MG Tablet 1 tablet as needed Orally three times a day Escitalopram Oxalate 10 MG Tablet 1 tablet Orally Once a day Medication List reviewed and reconciled with the patientTaking Cephalexin 500 MG Capsule 1 capsule Orally 3 times a day Taking Naproxen Sodium 275 MG Tablet 1 tablet with food or milk as needed Orally every 12 hrs Taking Triamcinolone (oint)-Silicone Taking Ursodiol 300 MG Capsule 3 capsules AM, 2 capsules PM Orally Twice a day Taking predniSONE 5 MG Tablet 2 tablets AM, 2 tablets PM Oral Taking Collagen-Vitamin C-Biotin 500-50-0.8 MG Capsule as directed Orally Taking Vitamin D3 125 MCG (5000 UT) Tablet 1 tablet Orally Once a day Taking hydrOXYzine HCl 25 MG Tablet 1 tablet as needed Orally three times a day Taking Escitalopram Oxalate 10 MG Tablet 1 tablet Orally Once a day Medication List reviewed and reconciled with the patient * Allergies: N .K.D.A.yesAllergies Verified. Objective: * Vitals: T emp:98.2F, Wt:176lbs, Ht: 66 in, BMI:28.4Index, BP:124/76mm Hg, HR:113/min, RR:16/min, Pain scale:61-10, Oxygen sat %:97%, Wt-k.83 kg, Ht-cm: 167.64 cm, Body Surface Area: 1.93. Yenni Calero 06/07/2025 10:12:34 AM EST >. * Examination: ???CQM Exceptions: ?Currently taking Aspirin:? Aspirin Use:?No?General Examination: ?Lymph nodes:?supraclavicular lymphadenopathy.?Abdomen:?soft with good bowel sounds, nontender, and no masses or hepatosplenomegaly.?General appearance: alert, pleasant, well-nourished and in no acute distress. Head: normocephalic, atraumatic. Eyes: pupils equal, round, reactive to light. Heart: regular rate and rhythm without murmurs, gallops, clicks or rubs. Lungs: clear to auscultation bilaterally, with good air movement and no rales, rhonchi or wheezes. Psych: alert and oriented x 3, cooperative with exam, maintains good eye contact. Skin: Multiple small closed lesions to posterior scalp. No drainage. No redness and warmth noted. Red flushed cheeks. Assessment: * Assessment: 1.?Cellulitis - L03.90 (Primary)???2.?GERD (gastroesophageal reflux disease) - K21.9???3.?Asthma - J45.909??? Plan: * Treatment: Notes: Continue current antibiotic, complete treatment Keep areas clean and dry Make appointment with raul lynch Dr. Follow up prn??2.?GERD (gastroesophageal reflux disease)? Start Omeprazole Capsule Delayed Release, 20 MG, 1 capsule 1/2 to 1 hour before morning meal, Orally, Once a day, 30 days, 30, Refills 3.?? Notes: Pt was advised lifestyle modifications to help with GERD symptoms. Pt was advised to take smaller meals (less spicy and less fatty foods as much as possible). Pt was advised to cut down on alcohol and smoking. Pt was told to eat dinner at least 2 hours prior to going to bed and avoid recumbency right after eating any meal. Pt was told to elevate the head end of bed and to use pillows at night to prevent regurgitation. PVU. I will give trial of PPI x 3 months while pt tries lifestyle interventions and then stop it if symptoms resolve. SE of PPI discussed with pt.? Follow with GI next month but it is okay to call and ask if they are okay with omeprazole.? 3.?Asthma? Start Albuterol Sulfate HFA Aerosol Solution, 108 (90 Base) MCG/ACT, 1 puff as needed, Inhalation, every 4 hrs, 30 days, 1 Inhaler, Refills 1.?? Notes: Patient had a PFT on May 12. Rheumatology was the one that sent over to be tested. Patient had improvement with albuterol Patient was never given an albuterol inhaler Patient is attempting to quit smoking. Follow up as needed?? * Procedure Codes: 3 078F HTN DIAST BP < 428841H HTN SYST BP < 130 * Follow Up: k eep next appointment Billing Information: * Visit Code: 73561 Office Visit Est 20-29 minutes. * Procedure Codes: 3078F HTN DIAST BP < 80. 3074F HTN SYST BP < 130. * Sign off status: Completed true * Provider: Darlin Maciel APRN, FNP-C Date: 08/08/2024 Generated for Printing/Faxing/eTransmitting on:?06/18/2025 06:42 PM EST
[2025-06-18 18:07] VITALS: BP 158/109; PULSE 110; TEMP 36.9; O2SAT 100; BMI 28.1
--- NOTE | 2025-06-18 18:43 | ED_ITS ---
HPI HPI - General Adult General Chief complaint: Wound/Laceration Stated complaint: Laceration Time Seen by Provider: 06/18/25 18:06 Source: patient Mode of arrival: walk-in History of Present Illness HPI narrative: Patient is a 40-year-old female that presents with complaints of laceration at the base of her right thumb when she was doing dishes prior to arrival. She states there was a broken mug in the sink she did not see and she came down right on top of the sharp piece. She is unsure if her tetanus is up-to-date. Related Data Home Medications ?Medication ?Instructions ?Recorded ?Confirmed albuterol sulfate 90 mcg/actuation inhalation 06/18/25 aerosol inhaler azathioprine 50 mg tablet mg 06/18/25 escitalopram oxalate 10 mg tablet mg 06/18/25 fluocinonide 0.05 % topical topical 06/18/25 solution hydroxyzine HCl 25 mg tablet mg 06/18/25 ketoconazole 2 % shampoo topical 06/18/25 naproxen sodium 275 mg tablet mg 06/18/25 omeprazole 20 mg capsule,delayed mg 06/18/25 release prednisone 5 mg tablet mg 06/18/25 triamcinolone acetonide 0.1 % applic topical 06/18/25 topical cream ursodiol 300 mg capsule mg 06/18/25 Previous Rx's ?Medication ?Instructions ?Recorded cephalexin 500 mg capsule 500 mg PO Q6H 7 days #28 cap s 06/18/25 Allergies Allergy/AdvReac Type Severity Reaction Status Date / Time No Known Drug Allergies Allergy Verified 06/18/25 18:04 Opioid HPI Opioid Management Most Recent Opioid Data: Last Pain Scale 8 Today, 18:39 Review of Systems ROS Status of ROS 10 or more systems reviewed and unremark able except as noted in history and below PFSH PFSH Social History Little interest or pleasure in doing things: not at all Feeling down, depressed, or hopeless: not at all Exam Narrative Exam Narrative: General: No distress, age-appropriate Skin: Warm, dry, no pallor. No rash. U-shaped laceration, approximately 2 cm in length at the base of the right thumb on the lateral side, mild venous oozing Head: Normocephalic, atraumatic. Neck: Supple, non-tender. Eye: Pupils are equal, round and EOMI. No scleral icterus. Ears, Nose, Mouth, and Throat: No nasal mucosal hypertrophy. Oral mucosa is moist, no posterior oropharynx erythema, uvula is mid-line Cardiovascular: Regular Rate and Rhythm without murmur, gallop or rub. Respiratory: No accessory muscle use or respiratory distress. Musculoskeletal: Full ROM of all extremities, no calf or popliteal tenderness Neurological: A&O x4. No cranial nerve dysfunction observed. No truncal ataxia. Moves all extremities. Sensation intact. Psychiatric: Cooperative and interactive. Normal mood and affect. Constitutional Vital Signs, click to edit/add: Last Vital Signs Temp 98.5 F 06/18/25 18:07 Pulse 88 06/18/25 19:53 Resp 20 06/18/25 19:53 BP 158/109 H 06/18/25 18:07 Pulse Ox 97 06/18/25 19:53 O2 Del Method Room Air 06/18/25 19:53 Documenting provider has reviewed patient's vital signs: yes Course Vital Signs Vital signs: Vital Signs Temperature 98.5 F 06/18/25 18:07 Pulse Rate 110 H 06/18/25 18:07 Respiratory Rate 16 06/18/25 18:07 Blood Pressure 158/109 H 06/18/25 18:07 Pulse Oximetry 100 06/18/25 18:07 Oxygen Delivery Method Room Air 06/18/25 18:07 Temperature 98.5 F 06/18/25 18:07 Pulse Rate 88 06/18/25 19:53 Respiratory Rate 20 06/18/25 19:53 Blood Pressure 158/109 H 06/18/25 18:07 Pulse Oximetry 97 06/18/25 19:53 Oxygen Delivery Method Room Air 06/18/25 19:53 Medical Decision Making MDM Narrative Medical decision making narrative: The patient is a 40-year-old female who sustained a laceration at the base of the right thumb from broken glass while washing dishes. The wound was evaluated and found to be clean, without tendon, joint, or bone involvement. She had full ROM of the right thumb, flexion/extension at the IP and flexion/extension abduction/adduction at the CMC joint. 5/5 strength in all these motions as well. Brisk capillary refill distally with sensation intact with light touch. Given the patient?s uncertain tetanus immunization status, Boostrix (Tdap) was administered in the ED. The laceration was repaired at bedside using 12 sutures after appropriate wound irrigation and local anesthesia. Given the location on the hand and patient?s history of autoimmune disease, prophylactic antibiotics were considered and prescribed (Keflex 500mg qid X 7 days). The patient tolerated the procedure well without complications. Discharge instructions provided, including wound care, activity restrictions, suture removal in 10?14 days, and signs/symptoms of infection requiring prompt medical attention. Wound was dressed with nonstick dressing and patient was discharged in stable condition with plan for PCP follow-up for suture removal. Differential Diagnosis Differential Diagnosis: Laceration Discharge Plan Discharge Chief Complaint: Wound/Laceration Clinical Impression: Laceration of thumb Patient Disposition: Home, Self-Care Time of Disposition Decision: 19:34 Condition: Good Mode of Transportation: Private Vehicle Prescriptions / Home Meds: New cephalexin 500 mg capsule 500 mg PO Q6H 7 Days Qty: 28 0RF No Action ketoconazole 2 % shampoo TOPICAL prednisone 5 mg tablet azathioprine 50 mg tablet triamcinolone acetonide 0.1 % cream TOPICAL ursodiol 300 mg capsule omeprazole 20 mg capsule,delayed release(DR/EC) hydroxyzine HCl 25 mg tablet fluocinonide 0.05 % solution TOPICAL albuterol sulfate 90 mcg/actuation HFA aerosol inhaler INHALATION naproxen sodium 275 mg tablet escitalopram oxalate 10 mg tablet Print Language: Lithuanian Instructions: Laceration (ED) Additional Instructions: Wound Care Instructions * Keep the wound clean and dry for the first 24 hours * After 24 hours, you may gently wash the area with soap and water * Do not soak the hand (no baths, swimming, or dishwashing without protection) * Apply a thin layer of antibiotic ointment as directed and cover with a clean bandage * Change the dressing daily or sooner if it becomes wet or dirty * Avoid excessive movement, heavy lifting, or strain of the right thumb/hand while healing Medications * Take prescribed antibiotics exactly as directed * You may take acetaminophen or ibuprofen for pain as needed, unless otherwise contraindicated Suture Removal * Sutures should be removed in 10?14 days * Follow up with your primary care provider, urgent care, or return to the ED for removal Return to the ER or Seek Medical Care Immediately If You Develop * Increasing redness, warmth, swelling, or pain around the wound * Pus or foul-smelling drainage * Red streaking extending from the wound * Fever or chills * Numbness, tingling, weakness, or difficulty moving the thumb * Wound edges opening or bleeding that will not stop Referrals: CARLOS MEREDITH [Primary Care Provider] - 1 week Referral Note: Call for appointment for suture removal in 10-14 days Discharge Date/Time: 06/18/25 19:59 Procedures ED Laceration Laceration Laceration 1: Site: hand (Lateral aspect of thumb) Side (if applicable): right Description: flap Depth: simple, single layer Anesthetic used: lidocaine 1% Anesthesia technique: local infiltration Amount (ml): 2 Pre-repair: wound explored, irrigated extensively and deep structures intact Skin layer closed with: other (Ethilon) Size (cm): 4-0 Number of sutures: 12 Technique: simple, interrupted
--- OUTSIDE RECORDS SUMMARY | 2025-06-18 18:43 | XMS_ITS | Patient Health Record ---
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 Abilio Tomlinson Primary Care Provider [phone] Reason For Referral No Information Medications Medication SIG (Take, Route, Frequency, Duration) Notes Start Date End Date Status Ibuprofen 800 MG Tablet 1 tablet with fo od or milk as needed Orally Three times a day 06/12/2021ctiveIbuprofen 800 MG Tablet1 tablet with food or milk as needed Orally Three times a day07/17/2021ctivePreviDent 5000 Booster Plus 1.1 % Paste as directed Tavexr6110/09/2021ctive Plan Of Treatment No Information Insurance Providers Payer Name Payer Address Payer Phone Subscriber Number Group Number Insured Name Patient Relationship to Insured Coverage Start Date Coverage End Date [employer]-termed [address] [place] [address] [id number] Radha QUINTERO - patient is the [id number] 2022zMEDICAID C after [employer]-termed [address] [place] [id number] MÁRQUEZ - patient is the [id number] [place] DQ Terminated [address] [place] [id number] Senait QUINTEROf - patient is the [id number] [employer] [place] BCBS Termed [address] [place] [phone] [id number], [id number] - patient is the [id number] 2021 2023
--- OUTSIDE RECORDS SUMMARY | 2025-06-18 18:43 | XMS_ITS | Patient Health Record ---
Author Organization [facility] vices Address [facility] [address] [place], [place] [id number] Care Team Providers Care Optical Store Manager Name Role Phone Brandi Maciel Primary Care Provider [phone] Ashley Issa Unavailable [phone] Allergies No Known Allergies Results Component Value Reference Range Flag Notes C REACTIVE PROTEIN (INFLAMMA TORY) Reviewed date:12/14/2024 04:33:07 PM Interpretation: Performing Lab: Notes/Report: C REACTIVE PROTEIN 0.1 <0.5 mg/dL UNLESS OTHERWISE INDICATED, ALL TESTING PERFORMED AT: [email or web address] [address] [place] [address] RN ANESTHETIST: FABIO GUPTA M.D. CLIA NUMBER [id number] CAP ACCREDITATION AUID [id number] RHEUMATOLOGY PROFILE BASIC Reviewed date:12/15/2024 01:21:07 PM Interpretation: Performing Lab: Notes/Report:SED RATE, IWEMANHQE870-92 MM/HRHURIC ACID5.42.4-5.7 mg/dL Therapeutic target for gout patients: <6.0ANTI NUCLEAR ANTIBODIESPOSITIVE NEGATIVEARHEUMATOID FACTOR, QUANT11<14 IU/mLASO<20<201 IU/mLTSH + FREE T4 PROFILE Reviewed date:12/14/2024 04:33:07 PM Interpretation: Performing Lab: Notes/Report:TSH0.7980.270-4.200 uIU/mL The [employer] [employer] (JAN) recommends the following reference ranges for TSH levels during : First trimester: 0.1 to 2.5 mIU/L Second trimester: 0.2 to 3.0 mIU/L Third trimester: 0.3 to 3.0 mIU/L FREE T40.910.80-1.90 ng/dLCBC NO DIFF Reviewed date:12/15/2024 01:21:13 PM Interpretation: Performing Lab: Notes/Report:WBC16.83.6-11.0 THDS/CMMHRBC4.443.80-5.20 MILL/HHAYFA25.011.9-16.0 G/DLHCT43.635-47 %GVD1386-279 fLMCH33.826.0-33.0 xkLBLXM36.432.0-35.0 g/dlRDW 12.411.2-14.8 %KGFRCHRD660601-383 THOUS/CMMVITAMIN D 25 HYDROXY Reviewed date:12/14/2024 04:33:07 PM Interpretation: Performing Lab: Notes/Report:VITAMIN D, 25 MFBVAOL08.930.0-100.0 ng/mL 25-OH VITAMIN D INTERPRETATION Deficiency.... <20.0 ng/ml Insufficiency..20.0-29.0 ng/ml Sufficiency....30.0-100.0 ng/ml Possible Toxicity...>150 ng/ml IRON BINDING CAPACITY (IBC) IRON AND % SATURATION Reviewed date:12/14/2024 04:33:07 PM Interpretation: Performing Lab: Notes/Report:UNSATURATED FLY569199-420 ug/dLIRON USMNCUM219015-597 ug/dLIRON OKWCHQQQKT2200-92 %RXLF14962-953 ug/dLCOMPREHENSIVE METABOLIC PANEL WITH GFR Reviewed date:12/15/2024 01:20:43 PM Interpretation: Performing Lab: Notes/Report:RUBYPJJ19321-608 mg/kSIQB972-26 mg/dLCALCIUM9.68.6-10.5 mg/dL CREATININE, BLOOD0.770.51-1.15 mg/dLeGFR (2020 CKD-EPI)101>59 mL/min/1.73m2 ENKPAD021158-991 mmol/LPOTASSIUM4.33.5-5.4 mmol/ANSYURWAF64884-688 mmol/ZSJ582 18-32 mmol/LANION XSS778-57 mmol/LT. BILIRUBIN0.4<1.3 mg/dLALK XTFQ87905-775 U/L IBXM-BIHC473-75 U/ZMPAQ-TYMO4910-27 U/LHT. PROTEIN7.06.0-8.3 g/dLALBUMIN4.43.5- 5.2 g/dLANA TITER Reviewed date:12/15/2024 01:20:31 PM Interpretation: Performing Lab: Notes/Report:SUSAN PATTERN (REPORTED TITER)1:320<1:80 TITERACOMMENTSCentromere NONEA Reason For Referral Reason eval and treat Diagnosis 1 Polyarthralgia (M25. 50) Referral Organization Main Referring Provider First Name Ashley Referring Provider Last Name Maegan Referring Provider Speciality Nurse Rex brandt Referred Provider [facility] Rheumatology Referred Provider Specialty Rheumatology General Notes Reid Castillo 11/29 09:23:01 AM >Sent f/u fax to [facility] Rheumatology. Watson ross Anita 12/15/2024 12:42:30 PM >patient is scheduled, Reid Castillo 01/27/2025 01:52:01 PM >Sent request for consult notes. Anna ross Jeff 01/28/2025 12:47:17 PM >Received consult notes, see attached. Anna ross Jeff 01/28/2025 12:58:38 PM >closing referral. cody Referral Priority Routine Referral Appointment Date 2025 Reason eval and treat Diagnosis 1 Primary biliary chol angitis (K74.3) Referral Organization Main Referring Provider First Name Ashley Referring Provider Last Name Maegan Referring Provider Speciality Nurse Rex brandt Referred Provider [facility] Referred Provider Specialty Gastroentero logy General Notes Reid Castillo 12/29 10:52:05 AM >Per conversation with office, gastro specialist starting in January sometime. May be able to schedule with another provider in their office. Anna ross Jeff 01/20/2025 01:28:16 PM >see attached consult notes. closing referral. Anna ross Jeff 01/20/2025 01:29:31 PM >Attached consult notes are from 2023. Anna ross Jeff 01/29/2025 12:54:12 PM >Resent Referral with notes. Anna ross Jeff 02/05/2025 09:47:00 AM >Sent text to pt asking for return call to f/u. { {TOFIRSTNAME}} This is [facility] following up on an outstanding referral that was ordered by your provider. Please call our office at , so we can _update our records., Reid Castillo 02/15/2025 08:20:54 AM >Sent second text asking pt to call [facility] to f/u on referral. Anna ross Jeff 02/24/2025 10:55:15 AM >No response from Patient, addressing referral. cody Referral Priority Routine Medications Medication SIG (Take, Route, Frequency, Duration) Notes Start Date End Date Status Collagen-Vitamin C-Biotin 500-50-0.8 MG Capsule as directed Orally ActivepredniSONE 5 MG Tablet2 tablets AM, 2 tablets PM Oral; Duration: 30 days ActiveUrsodiol 300 MG Capsule3 capsules AM, 2 capsules PM Orally Twice a day ActiveTriamcinolone (oint)-SiliconeActiveEscitalopram Oxalate 10 MG Tablet1 tablet Orally Once a day; Duration: 90 days5ActiveVitamin D3 125 MCG (5000 UT) Tablet1 tablet Orally Once a dayActiveOmeprazole 20 MG Capsule Delayed Release1 capsule 1/2 to 1 hour before morning meal Orally Once a day; Duration: 30 days5ActivehydrOXYzine HCl 25 MG TabletTAKE 1 TABLET BY MOUTH THREE TIMES A DAY NEEDED FOR 90 DAYS; Duration: 90ActiveNaproxen Sodium 275 MG Tablet1 tablet with food or milk as needed Orally every 12 hrs; Duration: 7 days 5ActiveAlbuterol Sulfate HFA 108 (90 Base) MCG/ACT Aerosol Solution1 puff as needed Inhalation every 4 hrs; Duration: 30 days5Active Cephalexin 500 MG Capsule1 capsule Orally 3 times a day; Duration: 14 days 5Active Social History Tobacco Use: Social History Observation Description Date Details (start date - stop date) Current Smoker 07/01/2007 - NA Sex Assigned At : Social History Observation Description Sex Assigned At Female Social History Social DeterminantsSocial InfoQuestionAnswerNotesPRAPAREDate Completed/Updated: 05/24/2025patient entered dataWhat is your current housing situation?I have housingpatient entered dataAre you worried about losing your housing?No patient entered dataWhat is the highest level of school that you have finished?High school diploma or GEDpatient entered dataWhat is your current work situation?Otherwise unemployed but not seeking work (ex. 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 Check all that applyI do not have problems meeting my needsHas lack of transportation kept you from medical appointments, meetings, work or from getting things needed for daily living?NoHow often do you see or talk to people that you care about and feel close to? (For example: talkingto friends on the phone, visiting friends or family, going to congregational or club meetings)More than 5 times a weekHow stressed are you? Stress is when someone feels tense, nervous, anxious, or can't sleep at nightbecause their mind is troubledA little bit patient entered dataIn the past year have you spent more than 2 nights in a row in a chcf, half-way, mcfp center, orjuvenile correctional facility?No patient entered dataAre you a refugee?Nopatient entered dataWhat country are you from?[place] Statespatient entered dataDo you feel physically and emotionally safe where you currently live?Yespatient entered dataIn the past year, have you been afraid of your partner or ex-partner?Nopatient entered dataPRAPARE Score:5Sexual History:Social InfoQuestionAnswerNotesFamily Planning Are you or your partner planning on becoming in the next year if not already ?No? What type of contraception are you using?partner vasectomy PCMH and UDS DemographicsSocial InfoQuestionAnswerNotesPrihill crest behavioral [facility] servicesy [facility] QuestionsDo you have any barriers to learning?Nonepatient entered dataWhat is your preferred method of learning?Doing or practicingpatient entered dataHow often do you need to have someone help you read instructions?Neverpatient entered dataDrugs/Alcohol/Caffeine:Social InfoQuestionAnswerNotesDrugsHave you used drugs other than those for medical reasons in the past 12 months?Yes - MarijuanaCAGE-AID Questionnaire (2018 Edition)Have you ever felt that you ought to cut down on your drinking or drug use?Nopatient entered dataHave people annoyed you by criticizing your drinking or drug use?Nopatient entered data Have you ever felt bad or guilty about your drinking or drug use?Nopatient entered dataHave you ever had a drink or used drugs first thing in the morning to steady your nerves or to get rid of a hangover?Nopatient entered dataCAGE- AID Khqqc4LtayhgzpqhdgbkZixlividBtqeqstcLpatfq:3-4 cups per dayTobacco Use: Social InfoQuestionAnswerNotesTobacco Use/Smoking? Are you interested in quitting?Thinking about quittingpatient entered data? How many cigarettes a day do you smoke?6-10patient entered data? How soon after you wake up do you smoke your first cigarette?after 60 minutespatient entered data? How often do you smoke cigarettes?every daypatient entered data? When did you start smoking?07/01/2007patient entered dataTobacco use:current smokerpatient entered data? When did you start smoking?06/11/2014patient entered data Additional Findings: Tobacco UserModerate cigarette smoker (10-19 cigs/day) Additional DetailsCategorySocial InfoOptionsDetailsMiscellaneous: Culture/Language BarrierNoEducation LevelGrade 1-6, Grade 7-12Barriers to LearningNoneLearning PreferenceDoing or practicingHow often do you need to have someone help you read instructionsNeverSafetyPatient feels safe in relationships YesDrugs/Alcohol/Caffeine:Do you drink alcohol?No Problems Problem Type SNOMED Code ICD Code Onset Dates Problem Status W/U Status Risk Notes Problem Overweight (989360938) Overweight (E66.3) ActiveconfirmedProblemAnxiety disorder (276373299)Anxiety disorder, unspecified (F41.9)ActiveconfirmedProblemTobacco user (352602273)Cigarette nicotine dependence without complication (F17.210)ActiveconfirmedProblemGastroesophageal reflux disease (820649647)GERD (gastroesophageal reflux disease) (K21.9)Active confirmedProblemAsthma (299827846)Asthma (J45.909)ActiveconfirmedProblemPrimary biliary cholangitis (84749972)Primary biliary cholangitis (K74.3)Activeconfirmed Vital Signs Heart Rate 113 /min 06/07/2025 Broshious, Fatimah la 06/07/2025 10:12:34 AM EST > Temperature 98.2 degrees Fahrenheit 06/07/2025 Bros hious, Yenni 06/07/2025 10:12:34 AM EST > Respiratory Rate 16 /min 06/07/2025 Broshious, Yenni 06/07/2025 10:12:34 AM EST > Blood pressure diastolic 76 mm Hg 06/07/2025 Bro shious, Yenni 06/07/2025 10:12:34 AM EST > Oximetry 97 % 06/07/2025 Broshious, Fatimah la 06/07/2025 10:12:34 AM EST > Height-cm 167.64 cm 06/07/2025 Broshious, Fatimah la 06/07/2025 10:12:34 AM EST > Weight-kg 79.83 kg 06/07/2025 Broshious, Fatimah la 06/07/2025 10:12:34 AM EST > Height 66 in 06/07/2025 Broshious, Fatimah la 06/07/2025 10:12:34 AM EST > Blood pressure systolic 124 mm Hg 06/07/2025 Bros hious, Yenni 06/07/2025 10:12:34 AM EST > Weight 176 lbs 06/07/2025 Broshious, Fatimah la 06/07/2025 10:12:34 AM EST > BMI 28.4 kg/m2 06/07/2025 Broshious, Fatimah la 06/07/2025 10:12:34 AM EST > Encounters Encounter Location Date Provider Diagnosis [address] [id number] 11/30/2024 Ashley Maegan Polyarthralgia M25 .50 and Fatigue R53.[address] [id number] 12/31/2024 Ashley Issa Primary biliary cholangitis K74.3 and Anxiety F41.[address] [id number] 03/15/2025 Brandi Maciel Anxiety disorder, unspecified F41.9 ; Depression, unspecified F32.A ; Cigarette nicotine dependence without complication F17.210 ; Dietary counseling Z71.3 ; Exercise counseling Z71.82 ; Overweight E66.3 and Body mass index [BMI] 27.0-27.9, adult Z68.[address] [id number] 05/24/2025 Brandi Maciel Cellulitis L03.[address] [id number] 06/07/2025 Brandi Maciel Cellulitis L03.90 ; GERD (gastroesophageal reflux disease) K21.9 and Asthma J45.[address] [id number] 12/24/2024 Ashley Issa [id number] [place] [id number]Anxiety [address] [id number]/24/2025bigail Maciel Assessments Encounter Date Diagnosis (ICD Code) Assessment Notes Treatment Notes Treatment Clinical Notes Section Notes 11/30/2024 Fatigue (ICD-10 - R53.83) 11/30/2024Polyarthralgia (ICD-10 - M25.50)12/31/2024nxiety (ICD-10 - F41.9) begin lexapro f.u in 4 weeks or sooner if needed if develop SI, please go to ER or call 911 12/31/2024Primary biliary cholangitis (ICD-10 - K74.3) continue following with [facility] GI through virtual visits [facility] per pateints request 03/15/2025nxiety disorder, unspecified (ICD-10 - F41.9)Anxiety stable. Will continue current medications. Advised pt if they are have suicidal or homicidal to call 911 or go to the ER. F/u 3 months & PRN03/15/2025Depression, unspecified (ICD-10 - F32.A) Depression stable. Will continue current medications. Advised pt if they are have suicidal or homicidal to call 911 or go to the ER. F/up in 3 months, earlier with new/worsening symptoms. 5Anxiety (ICD-10 - F41.9)5Cellulitis (ICD-10 - L03.90) Extreme caution with NSAIDs. Do not take naproxen with ibuprofen. I would try to use alternatives before pain medications Start keflex to be conservative with treatment, if no improvement will treat for MRSA Patient was on Doxy and caused liver function to decrease, patient does not remember derm mentioning MRSA She can call GI to see if they recommend a different antibiotic Continue to rheumatology appointment in may and GI in . Derm is also next month If any medications need adjusted call the office, if symptoms due not improve follow up sooner For severe symptoms, chest pain, SOB, or change in LOC go to ER Follow up in 2 weeks 06/07/2025GERD (gastroesophageal reflux disease) (ICD-10 - K21.9) [...] ask if they are okay with omeprazole. 06/07/2025ellulitis (ICD-10 - L03.90) Continue current antibiotic, complete treatment Keep areas clean and dry Make appointment with raul lynch Dr. Follow up prn 06/07/2025sthma (ICD-10 - J45.909) Patient had a PFT on May 12. Rheumatology was the one that sent over to be tested. Patient had improvement with albuterol Patient was never given an albuterol inhaler Patient is attempting to quit smoking. Follow up as needed 03/15/2025igarette nicotine dependence without complication (ICD-10 - F17.210) Patient provided with [phone] phone line.03/15/2025Dietary counseling (ICD-10 - Z71.3)Encoruaged eating a healthy, balanced diet and increasing activity level by engaging in exercise atleast 30 min x atleast 5 days a week. 03/15/2025Exercise counseling (ICD-10 - Z71.82)The patient was encouraged to increase exercise weekly to at least 3-4 times per week for 30-45 minutes for each session. Exercise may include but is not limited to walking, jogging, running, resistance training, water aerobics and strength training. Benefits of increasing exercise regimens may include healthier lifestyle, stronger bone health, diminished aches and pain, and better metabolism.03/15/2025Overweight (ICD-10 - E66.3)03/15/2025ody mass index [BMI] 27.0-27.9, adult (ICD-10 - Z68.27) Plan Of Treatment Next Appt Details Provider Name:Brandi Clark marilynn, 09/13/2025 10:00:00 AM, [address], [place], [id number], Insurance Providers Payer Name Payer Address Payer Phone Subscriber Number Group Number Insured Name Patient Relationship to Insured Coverage Start Date Coverage End Date Medicaid [address] [place] [address] [id number] Radha Guardado - patient is the [id number] 2025 Medical (General) History Medical History History ICD Code Anxiety F41.9 PTSD (post-traumatic stress disorder) F4 3.10 Fibromyalgia M79.7 Cigarette nicotine dependence without co mplication F17.210 Primary Biliary Colongitis (Liver Cirrho sis) Severe FibrosisSurgical History Surgery Date(Month/Year) Transjugular liver biopsy 05/11/2024
--- OUTSIDE RECORDS SUMMARY | 2025-06-18 18:43 | XMS_ITS | Clinical Summary ---
Author Organization [facility] Address [address] [place] [address] Care Team Providers Care Cadence Specialists Name Role Phone Case, Peri Lennon CONFERENCE CENTER MANAGER Unavailable [phone] Unallocated, Noms Provider MD Primary Care Provi sebas Allergies Active AllergyReactionsCriticalityNoted DateCommentsWound Dressing AdhesiveGI fmwhaczfjui52/11/2024 Plastic medical tape Medications MedicationSigDispense QuantityRefillsLast FilledStart DateEnd DateStatus cholecalciferol (D3-5) 5,000 Units tablet Take 1 tablet by mouth DailyActive hydrOXYzine HCl (Atarax) 25 MG tablet every 8 (eight) hours01/09/2024ctive Probiotic tablet delayed-release as directed OrallyActive triamcinolone (Kenalog) 0.5 % ointment Apply topically 2 (two) times a dayActive triamcinolone (Kenalog) 0.1 % cream SPOT TREAT SCABBED TRUNK & EXTREMITIES 2X/DAY MON-SAT,WEEKENDS OFF MAY REPEAT NEEDED FOR JMBTXT5808/02/2023ctive ursodiol (Actigall) 300 MG capsule 1 capsule every 12 (twelve) hours05/21/2024ctive budesonide EC (Entocort EC) 3 MG 24 hr capsule 1 (one) time each day at the same time05/21/2024ctive Family History Medical HistoryRelationNameCommentsLupusBrotherDiabetesFatherHeart failureFather HypertensionFatherThyroid cancerFatherCancerMotherDiabetesMotherHypertension MotherRelationNameStatusCommentsBrotherFatherMother Social History Tobacco UseTypesPacks/DayYears UsedDateSmoking Tobacco: FormerCigarettes Smokeless Tobacco: NeverAlcohol UseStandard Drinks/WeekCommentsNot Currently0 (1 standard drink = 0.6 oz pure alcohol)CommentsNoSex and Gender InformationValueDate RecordedSex Assigned at BirthNot on fileLegal SexFemale 09/12/2022 6:48 PM EDTGender XacxtalgLizrzu59/15/2023 6:48 PM EDTSexual OrientationNot on file Last Filed Vital Signs Vital SignReadingTime TakenCommentsBlood Vskbpdaj623/7206/15/2024 10:57 AM EST Pulse--Temperature--Respiratory Rate--Oxygen Saturation--Inhaled Oxygen Concentration--Txpzxs83.4 kg (120 lb)06/15/2024 10:57 AM UKIHbpjer233.9 cm (5' 6.5 )09/19/2021 12:00 PM EDTBody Mass Index19.0809/19/2021 12:00 PM EDT Plan of Treatment Health MaintenanceDue DateLast DoneCommentsCOVID-19 Vaccine (#1)1990 Pneumococcal Vaccine: Pediatrics (0 to 5 Years) and At-Risk Patients (6 to 64 Years) (1 of 2 - PCV)01/20/2004HPV/Gyagph7701/19/2015Cervical Cancer Screening 09/20/2024Pap Smear503/, 09/20/2020, 06/05/2019Mammogram 2025Influenza Vaccine (#1)2025 Procedures Procedure NamePriorityDate/TimeAssociated DiagnosisCommentsTHINPREP TIS PAP AND HPV MRNA E6/E7 REFLEX HPV 16,18/45 (28084)Fqjpotj7709/20/2021 from Last 3 Months or Most Recently Relevant to Health Maintenance Results * THINPREP TIS PAP AND HPV MRNA E6/E7 REFLEX HPV 16,18/45 (84547) (09/20/2021) ComponentValueRef RangeTest MethodAnalysis TimePerformed AtPathologist SignatureCLINICAL INFORMATION:None givenN[facility] EXTER[facility] LABLMP:None given [facility] LABPREV. PAP:None given[facility] EXTER[facility] LABPREV. BX: None given[facility]TER[facility] LABSOURCE:None given[facility] STATEMENT OF ADEQUACY:SEE COMMENTNOKINDRED H[facility] EXTERNAL LABComment: Satisfactory for evaluation. Endocervical/transformation zone component present. INTERPRETATION/RESULT:Negative for intraepithelial lesion or malignancy.[facility] EXTERNAL LABINFECTION:Shift in vaginal zeinab suggestive of bacterial vaginosis.[facility] EXTERNAL LABCOMMENT:This Pap test has been evaluated with computer assisted technology.[facility] EXTERNAL LABCYTOTECHNOLOGIST:SEE COMMENTNOKINDRED [facility] EXTERNAL LABComment: JJK, CT(ASCP) CT screening location: [place] [address]. REVIEW COMPUTER SYSTEMS DESIGN ANALYST:SEE COMMENTNOKINDRED H[facility] EXTERNAL LABComment: EMP, CT(ASCP) CT screening location: [place] [address]. COMMENTSEE COMMENTNOKINDRED H[facility] EXTERNAL LABComment: EXPLANATORY NOTE: The Pap is a screening test for cervical cancer. It is not a diagnostic test and is subject to false negative and false positive results. It is most reliable when a satisfactory sample, regularly obtained, is submitted with relevant clinical findings and history, and when the Pap result is evaluated along with historic and current clinical information. HPV MRNA E6/E7Not DetectedNot DetectedNOKINDRED HOSPITAL [facility] EXTERNAL LABComment: Methodology: Internal Carver-Mediated Amplification This assay detects E6/E7 viral messenger RNA (mRNA) from 14 high-risk HPV types (16,18,31,33,35,39,45,51,52,56,58,59,66,68). The analytical performance characteristics of this assay have been determined by [facility]. The modifications have not been cleared or approved by the FDA. This assay has been validated pursuant to the CLIA regulations and is used for clinical purposes. For additional information, please refer to http://education.Motosmarty.IntelGenX/faq/XGI996y2 (This link if provided for information/ educational purposes only.) NO COLLECTION DATE RECEIVED. WE HAVE USED THE DATE THE SPECIMEN WAS RECEIVED BY THIS LABORATORY THE COLLECTION DATE. IF THIS IS INCORRECT, PLEASE CONTACT CLIENT SERVICES. PHONE NUMBER: [phone] Specimen (Source)Anatomical Location / LateralityCollection Method / Volume Collection TimeReceived Time09/20/2021 Narrative Authorizing ProviderResult TypeResult StatusBrian J Printy MDECW LABSFinal ResultPerforming OrganizationAddressCity/State/ZIP CodePhone Number [facility] from Last 3 Months or Most Recently Relevant to Health Maintenance Care Teams Team MemberRelationshipSpecialtyStart DateEnd Date Case, Peri L, LOGAN [address] [place] [address] PCP - PANDA Bravo [facility]09/30/23 Unallocated, Noms Víctor, [address] [place] [address] PCP - GeneralFamily Yjgelsdq90/23/24
--- OUTSIDE RECORDS SUMMARY | 2025-06-18 18:43 | XMS_ITS | Clinical Summary ---
Author Organization [facility] Address [address] [place] [address] Care Team Providers Care Brusher Operator Name Role Phone Lorelei Colin Lizy CITY PLANT SUPERVISOR Unavailable [phone] Kamila Aleman INDUSTRIAL GAS PRODUCTION OPERATOR Unavailable [phone] Ashley Issa NP Primary Care Provider [phone] Allergies Active AllergyReactionsCriticalityNoted DateCommentsAdhesive Tape (Rosins) Yysojenwmab27/11/2024 Plastic medical tape Medications MedicationSigDispense QuantityRefillsLast FilledStart DateEnd DateStatus IBUPROFEN ORAL Take by mouth.Active triamcinolone acetonide topical 0.5 % ointment Apply to affected area two times a day.Active ursodiol (ACTIGALL) 300 mg capsule Indications:Primary biliary cholangitis (HCC),Liver diseaseTake 3 capsules by mouth as directed. Take 300 mg q Am and 600 mg q PM 270 capsule 506Active multivit,stress formula/zinc (B DSRODWY-Y-C-ZN ORAL) Take 2 tablets by mouth.Active Lactobacillus acidophilus (PROBIOTIC ACIDOPHILUS PO) as directed OrallyActive hydrOXYzine HCl (ATARAX) 25 mg tablet 50 mg.4Active escitalopram oxalate (LEXAPRO) 10 mg tablet 1 tablet Orally Once a day; Duration: 90 days5Active doxycycline hyclate (VIBRAMYCIN) 100 mg capsule Take 100 mg by mouth.5Active fluocinonide (LIDEX) 0.05 % external solution Apply to affected area.5Active ketoconazole (NIZORAL) 2 % shampoo Apply to affected area.5Active azaTHIOprine (IMURAN) 50 mg tablet Take 1 tablet by mouth once daily. 90 tablet 51ctive predniSONE (DELTASONE) 5 mg tablet Indications:Autoimmune hepatitis (HCC),Primary biliary cholangitis (HCC),Liver diseaseTake 6 tablets by mouth once daily. 360 tablet 5Active predniSONE (DELTASONE) 5 mg tablet Take 6 tablets by mouth once daily. 360 tablet 5108/05/2024Discontinued Encounters DateTypeDepartmentCare AohaYhbvtzukicg41/05/2025Refill Gastroenterology [address] [phone] Jose Mendez MD Refill Bstakbc5206/04/2025 Get Medical Advice Gastroenterology [address] [phone] Jose Mendez MD Matbhtbivf96/28/2025 Patient Msg [facility] [address] [place] [address] Provider, Cc DDI Appointment Ftocnqp3404/22/2025 Get Medical Advice Gastroenterology [address] [phone] Jose Mendez MD Reoccuring Xuevbc9204/19/2025 9:00 AM EDTVisit (SP) Office Hematology/Oncology [address] [place] [address] [place] [address] Orlando Ponce MD Leukocytosis, unspecified type (Primary Dx)04/19/20253935Uingmw38/15/2025Telephone Gastroenterology [address] [phone] Jose Mendez MD 04/14/2025 Get Medical Advice Gastroenterology [address] [phone] Jose Mendez MD Recent ER VISIT Patient Msg Cancer [facility] [address] [address] Provider, Ccf Hematology/Oncology Nocpdzgr22/07/2025 Patient Msg Gastroenterology [address] [phone] Jose Mendez MD Appointment Avsratb2603/19/2025Telephone Gastroenterology [address] [address] Jose Mendez MD Patient Update; New meds for RA03/19/2025MC Get Medical Advice Gastroenterology [address] [address] Jose Mendez MD Co Supervisor Grounds And Landscape Initial Visitfrom Last 3 Months Social History Tobacco UseTypesPacks/DayYears UsedDateSmoking Tobacco: Every DayCigarettes Tobacco Cessation:Ready to Q uit: Yes; Counseling Given: Yes Alcohol UseStandard Drinks/WeekCommentsYes0 (1 standard drink = 0.6 oz pure alcohol)Beer, occasPHQ-2AnswerDate RecordedPHQ-2 elwbn517rea Deprivation IndexAnswerDate RecordedNational Score (1-100), lower number is lower dfbs246904/06/2024State Score (1-10), lower number is lower npbg712 Data from: https://www.neighborhoodatlas.[facility].edu/. Last address used for zxsakxwqk[address] [place] [address] 5088904/06/2024CommentsNoSex and Gender InformationValueDate RecordedSex Assigned at DulrvKbbfkw57/05/2021 10:48 AM EDT Legal OedLtgcir83/02/2012 10:12 AM ESTGender QkjqnpmuJjitbp17/05/2021 10:48 AM EDTSexual RxuyyjjbjjjTgzrglww61/05/2021 10:48 AM EDT Last Filed Vital Signs Vital SignReadingTime TakenCommentsBlood Fbugfvbd476/9004/19/2025 8:59 AM EDT mlewzbzXjlmp97373/20/2025 8:54 AM KOXPtwgxcnwtuj47.6 ??C (97.8 ??F)04/19/2025 8:54 AM EDTRespiratory Lnsr1965 8:54 AM EDTOxygen Bcnkmbitzy42% 04/19/2025 8:54 AM EDTInhaled Oxygen Concentration--Cjnjmi62.3 kg (174 lb 13.2 oz)04/19/2025 8:54 AM DREGmdywh659.6 cm (5' 6 )04/04/2021 10:51 AM EDTBody Mass Index28.221 10:51 AM EDT Plan of Treatment DateTypeDepartmentCare Team (Latest Contact Info)Lutmigbozoc12/02/2026 3:30 PM [facility] Gastroenterology [address] [address] Jose Mendez MD [address] [place] [address] LIVEER DIS10/04/2025 9:15 AM EDTOffice Visit [facility] [address] [place] [address] [place] [address] 6 month follow up with lab10/04/2025 9:30 AM EDTVisit (SP) Office Hematology/Oncology [address] [place] [address] [place] [address] Opal Hoover PAReinierC [address] [place] [address] [place] [address] 6 [facility] MaintenanceDue DateLast DoneCommentsCovid-19 Vaccine (#1)1985Anxiety Glanyslxe31/22/2003Depression Rzeufwvql01/22/2003 DTaP,Tdap,Td Vaccine (1 - Tdap)01/20/2004Hepatitis A Vaccine (1 of 2 - Risk 2- dose series)01/20/2004Hepatitis B Vaccine (1 of 3 - 19+ 3-dose series)01/20/2004 Pneumococcal Vaccine (1 of 2 - PCV)01/20/2004Shingrix Vaccine (1 of 2)01/20/2004 Cervical Cancer Rabyzoezt65/26/HPV Vaccine (1 - Risk 3-dose SCDM series)01/20/2012Mammogram Faolhjjqj11/22/2025Influenza Vaccine (#1)2025 HIV YcpwzozleTkwbdaeel33/22/2009, 12/03/2006Hepatitis C ScreeningCompleted 02/04/2024 Procedures Procedure NamePriorityDate/TimeAssociated DiagnosisCommentsTPMT ASY THIOPURIN S-DEUEPRMZEQTYMtdblhu55/06/2025 10:20 AM EST Autoimmune hepatitis (HCC) Primary biliary cholangitis (HCC) HEPATIC FUNCTION SSPKwfnhti21/06/2025 10:20 AM EST Primary biliary cholangitis (HCC) FLOW CYTOMETRY FOR LEUKEMIA/LYMPHOMA (FCLL) MGJJJAVCLDBRegawdt00/20/2025 9:39 AM EDT Leukocytosis, unspecified type FLOW PGSJSNtbscra75/20/2025 9:39 AM EDT Leukocytosis, unspecified type FLOW CYTOMETRY FOR LEUKEMIA/LYMPHOMA (FCLL)Hwvoyjv2104/19/2025 9:39 AM EDT Leukocytosis, unspecified type LD LACTATE MGHFECHLvjnqfg08/20/2025 9:39 AM EDT Leukocytosis, unspecified type COMPREHENSIVE METABOLIC JCLZCZvbpcwr03/20/2025 9:39 AM EDT Leukocytosis, unspecified type CBC + ACWFRxylexe24/20/2025 9:39 AM EDT Leukocytosis, unspecified type HIV 1/2 COMBO WITH REFLEX TO FBDYGISSRJWBJIHWwsjcrm88/22/2009 4:09 PM EDT Supervis Other Normal Preg PAP FLUID CERVICAL GRQNOLMAOExicsul15/26/2009 9:34 AM EDT Supervis Other Normal Preg from Last 3 Months or Most Recently Relevant to Health Maintenance Results * TPMT PHENOTYPE/ENZYME ACTIVITY (05/06/2025 10:20 AM EST)ComponentValueRef RangeTest MethodAnalysis TimePerformed AtPathologist SignatureTPMT Activity 30.924.0 - 44.0 U/mL05/10/2025 4:52 PM ESTARUP LABORATORIESComment: INTERPRETIVE INFORMATION: Thiopurine Methyltransferase, RBC Normal TPMT activity: 24.0-44.0 U/mL................Individuals are predicted to be at low risk of bone marrow toxicity (myelosuppression) as a consequence of standard thiopurine therapy; no dose adjustment is recommended. Intermediate TPMT activity: 17.0-23.9 U/mL................Individuals are predicted to be at intermediate risk of bone marrow toxicity (myelosuppression) as a consequence of standard thiopurine therapy; a dose reduction and therapeutic drug management is recommended. Low TPMT activity: less than 17.0 U/mL...........Individuals are predicted to be at high risk of bone marrow toxicity (myelosuppression) as a consequence of standard thiopurine dosing. It is recommended to avoid the use of thiopurine drugs. High TPMT activity: greater than 44.0 U/mL........Individuals are not predicted to be at risk for bone marrow toxicity (myelosuppression) as a consequence of standard thiopurine dosing, but may be at risk for therapeutic failure due to excessive inactivation of thiopurine drugs. Individuals may require higher than the normal standard dose. Therapeutic drug management is recommended. The TPMT, RBC assay is used as a screen to detect individuals with low and intermediate TPMT activity who may be at risk for myelosuppression when exposed to standard doses of thiopurines, including azathioprine (Imuran) and 6-mercaptopurine (Purinethol). TPMT is the primary metabolic route for inactivation of thiopurine drugs in the bone marrow. When TPMT activity is low, it is predicted that proportionately more 6-mercaptopurine can be converted into the cytotoxic 6-thioguanine nucleotides that accumulate in the bone marrow causing excessive toxicity. The activity of TPMT is measured by the nanomoles of 6-methylmercaptopurine (inactive metabolite) produced per 1 mL of packed red blood cells, (U/mL). TPMT phenotype testing does not replace the need for clinical monitoring of patients treated with thiopurine drugs. Genotype for TPMT cannot be inferred from TPMT activity (phenotype). Phenotype testing should not be requested for patients currently treated with thiopurine drugs. Current TPMT phenotype may not reflect future TPMT phenotype, particularly in patients who received blood transfusion within 30-60 days of testing. ??TPMT enzyme activity can be inhibited by several drugs such as: naproxen (Aleve), ibuprofen (Advil, Motrin), ketoprofen (Orudis), furosemide (Lasix), sulfasalazine (Azulfidine), mesalamine (Asacol), olsalazine (Dipentum), mefenamic acid (Ponstel), thiazide diuretics, and benzoic acid inhibitors. TPMT inhibitors may contribute to falsely low results; patients should abstain from these drugs for at least 48 hours prior to TPMT testing. Falsely low results may also occur as a result of inappropriate specimen handling and hemolysis. This test was developed and its performance characteristics determined by [employer]. It has not been cleared or approved by the US Food and Drug Administration. This test was performed in a CLIA certified laboratory and is intended for clinical purposes. Performed By: [facility] [address] [place] [id number] Teletray Operator: Wicho Williamson MD, PhD CLIA Number: [id number] Specimen (Source)Anatomical Location / LateralityCollection Method / Volume Collection TimeReceived TimeBloodBLOOD SPECIMEN / UnknownVenipuncture / Unknown 05/06/2025 10:20 AM EST05/06/2025 10:20 AM EST Narrative Authorizing ProviderResult TypeResult StatusJose Mendez MDLABORATORYFinal ResultPerforming OrganizationAddressCity/State/ZIP CodePhone Number [address] [address] * (ABNORMAL) HEPATIC FUNCTION PNL (05/06/2025 10:20 AM EST)ComponentValueRef RangeTest MethodAnalysis TimePerformed AtPathologist SignatureAlbumin4.03.9 - 4.9 g/dL05/06/2025 10:29 PM [facility] MAIN LABBilirubin, Total0.40.2 - 1.3 mg/dL05/06/2025 10:29 PM [facility]UN[facility] MA[facility] LABBilirubin, Direct 0.2<0.3 mg/dL05/06/2025 10:29 PM [facility] LABAlkaline Nwgbmqnbouy633(H)34 - 123 U/L107/06/2024 10:29 PM [facility] LAB OUV264(H)13 - 35 U/L107/06/2024 10:29 PM [facility] QKWJRC189(H)7 - 38 U/L107/06/2024 10:29 PM [facility] LABProtein, Total7.36.3 - 8.0 g/dL05/06/2025 10:29 PM [facility] LABSpecimen (Source) Anatomical Location / LateralityCollection Method / VolumeCollection Time Received TimeBloodBLOOD SPECIMEN / UnknownVenipuncture / Ldhljcw8505/06/2025 10:20 AM EST05/06/2025 10:20 AM EST Narrative Authorizing ProviderResult TypeResult StatusWiiggy Mendez MDLABORATORYFinal ResultPerforming OrganizationAddressCity/State/ZIP CodePhone Number [facility] [address] [place] [address], * FLOW CYTOMETRY FOR LEUKEMIA/LYMPHOMA (FCLL) PERFORMABLE (04/19/2025 9:39 AM EDT)ComponentValueRef RangeTest MethodAnalysis TimePerformed AtPathologist SignatureFlow Cytometry Order StatusA??sample was received for potential flow cytometry studies. Following morphologic review, flow cytometric studies will be ordered by the hematopathologist if testing is indicated.04/19/2025 4:57 PM EDTCAULTMAN [facility] LABSpecimen (Source)Anatomical Location / Laterality Collection Method / VolumeCollection TimeReceived TimeBloodBLOOD SPECIMEN / UnknownVenipuncture / Xxetanj2604/19/2025 9:39 AM EDT1 9:40 AM EDT Narrative Authorizing ProviderResult TypeResult StatusAdarsanant Ponec MDLABORATORY Final ResultPerforming OrganizationAddressCity/State/ZIP CodePhone Number [facility] [address] [place] [address], * FLOW SLIDE (04/19/2025 9:39 AM EDT)Specimen (Source)Anatomical Location / LateralityCollection Method / VolumeCollection TimeReceived TimeBloodBLOOD SPECIMEN / UnknownVenipuncture / Imlkxbg7704/19/2025 9:39 AM EDT1 9:40 AM EDT Narrative Authorizing ProviderResult TypeResult StatusAdarsanant Ponce MDLABORATORY Final ResultPerforming OrganizationAddressCity/State/ZIP CodePhone Number [facility] [address] [phone], * (ABNORMAL) LACTATE DEHYDROGENASE (04/19/2025 9:39 AM EDT)ComponentValueRef RangeTest MethodAnalysis TimePerformed AtPathologist XorqqmluiKZ052(H)135 - 214 U/L1 5:25 PM EDTCLEVELAND [facility]INIC MAIN LABSpecimen (Source) Anatomical Location / LateralityCollection Method / VolumeCollection Time Received TimeBloodBLOOD SPECIMEN / UnknownVenipuncture / Dzscfim2404/19/2025 9:39 AM EDT1 9:40 AM EDT Narrative Authorizing ProviderResult TypeResult StatusAdajerrell Ponce MDLABORATORY Final ResultPerforming OrganizationAddressCity/State/ZIP CodePhone Number [facility] [address] [phone], * (ABNORMAL) COMPREHENSIVE METABOLIC PANEL (04/19/2025 9:39 AM EDT)Component ValueRef RangeTest MethodAnalysis TimePerformed AtPathologist Signature Protein, Total7.56.3 - 8.0 g/dL04/19/2025 5:25 PM EDTCLEVELAND [facility] MAIN LAB Albumin4.23.9 - 4.9 g/dL04/19/2025 5:[address] [facility] Calcium, Total9.48.5 - 10.2 mg/dL04/19/2025 5:[address] [facility] MA[facility] LABBilirubin, Total0.50.2 - 1.3 mg/dL04/19/2025 5:[address] [facility] MAIN LABAlkaline Qkirudqukbx270(H)34 - 123 U/L1 5:25 PM EDTCLEVELAND CLINIC MAIN DGQDCM159(H)13 - 35 U/L1 5:[address] [facility] FWCOQR296(H)7 - 38 U/L1 5:[address] [facility] EKIXavfqyl43 (L)74 - 99 mg/dL04/19/2025 5:25 PM EDTCLEVELAND CLINIC MAIN LABComment: The [place] Diabetes Association (ADA) provides guidance for cutoff values for fasting glucose andrandom glucose. The ADA defines fasting as no [...] Standards of Medical Care in Diabetes 2016, [place] [employer] Association. Diabetes Care. 2016.39(Suppl 1). BZC435 - 21 mg/dL04/19/2025 5:25 PM [facility] MAIN LABCreatinine0.77 0.58 - 0.96 mg/dL04/19/2025 5:25 PM [facility] MAIN YGTLhkhjz534652 - 144 mmol/L1 5:25 PM [facility] MAIN LABPotassium4.23.7 - 5.1 mmol/L1 5:25 PM [facility] MAIN TIAItavzpjl13363 - 107 mmol/L 04/19/2025 5:25 PM [facility] MAIN DTILJ15591 - 30 mmol/L1 5:25 PM [facility] MAIN LABAnion Nhn440 - 15 mmol/L1 5:25 PM [facility] MAIN LABEstimated Glomerular Filtration Qaza527>=60 mL/min/1.73m 04/19/2025 5:25 PM [facility] MAIN LABComment:Estimated Glomerular Filtration Rate (eGFR) is calculated using the 2020 CKD-EPI creatinine equation. This equation utilizes serum creatinine, sex, and age as parameters. The creatinine assay has traceable calibration to isotope dilution-mass spectrometry. Refer to KDIGO guidelines for clinical interpretation. In patients with unstable renal function, e.g. those with acute kidney injury, the eGFRmay not accurately reflect actual GFR.Specimen (Source)Anatomical Location / LateralityCollection Method / VolumeCollection TimeReceived TimeBloodBLOOD SPECIMEN / UnknownVenipuncture / Roqjelv4404/19/2025 9:39 AM EDT1 9:40 AM EDT Narrative Authorizing ProviderResult TypeResult StatusAdars Genaepmagdiel MDLABORATORY Final ResultPerforming OrganizationAddressCity/State/ZIP CodePhone Number [facility] [address] [place] [address], * (ABNORMAL) COMPLETE BLOOD COUNT AND DIFFERENTIAL (04/19/2025 9:39 AM EDT) ComponentValueRef RangeTest MethodAnalysis TimePerformed AtPathologist FcwrbthkoTHT34.13(H)3.70 - 11.00 k/uL04/19/2025 9:52 AM EDTNORTASCENSION [facility]B LABRBC4.413.90 - 5.20 m/uL04/19/2025 9:52 AM [facility] LFEPczfbugelw15.711.5 - 15.5 g/dL04/19/2025 9:52 AM EDT [facility] PWTSsxhxjxiga51.636.0 - 46.0 %04/19/2025 9:52 AM EDTNORTASCENSION [facility] FTERCA10.980.0 - 100.0 fL 04/19/2025 9:52 AM [facility]TNOWELCH [facility] EZWKMR66.326.0 - 34.0 pg04/19/2025 9:52 AM EDTNOWELCH [facility] QONKMIW02.730.5 - 36.0 g/dL04/19/2025 9:52 AM EDTNORTASCENSION [facility] LABRDW-CV13.1 11.5 - 15.0 %04/19/2025 9:52 AM EDTNORTASCENSION [facility] LAB Platelet Lyqjz329678 - 400 k/uL04/19/2025 9:52 AM EDTNORTASCENSION [facility] LABMPV9.69.0 - 12.7 fL04/19/2025 9:52 AM EDTJE[facility] LABNeutrophils %67.4%04/19/2025 9:52 AM EDTNOWELCH [facility] LABAbs Neut12.22(H)1.45 - 7.50 k/uL04/19/2025 9:52 AM EDT [facility] LABLymphocytes %22.5%04/19/2025 9:52 AM EDT [facility] LABAbs Lymph4.08(H)1.00 - 4.00 k/uL 04/19/2025 9:52 AM EDTNORTASCENSION MAC[facility] LABMonocytes %6.9% 04/19/2025 9:52 AM [facility]DSUM[facility] LABAbs Mono1.25(H) <0.87 k/uL04/19/2025 9:52 AM [facility]DSUMM[facility] LAB Eosinophils %0.4%04/19/2025 9:52 AM [facility]DSUM[facility] Abs Eosin0.07<0.46 k/uL04/19/2025 9:52 AM EDTNORTASCENSION [facility] LABBasophils %0.5%04/19/2025 9:52 AM [facility]DSUM[facility] LAB Abs Baso0.09<0.11 k/uL04/19/2025 9:52 AM EDSUMM[facility] LABImmature Granulocytes %2.3%04/19/2025 9:52 AM EDSUMM[facility] LABAbs Immature Gran0.42(H)<0.10 k/uL04/19/2025 9:52 AM EDTNOWELCH [facility] LABNRBC0.0/100 WBC04/19/2025 9:52 AM EDSUMM[facility] LABAbsolute nRBC<0.01<0.01 k/uL04/19/2025 9:52 AM EDT [facility] LABDiff GwsiErpv31/20/2025 9:52 AM EDT [facility] LABSpecimen (Source)Anatomical Location / LateralityCollection Method / VolumeCollection TimeReceived TimeBloodBLOOD SPECIMEN / UnknownVenipuncture / Zocvyoy2104/19/2025 9:39 AM EDT1 9:40 AM EDT Narrative Authorizing ProviderResult TypeResult StatusOrlando Ponce MDLABORATORY Final ResultPerforming OrganizationAddressCity/State/ZIP CodePhone Number [facility] [address] [place] [address] * HIV AB 1&2 SCREEN (12/20/2008 4:09 PM EDT)ComponentValueRef RangeTest Method Analysis TimePerformed AtPathologist SignatureHIV 1 & 2 Ab (EIA)Non ReactiveNR [facility] MAIN LABORATORYComment: If results are indeterminate or otherwise inconsistent with an individual's clinical presentation or risk profile for HIV infection a repeat specimen is requested. A repeat specimen is also recommended for any individual identified positive for the first time. Specimen (Source)Anatomical Location / LateralityCollection Method / Volume Collection TimeReceived TimeBlood specimen (specimen)BLOOD SPECIMEN / Unknown 12/20/2008 4:09 PM EDT Narrative Authorizing ProviderResult TypeResult StatusMichaelusman Sanchez JonaLABORATORYFinal ResultPerforming OrganizationAddressCity/State/ZIP CodePhone Number [facility] [address] [place] [address] * PAP FLUID CERVICAL SCREENING (11/23/2008 9:34 AM EDT)ComponentValueRef Range Test MethodAnalysis TimePerformed AtPathologist SignatureTranscription Specimen #: [id number] Submitting Physician: VIDHYA TENORIO M.D. ??(IN10) SPECIMEN SUBMITTED A: CERVICAL,SCREENING,FLUID FINAL DIAGNOSIS A. CERVICAL,SCREENING,FLUID SATISFACTORY FOR INTERPRETATION. NEGATIVE FOR INTRAEPITHELIAL LESION OR MALIGNANCY. PREDOMINANCE OF COCCOBACILLI CONSISTENT WITH SHIFT IN VAGINAL BART. Eveline A Landry CT(ASCP) ? (Electronic Signature) CLINICAL DATA ROUTINE EXAM Date of Last Menstrual Period: 08/14/08 OB-05/02 Additional Testing: Reflex HPV testing for ASCUS STAINS A: CERVICAL,SCREENING,FLUID ? THIN PREP MANAGER CIVIL x 1 Mallory Jones M.D., Teletray Operator : 1985 (Age: 23) F Date of Report: 12/01/2008 Date of Procedure: 11/23/2008 Date of Receipt: 11/24/2008 Submitted by: VIDHYA TENORIO M.D. ??(IN10) Location: IN20 Test performed by: ??[facility], [address] [place] [address] ??[id number] COPATHPLUSSpecimen (Source)Anatomical Location / LateralityCollection Method / VolumeCollection TimeReceived TimeSpecimen from uterine cervix (specimen) CERVICAL / Lnbgfba8711/23/2008 9:34 AM EDT11/24/2008 11:28 AM EDT Narrative Authorizing ProviderResult TypeResult StatusDeusman TenorioCYTOLOGYFinal Result Performing OrganizationAddressCity/State/ZIP CodePhone Number [facility] [address] [place] [address] from Last 3 Months or Most Recently Relevant to Health Maintenance Insurance Care Teams Team MemberRelationshipSpecialtyStart DateEnd Date Ashley Issa NP [address] [place] [phone] PCP - GeneralNurse Bsvkmdxyicig68/18/24 Lorelei Colin APRN [address] [place] [address] ReferringFamily Medicine03/14/20 Kamila Aleman CNP [address] [place], [place] [id number] Occupational Medicine02/06/24
--- OUTSIDE RECORDS SUMMARY | 2025-06-18 18:43 | XMS_ITS | Clinical Summary ---
Author Organization [facility] Address [address], [address] [place] [address] Care Team Providers Care Star Route Mail Driver Name Role Phone Ashley Issa CASING SEWER - DIRECTOR OF PHARMACY Primary Care Provider [phone] Allergies Active AllergyReactionsCriticalityNoted DateCommentsWound Dressing Adhesive 05/11/2024 Other Reaction(s): GI intolerance Plastic medical tape Medications MedicationSigDispense QuantityRefillsLast FilledStart DateEnd DateStatus hydrOXYzine HCl (ATARAX) 25 MG tablet 1 tablet as needed Orally three times a day for 30 days01/09/2024ctive ursodiol (ACTIGALL) 300 MG capsule Take 1 capsule by mouth 2 times daily05/21/2024ctive triamcinolone (ARISTOCORT) 0.5 % ointment Apply topically 2 times dailyActive vitamin D3 (CHOLECALCIFEROL) 125 MCG (5000 UT) TABS tablet Take 1 tablet by mouth Every DayActive B Complex-C (SUPER B COMPLEX/VITAMIN C) TABS Take 2 tablets by mouth 2 times dailyActive Cobalamin Combinations (5-MTHF PLUS B12 PO) Take 1 tablet by mouth dailyActive escitalopram (LEXAPRO) 10 MG tablet 5Active Lactobacillus (AZO VAGINAL HEALTH PROBIOTIC PO) Take 1 tablet by mouth dailyActive predniSONE (DELTASONE) 5 MG tablet Take 1 tablet by mouth See Admin Instructions 4 Daily (2 in the AM, 2 in the PM) Active rifAMPin (RIFADIN) 300 MG capsule Take 1 capsule by mouth dailyActive triamcinolone (KENALOG) 0.1 % cream Apply topically 2 times daily5Active doxycycline hyclate (VIBRAMYCIN) 100 MG capsule Take 1 capsule by mouth daily TAKE WITH FOOD5Active fluocinonide (LIDEX) 0.05 % external solution Apply pfbevqctj31/16/2025tive ketoconazole (NIZORAL) 2 % shampoo Apply topically LATHER ON SCALP THREE TIMES A WEEK. LET SIT FOR 3-4 MINUTES THEN RINSE.5Active budesonide (ENTOCORT EC) 3 MG delayed release capsule Take 2 capsules by mouth dailyExpired Active Problems ProblemNoted DateDiagnosed DateHigh blood leukocyte count04/06/2025bnormal blood chemistry test05/22/2024rimary biliary xoktesfqzca17/22/2024bnormal celiac antibody panel05/22/2024urrent pxbvxj4101/29/2024 Overview (01/29/2024): Added secondary to documentation in Social History. Encounters DateTypeDepartmentCare LyunUmwupzqrote73/13/2025Results Follow-Up [facility] Rheumatology [address] [place] [id number] Jessee Velazquez MD 05/12/2025 1:59 PM EST - 05/12/2025 11:59 PM ESTHospital Encounter [facility] PFT [address] [place], [place] [phone] Jessee Velazquez MD Dyspnea, unspecified type Discharge Disposition: Home or Self Care05/12/2025 1:58 PM EST - 05/14/2025 11:59 PM ESTHospital Encounter [facility] Non-Invasive Cardiology [address] [place], [place] [phone] Jessee Velazquez MD Dyspnea, unspecified type Discharge Disposition: Home or Self Care04/13/2025 12:25 PM EDT - 04/13/2025 4:04 PM EDTEmergency [facility] Department [address] [place], [place] [id number] Abdiaziz Chester MD Leukocytosis, unspecified type (Primary Dx); Generalized abdominal pain; Elevated liver enzymes; Sinus tachycardia; Hepatomegaly; Splenomegaly; Cyst of right ovary Discharge Disposition: Home or Self Care04/13/20254678Zuqpbf77/09/2025 10:00 AM EDT Office Visit [facility] Rheumatology [address] [place] [phone] Jessee Velazquez MD Left upper quadrant pain (Primary Dx); Dyspnea, unspecified type; Autoimmune hepatitis (HCC); Primary biliary cholangitis (HCC); Centromere antibody ypfnfsjz08/06/2025 10:28 AM EDT - 04/05/2025 11:59 PM EDT Hospital Encounter [facility] Laboratory [address] [place] [address] Positive SUSAN (antinuclear antibody); Arthralgia, unspecified joint Discharge Disposition: Home or Self Care04/05/2025Results Follow-Up [facility] Rheumatology [address] [place] [address] Jessee Velazquez MD 04/05/2025Orders Only [facility] Rheumatology [address] [place] [address] Jessee Velazquez MD Positive SUSAN (antinuclear antibody) (Primary Dx); Arthralgia, unspecified joint03/29/2025Orders Only [facility] Rheumatology [address] [place] [address] Jessee Velazquez MD Leukocytosis, unspecified type (Primary Dx)from Last 3 Months Social History Tobacco UseTypesPacks/DayYears UsedDateSmoking Tobacco: Every DayCigarettes0.516 Started: 07/01/2009Passive Smoke Exposure: NeverSmokeless Tobacco: Never Comments:Would like to work on quitting with my PCP this winter Alcohol UseStandard Drinks/WeekCommentsNot Currently0 (1 standard drink = 0.6 oz pure alcohol)Interpersonal Safety Domain Source: IP Abuse ScreeningAnswerDate RecordedPhysical zacdyZrhgye98/22/2024Verbal osetgNwtwrn30/22/2024Emotional qofhvHcvtyy34/22/2024Financial zodbqVvwkjp45/22/2024Sexual johdwGnwuvv82/22/2024 CommentsNoSex and Gender InformationValueDate RecordedSex Assigned at QdbxsEsozoi59/09/2024 8:53 AM EDTLegal LnwUukbrr07/07/2019 9:55 AM ESTGender XwltnqtrTppuch39/09/2024 8:53 AM EDTSexual CupuxwjhjevSlwtoptv51/02/2024 10:48 AM EDT Last Filed Vital Signs Vital SignReadingTime TakenCommentsBlood Cwbbbpkz110/9005/12/2025 2:08 PM EST Ohcap281204/13/2025 3:49 PM NSJHoexsvbmvjj21.1 ??C (98.8 ??F)04/13/2025 12:24 PM EDTRespiratory Eniv9112 1:15 PM EDTOxygen Kuvqigvapm24%04/13/2025 3:49 PM EDTInhaled Oxygen Concentration--Huqrka72.4 kg (172 lb 13.5 oz)05/12/2025 2:08 PM YKNGwmpqt253.6 cm (5' 5.98 )05/12/2025 2:08 PM ESTBody Mass Index27.91 05/12/2025 2:08 PM EST Plan of Treatment DateTypeDepartmentCare Team (Latest Contact Info)Ilegrgahpih14/12/2026 9:30 AM ESTOffice Visit [address] [place] [address] [place] [address] [place] [address] [address] [place] [address] Return in about 3 months (around 07/09/2025).Health MaintenanceDue DateLast Done CommentsDepression Hpbcgp2701/19/1997Varicella vaccine (1 of 2 - 13+ 2-dose series)1998HIV wvqegg8401/20/2000DTaP/Tdap/Td vaccine (1 - Tdap)01/20/2004 Hepatitis A vaccine (1 of 2 - Risk 2-dose series)01/20/2004Hepatitis B vaccine (1 of 3 - 19+ 3-dose series)01/20/2004Pneumococcal 0-49 years Vaccine (1 of 2 - PCV)01/20/2004Pap smear2006Cervical cancer mmoknn8901/19/2015HPV (without or with Pap)2015Breast cancer ocdfla7101/19/20252385Valdjq81/22/2025Flu vaccine (#1)01/29/2025OVID-19 Vaccine ( season)2025Hepatitis C screen Lwydecnqa43/06/2024HPV vaccine (No Doses Required)CompletedHib vaccineAged OutNo longer eligible based on patient's age to complete this topicMeningococcal (ACWY) vaccineAged OutNo longer eligible based on patient's age to complete this topicMeningococcal B vaccineAged OutNo longer eligible based on patient's age to complete this topicPolio vaccineAged OutNo longer eligible based on patient's age to complete this topic Procedures Procedure NamePriorityDate/TimeAssociated DiagnosisCommentsECHO (TTE) COMPLETE Mqdoccx6505/12/2025 2:38 PM EST Dyspnea, unspecified type FULL PFT STUDY WITH GQODKFHMIOFMVFJukqpfs79/12/2025 2:30 PM EST Dyspnea, unspecified type CT ABDOMEN PELVIS W IV YUXWJXBRIUCJ69/14/2025 1:38 PM EDT AMMONIAAdd-On04/13/2025 1:30 PM EDT XR CHEST YMITGBRCJGKA20/14/2025 12:55 PM EDT LKKGMQUFPMPO43/14/2025 12:45 PM EDT NRZDIHIOPY35/14/2025 12:45 PM EDT LACTIC VGEMTYGA79/14/2025 12:45 PM EDT COMPREHENSIVE METABOLIC OVFBAXJSC75/14/2025 12:45 PM EDT CBC WITH AUTO SZKHALAVFOPHXXTL10/14/2025 12:45 PM EDT EKG 12-XUYRISAY21/14/2025 12:44 PM EDT WAMQULM-NZQYuz-Ox05/14/2025 12:41 PM EDT CGPZNKT8204/13/2025 12:41 PM EDT D-DIMER, MJYWKVCYFGKBMYFH68/14/2025 12:41 PM EDT URINALYSIS WITH ODFFROLMIWJJMBK77/14/2025 12:28 PM EDT , BSWMBONMT34/14/2025 12:28 PM EDT COMPREHENSIVE METABOLIC CXRCKEymesty39/06/2025 10:42 AM EDT Positive SUSAN (antinuclear antibody) Arthralgia, unspecified joint CBC WITH AUTO ZANPUMBGABZGJwpdxxl89/06/2025 10:42 AM EDT Positive SUSAN (antinuclear antibody) Arthralgia, unspecified joint HEPATITIS C HXNOQWENObrfqup86/06/2024 8:37 AM EDT Elevated liver enzymes from Last 3 Months or Most Recently Relevant to Health Maintenance Results * (ABNORMAL) ECHO (TTE) COMPLETE (05/12/2025 2:38 PM EST)ComponentValueRef Range Test MethodAnalysis TimePerformed AtPathologist SignatureBody Surface Area1.91 m2BSMH CV CPACSLV EDV X2O07nZSOLQ CV CPACSLV EDV N7S11mAXJXL CV CPACSLV ESV E0K56rFLGED CV CPACSLV ESV B9A18kJVGCC CV CPACSIVSd1.0(A)0.6 - 0.9 cmBSMH CV CPACSLVIDd3.93.9 - 5.3 cmBSMH CV CPACSLVIDs2.8cmBSMH CV CPACSLVOT Mean Supwkxve7fzFgLQMW CV CPACSLVOT VTI22.2cmBSMH CV CPACSLVOT Peak Velocity1.3m/s [facility] CV CPACSLVOT Peak Yfhhfvcj6omScRQKO CV CPACSLVPWd0.90.6 - 0.9 cmBSMH CV CPACSLV E' Lateral Ozncnmua42.10cm/sBSMH CV CPACSLV Ejection Fraction A2C56% [facility] CV CPACSLV Ejection Fraction A4C56%[facility] CV CPACSEF LY7355 - 100 %[facility] CV CPACSLA Minor Axis4.4cmBSMH CV CPACSLA Major Axis4.5cmBSMH CV CPACSLA Area 2C 13.0sq0XKSL CV CPACSLA Area 4C10.9yj9ZNCF CV CPACSLA Volume MOD J7S7580 - 52 mLBSMH CV CPACSLA Volume MOD A4C21(A)22 - 52 mLBSMH CV CPACSLA Volume PV9958 - 52 mLBSMH CV CPACSAV Cusp Mmode1.5cmBSMH CV CPACSAV Mean Fpkqzsnm4roQtTQPN CV CPACSAV VTI23.3cmBSMH CV CPACSAV Mean Velocity1.0m/sBSMH CV CPACSAV Peak Velocity1.4m/sBSMH CV CPACSAV Peak Gtsauxlz4frDzWIME CV CPACSSinotubular Junction2.1cmBSMH CV CPACSAortic Sinus Valsalva2.6cmBSMH CV CPACSMV E Wave Deceleration Ckhp033.0msBSMH CV CPACSMV A Velocity1.05m/sBSMH CV CPACSMV E Velocity0.67m/sBSMH CV CPACSPV Max Velocity1.1m/sBSMH CV CPACSPV Peak Gradient 5mmHgBSMH CV CPACSTAPSE1.7>=1.7 cmBSMH CV CPACSTR Max Velocity1.74m/sBSMH CV CPACSTR Peak Mybzbeth63pcOzNOAU CV CPACSFractional Shortening 9R5128 - 44 % [facility] CV CPACSLV ESV Index F2V16eD/m2BSMH CV CPACSLV EDV Index R4J77zC/m2BSMH CV CPACSLV ESV Index G2Q10qI/m2BSMH CV CPACSLV EDV Index R9M70fZ/m2BSMH CV CPACSLVIDd Index2.07cm/m2BSMH CV CPACSLVIDs Index1.49cm/m2BSMH CV CPACSLV RWT Ratio0.46BSMH CV CPACSLV Mass 2D113.667 - 162 gBSMH CV CPACSLV Mass 2D Index 60.443 - 95 g/m2BSMH CV CPACSMV E/A0.64BSMH CV CPACSE/E' Lateral6.04BSMH CV CPACSLA Volume Index BP14(A)16 - 34 ml/m2BSMH CV CPACSLA Volume Index MOD A2C 1616 - 34 ml/m2BSMH CV CPACSLA Volume Index MOD A4C11(A)16 - 34 ml/m2BSMH CV CPACSAortic Sinus Valsalva Index1.38cm/m2BSMH CV CPACSAV Velocity Ratio0.93 [facility] CV CPACSLVOT:AV VTI Index0.95BSMH CV CPACSEst. RA Fbbknmtf5ucOsCCBX CV OMJQHIKYE78pgLfXWDN CV CPACSEF Stqqyiicd46%BSMH CV CPACSAnatomical Region LateralityModalityEchocardiographySpecimen (Source)Anatomical Location / LateralityCollection Method / VolumeCollection TimeReceived Time Narrative 05/12/2025 5:25 PM EST Left Ventricle: Normal left ventricular systolic function with a visually estimated EF of 55 - 60%. Left ventricle size is normal. Mildly increased wall thickness. Normal wall motion. Normal diastolic function. ?No significant valvular heart disease was seen. No previous studies were available for comparison. No significant cardiac cause of shortness of breath was identified from this study. ?? Left Ventricle Normal left ventricular systolic function with a visually estimated EF of 55 - 60%. Left ventricle size is normal. Mildly increased wall thickness. Normal wall motion. Normal diastolic function. Right Ventricle Right ventricle size is normal. Normal systolic function. Left Atrium Left atrium size is normal. Right Atrium Right atrium size is normal. IVC/SVC IVC diameter is normal or and decreases greater than 50% during inspiration; therefore the estimated right atrial pressure is normal (~3 mmHg). IVC size is normal. Mitral Valve Valve structure is normal. No regurgitation. No stenosis noted. Tricuspid Valve Valve structure is normal. Trace regurgitation. Aortic Valve Valve structure is normal. No regurgitation. No stenosis. Pulmonic Valve The pulmonic valve visualization is suboptimal but appears to be functioning normally. Physiologically normal regurgitation. No stenosis noted. Ascending Aorta Normal sized aortic root and ascending aorta. Pericardium No pericardial effusion. Study Details Image quality: adequate. No contrast was given. Authorizing ProviderResult TypeResult StatusRaFall River Emergency Hospital ECHO ORDERABLES Final Result * Full PFT Study With Bronchodilator (05/12/2025 2:30 PM EST) Narrative Eyad Alfaro MD - 05/12/2025 2:30 PM EST Eyad Alfaro MD 05/16/2025 5:52 PM PULMONARY FUNCTION TEST Spirometry shows normal postbronchodilator FEV1, FVC and FEV1/FVC ratio. ??Bronchodilator sponsor is absent. ??Static lung volumes shows normal total lung capacity, residual volume and expiratory reserve volume. ??Flow-volume loop is normal. ??Diffusion capacity is normal. Impression: Normal PFT Authorizing ProviderResult TypeResult StatusRaparma community [facility] ORDERABLESFinal Result * CT ABDOMEN PELVIS W IV CONTRAST Additional Contrast? None (04/13/2025 1:38 PM EDT)Anatomical RegionLateralityModalityAbdomen, Pelvis, HipComputed Tomography Specimen (Source)Anatomical Location / LateralityCollection Method / Volume Collection TimeReceived Time04/13/2025 3:02 PM EDT Impressions 04/13/2025 3:10 PM EDT Normal appearance of the appendix. Hepatomegaly. ??Minimally nodular contour of the liver parenchyma may be related to developing cirrhosis. ??Correlation with liver enzymes may be helpful. Splenomegaly. 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 ??Nonobstructing bilateral renal calculi. 4 cm right-sided ovarian cyst. Small volume free fluid in the pelvis which is likely physiologic nature Additional findings noted above. RECOMMENDATIONS: Right ovarian simple-appearing cyst measuring 4 cm. No follow-up imaging is recommended. Reference: JACR 2019;17(2):248-254 Multiple lesions, including subcentimeter right Bosniak I benign renal cyst. No follow-up imaging is recommended. JACR 2017; 264-273, Management of the Incidental Renal Mass on CT, [employer] 2020; 814-848, Bosniak Classification of Cystic Renal Masses, Version 2019. Narrative 04/13/2025 3:10 PM EDT EXAMINATION: CT OF THE ABDOMEN AND PELVIS WITH CONTRAST 04/13/2025 1:38 pm TECHNIQUE: CT of the abdomen and pelvis was performed with the administration of intravenous contrast. Multiplanar reformatted images are provided for review. Automated exposure control, iterative reconstruction, and/or weight based adjustment of the mA/kV was utilized to reduce the radiation dose to as low as reasonably achievable. COMPARISON: None. HISTORY: ORDERING SYSTEM PROVIDED HISTORY: Abdominal pain/elevated liver enzymes/leukocytosis TECHNOLOGIST PROVIDED HISTORY: Abdominal pain/elevated liver enzymes/leukocytosis Decision Support Exception - unselect if not a suspected or confirmed emergency medical condition->Emergency Medical Condition (MA) FINDINGS: Lower Chest: Mild dependent atelectasis in the lower lobes. ??Imaged cardiac chambers unremarkable in appearance. ??No pericardial effusion or pericardial thickening. Organs: No calcified gallstones are seen. ??Common bile duct is within normal limits. ??Right lobe of the liver measures 21 cm in sagittal length. Minimally nodular contour of the liver parenchyma. ??Spleen measures 11.1 cm in sagittal length. ??Adrenal glands and pancreas are normal in appearance. No dilatation of pancreatic duct. No left-sided hydronephrosis. 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 ??Nonobstructing calculi in the left kidney largest which measures approximately 4 mm. ??No hydronephrosis. ??No renal lesion. ??Simple appearing right renal cortical cyst. ??Additional probable cortical cyst in the right kidney which are too small fully characterize. ??Nonobstructing right renal calculus which measures approximately 5 mm. ??Duplication of the right renal collecting system and proximal ureters. ??No hydronephrosis. GI/Bowel: Small volume fecal residuals in the colon. ??No evidence of bowel obstruction. ??No acute inflammatory process identified involving the bowel. The appendix is normal appearance. Pelvis: Small volume free fluid in the pelvis. ??No free air identified. ??4 cm right-sided ovarian cyst. ??Bladder is unremarkable in appearance. ??Small fat containing inguinal hernias. ??No adenopathy or mass. Peritoneum/Retroperitoneum: No retroperitoneal mass or adenopathy. Bones/Soft Tissues: No acute osseous abnormality identified. Procedure Note Vinicio Williamson MD - 04/13/2025 EXAMINATION: CT OF THE ABDOMEN AND PELVIS WITH CONTRAST 04/13/2025 1:38 pm TECHNIQUE: CT of the abdomen and pelvis was performed with the administration of intravenous contrast. Multiplanar reformatted images are provided forreview. Automated exposure control, iterative reconstruction, and/or weightbased adjustment of the mA/kV was utilized to reduce the radiation dose to aslow as reasonably achievable. COMPARISON: None. HISTORY: ORDERING SYSTEM PROVIDED HISTORY: Abdominal pain/elevated liver enzymes/leukocytosis TECHNOLOGIST PROVIDED HISTORY: Abdominal pain/elevated liver enzymes/leukocytosis Decision Support Exception - unselect if not a suspected or confirmed emergency medical condition->Emergency Medical Condition (MA) FINDINGS: Lower Chest: Mild dependent atelectasis in the lower lobes. Imagedcardiac chambers unremarkable in appearance. No pericardial effusion orpericardial thickening. Organs: No calcified gallstones are seen. Common bile duct is withinnormal limits. Right lobe of the liver measures 21 cm in sagittal length. Minimally nodular contour of the liver parenchyma. Spleen measures 11.1cm in sagittal length. Adrenal glands and pancreas are normal inappearance. No dilatation of pancreatic duct. No left-sided hydronephrosis. Duplication left renal collecting systemand proximal ureters. Nonobstructing calculi in the left kidney largestwhich measures approximately 4 mm. No hydronephrosis. No renal lesion.Simple appearing right renal cortical cyst. Additional probable cortical cystin the right kidney which are too small fully characterize. Nonobstructing right renal calculus which measures approximately 5 mm. Duplication ofthe right renal collecting system and proximal ureters. No hydronephrosis. GI/Bowel: Small volume fecal residuals in the colon. No evidence ofbowel obstruction. No acute inflammatory process identified involving thebowel. The appendix is normal appearance. Pelvis: Small volume free fluid in the pelvis. No free air identified. 4cm right-sided ovarian cyst. Bladder is unremarkable in appearance. Smallfat containing inguinal hernias. No adenopathy or mass. Peritoneum/Retroperitoneum: No retroperitoneal mass or adenopathy. Bones/Soft Tissues: No acute osseous abnormality identified. IMPRESSION: Normal appearance of the appendix. Hepatomegaly. Minimally nodular contour of the liver parenchyma may be related to developing cirrhosis. Correlation with liver enzymes may be helpful. Splenomegaly. 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 Nonobstructingbilateral renal calculi. 4 cm right-sided ovarian cyst. Small volume free fluid in the pelvis which is likely physiologic nature Additional findings noted above. RECOMMENDATIONS: Right ovarian simple-appearing cyst measuring 4 cm. No follow-up imagingis recommended. Reference: JACR 2019;17(2):248-254 Multiple lesions, including subcentimeter right Bosniak I benign renalcyst. No follow-up imaging is recommended. JACR 2018 Aug; 264-273, Management of the Incidental Renal Mass on CT, [employer] 2020; 814-848, Bosniak Classification of Cystic RenalMasses, Version 2019. Authorizing ProviderResult TypeResult StatusAbdiaziz Chester MDIMG CT ORDERABLES Final Result * Ammonia (04/13/2025 1:30 PM EDT)ComponentValueRef RangeTest MethodAnalysis TimePerformed AtPathologist BhqlcgzncKppacfu4274 - 51 umol/L1 1:30 PM EDST. [facility] LABSpecimen (Source)Anatomical Location / LateralityCollection Method / VolumeCollection TimeReceived TimeBloodBLOOD SPECIMEN / Bemxovy5504/13/2025 1:30 PM EDT1 1:33 PM EDT Narrative Authorizing ProviderResult TypeResult StatusAbdiaziz Chester MDCHEMISTRY ORDERABLESFinal ResultPerforming OrganizationAddressCity/State/ZIP CodePhone Number [facility] [address] [phone] * XR CHEST PORTABLE (04/13/2025 12:55 PM EDT)Anatomical RegionLateralityModality ChestComputed RadiographySpecimen (Source)Anatomical Location / Laterality Collection Method / VolumeCollection TimeReceived Time04/13/2025 2:01 PM EDT Impressions 04/13/2025 2:02 PM EDT 1. No acute cardiopulmonary process. Narrative 04/13/2025 2:02 PM EDT EXAM: 1 VIEW(S) XRAY OF THE CHEST 04/13/2025 12:55:29 PM COMPARISON: None available. CLINICAL HISTORY: Palpitations. FINDINGS: LUNGS AND PLEURA: No focal pulmonary opacity. No pulmonary edema. No pleural effusion. No pneumothorax. HEART AND MEDIASTINUM: No acute abnormality of the cardiac and mediastinal silhouettes. BONES AND SOFT TISSUES: No acute osseous abnormality. Procedure Note Talon Smith MD - 04/13/2025 EXAM: 1 VIEW(S) XRAY OF THE CHEST 04/13/2025 12:55:29 PM COMPARISON: None available. CLINICAL HISTORY: Palpitations. FINDINGS: LUNGS AND PLEURA: No focal pulmonary opacity. No pulmonary edema. No pleural effusion. No pneumothorax. HEART AND MEDIASTINUM: No acute abnormality of the cardiac and mediastinal silhouettes. BONES AND SOFT TISSUES: No acute osseous abnormality. IMPRESSION: 1. No acute cardiopulmonary process. Authorizing ProviderResult TypeResult StatusRichcamila Chester MDVAL[facility] [place] DIAGNOSTIC IMAGING ORDERABLESFinal Result * (ABNORMAL) CBC with Auto Differential (04/13/2025 12:45 PM EDT) Only the most recent of2 resultswithin the time period is included. ComponentValueRef RangeTest MethodAnalysis TimePerformed AtPathologist Signature WBC18.7(H)3.5 - 11.3 k/uL04/13/2025 12:45 PM [facility] RBC4.563.95 - 5.11 m/uL04/13/2025 12:45 PM [facility] Xbvnygoepp69.2(H)11.9 - 15.1 g/dL04/13/2025 12:45 PM [facility] CKNNnrrrqhjvz67.736.3 - 47.1 %04/13/2025 12:45 PM [facility] RMEDUP28.082.6 - 102.9 fL04/13/2025 12:45 PM [facility] CIMJCH14.325.2 - 33.5 pg04/13/2025 12:45 PM [facility] MDGAMFS99.028.4 - 34.8 g/dL04/13/2025 12:45 PM [facility] CENAWL00.011.8 - 14.4 %04/13/2025 12:45 PM [facility] KERPazgkxtmv841571 - 453 k/uL04/13/2025 12:45 PM [facility] FJRPBT24.08.1 - 13.5 fL04/13/2025 12:45 PM [facility] LABNRBC Automated0.00.0 per 100 WBC04/13/2025 12:45 PM [facility] LABNeutrophils %6236 - 65 %04/13/2025 12:45 PM [facility] LABLymphocytes %3024 - 43 %04/13/2025 12:45 PM [facility] LABMonocytes %43 - 12 %04/13/2025 12:45 PM [facility] LABEosinophils %21 - 4 %04/13/2025 12:45 PM [facility] LABImmature Granulocytes %2(H)0 %04/13/2025 12:45 PM EDT [facility] LABBasophils %00 - 2 %04/13/2025 12:45 PM [facility] LABNeutrophils Vdqxarhm88.60(H)1.50 - 8.10 k/uL04/13/2025 12:45 PM [facility] LABLymphocytes Absolute5.61(H)1.10 - 3.70 k/uL04/13/2025 12:45 PM [facility] LABMonocytes Absolute0.750.10 - 1.20 k/uL04/13/2025 12:45 PM [facility] LABEosinophils Absolute0.370.00 - 0.44 k/uL04/13/2025 12:45 PM [facility] LABImmature Granulocytes Absolute0.37(H)0.00 - 0.30 k/uL 04/13/2025 12:45 PM [facility] LABBasophils Absolute0.000.0 - 0.2 k/uL04/13/2025 12:45 PM [facility] LABMorphology Lsolqc8704/13/2025 12:45 PM [facility] LABSpecimen (Source) Anatomical Location / LateralityCollection Method / VolumeCollection Time Received TimeBLOOD SPECIMEN / Fapxeix3504/13/2025 12:45 PM EDT1 12:53 PM EDT Narrative Authorizing ProviderResult TypeResult StatusAbdiaziz Chester MDHEMATOLOGY ORDERABLESFinal ResultPerforming OrganizationAddressCity/State/ZIP CodePhone Number [facility] [address] [phone] * Troponin (04/13/2025 12:45 PM EDT)ComponentValueRef RangeTest MethodAnalysis TimePerformed AtPathologist SignatureTroponin, High Pqnypqdkkwf64 - 14 ng/L 04/13/2025 12:45 PM [facility] LABComment:High Sensitivity Troponin values cannot be compared with other Troponin methodologies.Specimen (Source)Anatomical Location / LateralityCollection Method / VolumeCollection TimeReceived TimeBloodBLOOD SPECIMEN / Unknown 04/13/2025 12:45 PM EDT1 12:53 PM EDT Narrative Authorizing ProviderResult TypeResult StatusAbdiaziz Chester [facility] OKLAH[facility] CITYHEMISTRY ORDERABLESFinal ResultPerforming OrganizationAddressCity/State/ZIP CodePhone Number [facility] [address] [place] [address] * Lipase (04/13/2025 12:45 PM EDT)ComponentValueRef RangeTest MethodAnalysis TimePerformed AtPathologist PxxdwxmvvRhswfg7368 - 60 U/L1 12:45 PM [facility] LABSpecimen (Source)Anatomical Location / LateralityCollection Method / VolumeCollection TimeReceived TimeBloodBLOOD SPECIMEN / Mnyktpn0604/13/2025 12:45 PM EDT1 12:53 PM EDT Narrative Authorizing ProviderResult TypeResult StatusAbdiaziz Chester MDCHEMISTRY ORDERABLESFinal ResultPerforming OrganizationAddressCity/State/ZIP CodePhone Number [facility] [address] [place] [address] * Lactic Acid (04/13/2025 12:45 PM EDT)ComponentValueRef RangeTest Method Analysis TimePerformed AtPathologist SignatureLactic Acid1.00.5 - 2.2 mmol/L 04/13/2025 12:45 PM [facility] LABSpecimen (Source) Anatomical Location / LateralityCollection Method / VolumeCollection Time Received Time04/13/2025 12:45 PM EDT1 12:53 PM EDT Narrative Authorizing ProviderResult TypeResult StatusRichcamila Chester MDCHEMISTRY ORDERABLESFinal ResultPerforming OrganizationAddressCity/State/ZIP CodePhone Number [facility] [address] [phone] * (ABNORMAL) Comprehensive Metabolic Panel (04/13/2025 12:45 PM EDT) Only the most recent of2 resultswithin the time period is included. ComponentValueRef RangeTest MethodAnalysis TimePerformed AtPathologist Signature Ogvemq707446 - 145 mmol/L1 12:45 PM [facility] Potassium3.93.7 - 5.3 mmol/L1 12:45 PM [facility] VVEPjakqxhf30531 - 107 mmol/L1 12:45 PM [facility] HQPRM55281 - 31 mmol/L1 12:45 PM [facility] Anion Bvi190 - 16 mmol/L1 12:45 PM [facility] LAB Qloddmn0345 - 99 mg/dL04/13/2025 12:45 PM [facility] LABBUN 146 - 20 mg/dL04/13/2025 12:45 PM [facility] [place] LABCreatinine 0.80.50 - 0.90 mg/dL04/13/2025 12:45 PM [facility] LABEst, Glom Filt Rate>90>60 mL/min/1.93v46904/13/2025 12:45 PM [facility] [place] LABComment: ? These results are not intended for use in patients <18 years of age. ? eGFR results are calculated without a race factor using the 2020 CKD-EPI equation. Careful clinical correlation is recommended, particularly when comparing to results calculated using previous equations. The CKD-EPI equation is less accurate in patients with extremes of muscle mass, extra-renal metabolism of creatine, excessive creatine ingestion, or following therapy that affects renal tubular secretion. BUN/Creatinine Mlxkf344 - 12:45 PM [facility] LABCalcium9.68.6 - 10.4 mg/dL04/13/2025 12:45 PM [facility] LABTotal Protein7.56.6 - 8.7 g/dL04/13/2025 12:45 PM [facility] [place] LABAlbumin4.13.5 - 5.2 g/dL04/13/2025 12:45 PM [facility] [place] LABAlbumin/Globulin Ratio1.21.0 - 2.510 12:45 PM [facility] LABTotal Bilirubin0.70.00 - 1.20 mg/dL04/13/2025 12:45 PM [facility] LABAlkaline Odetlgkoequ332(H)35 - 104 U/L 04/13/2025 12:45 PM [facility] VWKEOC773(H)10 - 35 U/L 04/13/2025 12:45 PM [facility] CZRFYS789(H)10 - 35 U/L 04/13/2025 12:45 PM [facility] [place] LABSpecimen (Source) Anatomical Location / LateralityCollection Method / VolumeCollection Time Received TimeBloodBLOOD SPECIMEN / Qdjqfqc7404/13/2025 12:45 PM EDT1 12:53 PM EDT Narrative Authorizing ProviderResult TypeResult StatusRichard [facility] MDCHEMISTRY ORDERABLESFinal ResultPerforming OrganizationAddressCity/State/ZIP CodePhone Number [facility] [address] [place] [address], [facility] [phone] * EKG 12 Lead (04/13/2025 12:44 PM EDT)ComponentValueRef RangeTest Method Analysis TimePerformed AtPathologist SignatureVentricular Kqjc221JBCDFWM [facility] RADIOLOGYAtrial Btuc886MLVZJEN [facility] RADIOLOGYP-R Agtkxtdz128asVYLX [facility] RADIOLOGYQRS Oukvrfmc06waIIPU [facility] RADIOLOGYQ-T Dqefgirk834wbPISG [facility]IOLOGY QTc Calculation (Bazett)424msMHPN [facility] RADIOLOGYP Gaxb63wtsiirzGYEV [facility] RADIOLOGYR Uopw99uzicvwnRDBV [facility] RADIOLOGYT Lely19vwhroupGISR [facility] Specimen (Source)Anatomical Location / LateralityCollection Method / Volume Collection TimeReceived Time04/13/2025 12:44 PM EDT Narrative [facility] - 04/14/2025 8:20 AM EDT Sinus tachycardia Otherwise normal ECG ECG not diagnostic for Acute Coronary Syndrome; consider clinical findings No previous ECGs available Confirmed by Gael More ([id number]) on 04/14/2025 8:20:39 AM Procedure Note Gael More MD - 04/14/2025 Sinus tachycardia Otherwise normal ECG ECG not diagnostic for Acute Coronary Syndrome; consider clinicalfindings No previous ECGs available Confirmed by Gael More ([id number]) on 04/14/2025 8:20:39 AM Authorizing ProviderResult TypeResult StatusAbdiaziz Chester MDECG ORDERABLES Final ResultPerforming OrganizationAddressCity/State/ZIP CodePhone Number [facility] * Protime-INR (04/13/2025 12:41 PM EDT)ComponentValueRef RangeTest Method Analysis TimePerformed AtPathologist HnqjedpzuBatefib22.112.0 - 15.0 sec 04/13/2025 12:41 PM [facility] LABINR0.91 12:41 PM [facility] [place] LABComment: ? Therapeutic Range: Moderate Anticoagulant Intensity: INR = 2.0-3.0 High Anticoagulant Intensity: INR = 2.5-3.5 Specimen (Source)Anatomical Location / LateralityCollection Method / Volume Collection TimeReceived TimeBloodBLOOD SPECIMEN / Snkdche1904/13/2025 12:41 PM EDT 04/13/2025 1:20 PM EDT Narrative Authorizing ProviderResult TypeResult StatusAbdiaziz Chester MDHEMATOLOGY ORDERABLESFinal ResultPerforming OrganizationAddressCity/State/ZIP CodePhone Number [facility] [address] [phone] * D-Dimer, Quantitative (04/13/2025 12:41 PM EDT)ComponentValueRef RangeTest MethodAnalysis TimePerformed AtPathologist SignatureD-Dimer, Quant0.440.00 - 0.59 ug/mL FEU1 12:41 PM EDTMUNIVERSITY [facility]PIT[facility]HU[facility] LABComment: ? When combined with a low clinical probability, a D dimer value of <0.50 ug/mL FEU is considered negative for DVT and PE (negative predictive value of 98%, sensitivity of 97%). If this test is not being used to help rule out DVT and PE, then the following reference range should be utilized: 0.00 - 0.59 ug/mL FEU. The D-Dimer assay is intended for use as an aid in the diagnosis of venous thromboembolism (DVT and PE) and the results should be interpreted in conjunction with the patient's medical history, clinical presentation, and other findings. ? Elevated levels of D-dimer activity can be seen in any state of coagulation activation and is not recommended in patients with therapeutic dose anticoagulant therapy for >24 hours, fibrinolytic therapy within the previous 7 days, trauma or surgery within the previous 4 weeks, disseminated malignancies, aortic aneurysm, sepsis, severe infections, pneumonia, severe skin infections, liver cirrhosis, advanced age, coronary disease, diabetes, and . A very low percentage of patients with DVT may yield D-dimer results below the cutoff of 0.5 ug/mL FEU. ??This is known to be more prevalent in patients with distal DVT. ? Specimen (Source)Anatomical Location / LateralityCollection Method / Volume Collection TimeReceived TimeBloodBLOOD SPECIMEN / Wnnvbdm1404/13/2025 12:41 PM EDT 04/13/2025 12:53 PM EDT Narrative Authorizing ProviderResult TypeResult StatusAbdiaziz Chester MDHEMATOLOGY ORDERABLESFinal ResultPerforming OrganizationAddressCity/State/ZIP CodePhone Number [facility] [address] [place] [address], [facility] [phone] * TSH (04/13/2025 12:41 PM EDT)ComponentValueRef RangeTest MethodAnalysis Time Performed AtPathologist SignatureTSH1.830.27 - 4.20 uIU/mL04/13/2025 12:41 PM [facility] LABSpecimen (Source)Anatomical Location / LateralityCollection Method / VolumeCollection TimeReceived TimeBloodBLOOD SPECIMEN / Cqpqypk9904/13/2025 12:41 PM EDT1 12:54 PM EDT Narrative Authorizing ProviderResult TypeResult StatusAbdiaziz Chester MDCHEMISTRY ORDERABLESFinal ResultPerforming OrganizationAddressty/State/ZIP CodePhone Number [facility] [address] [place] [address] * , Urine (04/13/2025 12:28 PM EDT)ComponentValueRef RangeTest Method Analysis TimePerformed AtPathologist SignaturePregnancy, UrineNEGATIVENEGATIVE 04/13/2025 12:28 PM [facility] [place] LABComment: Specimens with hCG levels near the threshold of the test (25 mIU/mL) may give a negative or indeterminate result. ??In such cases, another test should be performed with a new specimen in 48-72 hours. ??If early is suspected clinically in this setting, correlation with quantitative serum b-hCG level is suggested. Specimen (Source)Anatomical Location / LateralityCollection Method / Volume Collection TimeReceived Time04/13/2025 12:28 PM EDT1 12:33 PM EDT Narrative Authorizing ProviderResult TypeResult StatusAbdiaziz Chester MDANC[facility] ORDERABLES Final ResultPerforming OrganizationAddressCity/State/ZIP CodePhone Number [facility] [address] [place] [address], [facility] [phone] * (ABNORMAL) Urinalysis with Microscopic (04/13/2025 12:28 PM EDT)ComponentValue Ref RangeTest MethodAnalysis TimePerformed AtPathologist SignatureColor, UA BjvptkDmpuge10/14/2025 12:28 PM [facility] LABTurbidity BIMohcnEhscq02/14/2025 12:28 PM [facility] LABGlucose, Ur NEGATIVENEGATIVE mg/dL04/13/2025 12:28 PM [facility] Bilirubin, OnqtcCDNQXIRJLXVECTMV46/14/2025 12:28 PM [facility] LABKetones, UrineNEGATIVENEGATIVE mg/dL04/13/2025 12:28 PM [facility] LABSpecific [place], UA1.0151.010 - 1.4863804/13/2025 12:28 PM [facility] LABUrine Hgb1+(A)HMDPTCRO70/14/2025 12:28 PM [facility] LABpH, Urine7.05.0 - 9.010 12:28 PM [facility] LABProtein, UANEGATIVENEGATIVE mg/dL 04/13/2025 12:28 PM [facility] LABUrobilinogen, Urine Normal0.0 - 1.0 EU/dL04/13/2025 12:28 PM [facility] LAB Nitrite, AhuvgSOOOIQMNGIRXURBW23/14/2025 12:28 PM [facility] LABLeukocyte Esterase, UrineSMALL(A)KBNYDJUJ83/14/2025 12:28 PM EDT [facility] LABWBC, UA5 TO 100 - 5 /HPF04/13/2025 12:28 PM [facility] LABRBC, UA5 TO 100 - 2 /HPF04/13/2025 12:28 PM [facility] LABEpithelial Cells, UA5 TO 100 - 25 /HPF 04/13/2025 12:28 PM [facility] LABSpecimen (Source) Anatomical Location / LateralityCollection Method / VolumeCollection Time Received TimeURINE SPECIMEN / Hczupml5104/13/2025 12:28 PM EDT1 12:33 PM EDT Narrative Authorizing ProviderResult TypeResult StatusAbdiaziz ESPARZA ORDERABLES Final ResultPerforming OrganizationAddressCity/State/ZIP CodePhone Number [facility] [address] [phone] * Hepatitis C Antibody (02/04/2024 8:37 AM EDT)ComponentValueRef RangeTest MethodAnalysis TimePerformed AtPathologist SignatureHepatitis C AbNONREACTIVE TKGNVQKJNAD15/06/2024 8:37 AM EDTMERCY LABORATORIESComment: ? The hepatitis C procedure used in our laboratory is a Chemiluminescent test specific for three recombinant HCV antigens. ??A negative anti-HCV result indicates that the antibodies to hepatitis C virus are not present at this time. Individuals with reactive anti-HCV should be considered infected and infectious until proven otherwise. ??Confirmation of all equivocal or reactive results is recommended by ordering HCV RNA by PCR. Specimen (Source)Anatomical Location / LateralityCollection Method / Volume Collection TimeReceived TimeBloodBLOOD SPECIMEN / Ucrmdsq8902/04/2024 8:37 AM EDT 02/04/2024 8:38 AM EDT Narrative Authorizing ProviderResult TypeResult StatusWeandrew Aleman CASING SEWER - NURSERY MANAGER IMMUNOLOGY ORDERABLESFinal ResultPerforming OrganizationAddressCity/State/ZIP CodePhone Number [facility] [address] [facility]. [place], [place] [address] [phone] [facility] [address] [place], [place] [address] [phone] from Last 3 Months or Most Recently Relevant to Health Maintenance Insurance Care Teams Team MemberRelationshipSpecialtyStart DateEnd Date Ashley Issa APRN - DIRECTOR OF PHARMACY [address] [facility] [place] [address] PCP - GeneralNurse Practitioner02/04/24
--- OUTSIDE RECORDS SUMMARY | 2025-06-18 18:43 | XMS_ITS | Patient Health Record ---
Author Organization [facility] Address [address] [place] [address] Support Name Relationship Address Phone Casandra Guardado Guarantor Unknown Allergies No Known Allergies Reason For Referral No Information Plan Of Treatment No Information Insurance Providers Payer Name Payer Address Payer Phone Subscriber Number Group Number Insured Name Patient Relationship to Insured Coverage Start Date Coverage End Date [place] [address] [place] [address] [id number] Casandra Guardado Self - patient is the insured 9 Medical (General) History Medical History History ICD Code fibromyalgia
--- OUTSIDE RECORDS SUMMARY | 2025-06-18 18:43 | XMS_ITS | Encounter Summary ---
Author Organization [facility] Address [address] [place] [address] Care Team Providers Care Computer Forensics Examiner Name Role Phone Lorelei Colin Lizy MANAGEMENT DEVELOPMENT SPECIALIST Unavailable [phone] Kamila Aleman DRILLING MACHINE OPERATOR Unavailable [phone] Ashley Issa NP Primary Care Provider [phone] Source Comments In the event this information is protected by the Federal Confidentiality of Alcohol and Drug AbusePatient Records regulations: The Federal rules restrict any use of the information to criminally investigate or prosecute any alcohol or drug abuse patient.[facility] Encounter Details DateTypeDepartmentCare Team (Latest Contact Info)Dhooiinwmsd12/05/2025 Get Medical Advice Gastroenterology [address] [address] Jose Mendez MD [address] [place] [address] Prednisone Social History Tobacco UseTypesPacks/DayYears UsedDateSmoking Tobacco: Every DayCigarettes Alcohol UseStandard Drinks/WeekCommentsYes0 (1 standard drink = 0.6 oz pure alcohol)Beer, occasPHQ-2AnswerDate RecordedPHQ-2 ulebu512/02/2021Area Deprivation IndexAnswerDate RecordedNational Score (1-100), lower number is lower wlmx327904/06/2024State Score (1-10), lower number is lower felh946 Data from: https://www.neighborhoodatlas.medicine.[place]/. Last address used for [address] [address]CommentsNoSex and Gender InformationValueDate RecordedSex Assigned at YohpgTudmaq76/05/2021 10:48 AM EDT Legal TpaAbyeuc42/02/2012 10:12 AM ESTGender JmmktzrmJtmphi75/05/2021 10:48 AM EDTSexual CsqucmnknzxBcxhgqjq04/05/2021 10:48 AM EDTdocumented as of this encounter Miscellaneous Notes * Telephone Encounter - Isaiah Gaxiola RN - 06/04/2025 3:43 PM EST Medication request sent via refill medications Isaiah Gaxiola RN June 04, 2025 3:45 PM documented in this encounter Plan of Treatment DateTypeDepartmentCare Team (Latest Contact Info)Trchugtwtey81/02/2026 3:30 PM [facility] [address] [address] Jose Mendez MD [address] [place] [address] LIVEER DIS10/04/2025 9:15 AM EDTOffice Visit [facility] [address] [place] [address] [place] [address] 6 month follow up with lab10/04/2025 9:30 AM EDTVisit (SP) Office Hematology/Oncology [address] [place] [address] [place] [address] Opal Hoover, PA-C [address] [place] [address] 6 month follow up with labdocumented as of this encounter Visit Diagnoses Not on filedocumented in this encounter Care Teams Team MemberRelationshipSpecialtyStart DateEnd Date Ashley Issa NP [address] [place] [address] PCP - GeneralNurse Fzzyobbdikxq53/18/24 Lorelei Colin APRN [address] [place] [address] ReferringFamily Medicine03/14/20 Kamila Aleman CNP [address] [place] [address] Occupational Medicine02/06/24documented as of this encounter
--- OUTSIDE RECORDS SUMMARY | 2025-06-18 18:43 | XMS_ITS | Encounter Summary ---
Author Organization [facility] Address [address] [place] [address] Care Team Providers Care Shade Classifier Name Role Phone Lorelei Colin Lizy CARTON STENCILER Unavailable [phone] Kamila Aleman HEALTH PROMOTION OFFICER Unavailable [phone] Ashley Issa NP Primary Care Provider [phone] Source Comments In the event this information is protected by the Federal Confidentiality of Alcohol and Drug AbusePatient Records regulations: The Federal rules restrict any use of the information to criminally investigate or prosecute any alcohol or drug abuse patient.[facility] Reason for Visit * ReasonOnset DateCommentsRefill Pzcphmr7306/04/2025 Encounter Details DateTypeDepartmentCare Team (Latest Contact Info)Osruizppkli96/05/2025Refill Gastroenterology [address] [id number] Jose Mendez MD [address] [place] [address] Refill Request Social History Tobacco UseTypesPacks/DayYears UsedDateSmoking Tobacco: Every DayCigarettes Alcohol UseStandard Drinks/WeekCommentsYes0 (1 standard drink = 0.6 oz pure alcohol)Beer, occasPHQ-2AnswerDate RecordedPHQ-2 aeewk173/02/2021Area Deprivation IndexAnswerDate RecordedNational Score (1-100), lower number is lower wtgv054304/06/2024State Score (1-10), lower number is lower wizy515 Data from: https://www.neighborhoodatlas.medicine.[facility].edu/. Last address used for [address] [address]CommentsNoSex and Gender InformationValueDate RecordedSex Assigned at RsksbAsowpu21/05/2021 10:48 AM EDT Legal FbzAovabk38/02/2012 10:12 AM ESTGender FfciepbfCozavr46/05/2021 10:48 AM EDTSexual ZxgghvwpwdyZcahfwmk35/05/2021 10:48 AM EDTdocumented as of this encounter Miscellaneous Notes * Telephone Encounter - Isaiah Gaxiola RN - 06/04/2025 3:46 PM EST Pt sent the following mcm: Hello! I am in quite a dilemma. We left for out of town for the next 3 days and I never grabbed my refill I just picked up for my prednisone. I will not have any for the next 3 days and direly will need them. Is it, in any way possible to have it sent in to the local [facility] pharmacy near me to pick upfor tomorrow? [address] [phone] I would greatly appreciate it and my body! Lol Thank you! I am so sorry! Order pended Isaiah Gaxiola RN June 04, 2025 3:46 PM documented in this encounter Plan of Treatment DateTypeDepartmentCare Team (Latest Contact Info)Idcznvpygip96/02/2026 3:30 PM [facility] [address] [address] Jose Mendez MD [address] [place] [phone] LIVEER DIS10/04/2025 9:15 AM EDTOffice Visit [facility] [address] [facility] [place] [address] 6 month follow up with lab10/04/2025 9:30 AM EDTVisit (SP) Office Hematology/Oncology [address] [facility] [place] [address] Opal Hoover, PA-C [address] [place] [address] 6 month follow up with labdocumented as of this encounter Visit Diagnoses Diagnosis Autoimmune hepatitis (HCC)- Primary Autoimmune hepatitis Primary biliary cholangitis (HCC) Liver disease Unspecified disorder of liver documented in this encounter Care Teams Team MemberRelationshipSpecialtyStart DateEnd Date Ashley Issa NP [address] [place] [address] PCP - GeneralNurse Evfwcnmnmkqr50/18/24 Lorelei Colin APRN [address] [place] [address] ReferringFamily Medicine03/14/20 Kamila Aleman CNP [address] [place] [address] Occupational Medicine02/06/24documented as of this encounter
[2025-06-18] MEDS: LIDOCAINE HCL 1% 100 MG/10 ML MDV INJ (19:22)
[2025-06-18] MEDS: DIPHTH,PERTUSS(ACELL),TET VAC 0.5 ML SYRINGE IM (19:48)
[2025-06-18 19:53] VITALS: PULSE 88; O2SAT 97
== END 2025-06-18 19:59 | disposition home or self-care (01) ==
PROVIDERS: Emergency Provider Emergency Medicine
DX: S61.011A Laceration without foreign body of right thumb without damage to nail, initial encounter (principal); W25.XXXA Contact with sharp glass, initial encounter; Y93.G1 Activity, food preparation and clean up; Y92.000 Kitchen of unspecified non-institutional (private) residence as the place of occurrence of the external cause; Z23 Encounter for immunization
CPT/HCPCS: 12001; 90471; 90715; 99283